=== PATIENT | female | born 1955 | race Caucasian/White ===

== ENCOUNTER → 2017-03-16 | Outpatient (CLI) | payer MEDICARE ==
--- NOTE | 2017-03-21 08:17 | MM ---
Reason for exam: screening (asymptomatic). Last mammogram was performed 1 year and 6 months ago. History: Patient is postmenopausal. Took estrogen for 18 years beginning at age 41. Physical Findings: A clinical breast exam by your physician is recommended on an annual basis and results should be correlated with mammographic findings. MG Screening Mammo w CAD Bilateral CC and MLO view(s) were taken. Prior study comparison: September 15, 2015, bilateral MG screening mammo w CAD. February 12, 2015, left breast MG diagnostic mammo LT w CAD. July 25, 2014, bilateral MG screening mammo w CAD. The breast tissue is heterogeneously dense. This may lower the sensitivity of mammography. There is chronic nodularity bilaterally. No significant changes when compared with prior studies. ASSESSMENT: Benign, BI-RAD 2 RECOMMENDATION: Routine screening mammogram of both breasts in 1 year.
== END | disposition home or self-care (01) ==
LOC: RADMAMWWP 07:15
PROVIDERS: ATTEND Family Medicine
DX: Z12.31 Encounter for screening mammogram for malignant neoplasm of breast (principal)

== ENCOUNTER → 2018-05-08 | Outpatient (CLI) | payer MEDICARE ==
--- NOTE | 2018-05-08 15:25 | MM ---
Reason for exam: screening (asymptomatic). Last mammogram was performed 1 year and 2 months ago. History: Patient is postmenopausal. Took estrogen for 18 years beginning at age 41. Physical Findings: A clinical breast exam by your physician is recommended on an annual basis and results should be correlated with mammographic findings. MG Screening Mammo w CAD Bilateral CC and MLO view(s) were taken. Prior study comparison: March 16, 2017, bilateral MG screening mammo w CAD. September 15, 2015, bilateral MG screening mammo w CAD. The breast tissue is heterogeneously dense. This may lower the sensitivity of mammography. Finding: There are typically benign round, regional calcifications in both breasts. There is no discrete abnormality. ASSESSMENT: Benign, BI-RAD 2 RECOMMENDATION: Routine screening mammogram of both breasts in 1 year.
== END | disposition home or self-care (01) ==
LOC: RADMAMWWP 07:53
PROVIDERS: ATTEND Family Medicine
DX: Z12.31 Encounter for screening mammogram for malignant neoplasm of breast (principal)
CPT/HCPCS: 77067

== ENCOUNTER → 2019-02-21 | Outpatient (CLI) | payer MEDICARE | END | disposition home or self-care (01) | LOC: LABWHC1 07:35 | PROVIDERS: ATTEND Internal Medicine Gastroenterology | DX: N28.9 Disorder of kidney and ureter, unspecified (principal); E83.52 Hypercalcemia | CPT/HCPCS: 36415; 82565; 83970; 84520 ==

== ENCOUNTER → 2019-03-05 | Outpatient (CLI) | payer MEDICARE ==
[2019-03-05 17:56] LABS: Parathyroid Hormone Intact 33.4 pg/mL (14.0-72.0)
[2019-03-05 17:57] LABS: Vitamin D 25 Hydroxy 32.6 ng/mL (30.0-100.0)
[2019-03-05 18:03] LABS: Albumin 4.4 g/dL (3.80-4.90); Anion Gap 10.3 mmol/L (4.00-12.00); Carbon Dioxide 25.7 mmol/L (21.6-31.8); Phosphorus 3.8 mg/dL (2.4-5.1); Potassium 5.4 mmol/L (3.5-5.5)
== END | disposition home or self-care (01) ==
LOC: LABWHC1 08:13
PROVIDERS: ATTEND Internal Medicine
DX: N17.9 Acute kidney failure, unspecified (principal); E83.52 Hypercalcemia
CPT/HCPCS: 36415; 80069; 82306; 83970

== ENCOUNTER → 2019-05-10 | Outpatient (CLI) | payer MEDICARE ==
--- NOTE | 2019-05-10 08:42 | CT ---
EXAMINATION TYPE: CT chest wo con DATE OF EXAM: 05/10/2019 COMPARISON: None HISTORY: Pulmonary nodule CT DLP: 374.[address] of the chest was performed with lung and mediastinal window settings submitted. The la ck of contrast limits evaluation of the vascular, mediastinal and parenchymal structures including th e upper abdomen. LUNGS: The lungs are clear and free of infiltrate. No atelectasis. No pulmonary nodule or mass is de tected. No pleural effusion. No CT evidence of interstitial lung disease. MEDIASTINUM/LISSETH: Ascending thoracic aortic aneurysm measuring 4.1 cm. Remaining thoracic aorta is of normal caliber. Mild atheromatous change is identified. The heart is not enlarged. No evidence for mediastinal mass. No lymph nodes greater than 1cm. UPPER ABDOMEN: No significant abnormality is seen. OTHER: No significant other abnormality. As made of a cystic left thyroid nodule. Splenic granulomas. Cholecystectomy clips. IMPRESSION: 1. No significant pulmonary nodularity. 2. Mild ascending thoracic aortic aneurysm without complicating factor
== END | disposition home or self-care (01) ==
LOC: RADCTMAIN 07:51
PROVIDERS: ATTEND Family Medicine
DX: R91.8 Other nonspecific abnormal finding of lung field (principal)
CPT/HCPCS: 71250

== ENCOUNTER → 2019-06-10 | Outpatient (CLI) | payer MEDICARE ==
--- NOTE | 2019-06-12 09:09 | MM ---
Reason for exam: screening (asymptomatic). Last mammogram was performed 1 year and 1 month ago. History: Patient is postmenopausal. Took estrogen for 18 years beginning at age 41. Physical Findings: A clinical breast exam by your physician is recommended on an annual basis and results should be correlated with mammographic findings. MG 3D Screening Mammo W/Cad Bilateral CC and MLO view(s) were taken. Prior study comparison: May 08, 2018, bilateral MG screening mammo w CAD. March 16, 2017, bilateral MG screening mammo w CAD. The breast tissue is heterogeneously dense. This may lower the sensitivity of mammography. There is chronic nodularity in the left breast. Possible spiculated focal asymmetry upper inner quadrant left breast. ASSESSMENT: Incomplete: need additional imaging evaluation, BI-RAD 0 RECOMMENDATION: Special view mammogram of the right breast. (3D) If lesion persists on supplemental views, image directed ultrasound is recommended. [facility] will attempt to contact patient to return for supplemental views and ultrasound if indicated.
== END | disposition home or self-care (01) ==
LOC: RADMAMWWP 08:24
PROVIDERS: ATTEND Family Medicine
DX: Z12.31 Encounter for screening mammogram for malignant neoplasm of breast (principal)
CPT/HCPCS: 77063; 77067

== ENCOUNTER → 2020-06-10 | Outpatient (CLI) | payer MEDICARE ==
--- NOTE | 2020-06-11 08:50 | CT ---
EXAMINATION TYPE: CT chest wo con DATE OF EXAM: 06/10/2020 COMPARISON: 05/09/2019 HISTORY: 65-year-old female Thoracic aortic aneurysm w/out rupture. Pt c/o increased SOB and diaphore tic upon exertion TECHNIQUE: Contiguous axial scanning of the chest without IV contrast. Coronal and sagittal reconstru ctions performed. CT DLP: 499.9 mGycm Automated exposure control for dose reduction was used. FINDINGS: A 1.6 cm hypodense nodule within the left lobe of thyroid gland has increased in size from 1.3 cm, pr eviously. 1.1 cm nodularity centrally in the left breast, axial image 18 may represent a prominent island of fi broglandular tissue. The patient's annual mammographic exam can be performed in diagnostic clinic. Heart normal size without pericardial effusion. Scattered LAD calcifications are present. Aortic root measures 3.4 cm. Ascending aorta aneurysmal at 4.2 cm. Proximal arch attending at 3.8 cm. Conventional arch vessel branching anatomy. Borderline ectatic lower descending thoracic aorta at 2.5 cm. Minimal atherosclerotic arch calcifications. No thoracic lymphadenopathy by CT size criteria. Mild biapical pleural-parenchymal scarring. Similar minimal 4 mm nodular thickening along the superior left major fissure on axial image 13 sugge sting an intrafissural lymph node. Additional few scattered through informative pulmonary nodules sagittal and axial image 35 on the rig ht and axial images 40, 43, and 51 on the left are also unchanged. No consolidation or pleural effusion. Visualized upper abdomen shows some calcified granulomas within the spleen and cholecystectomy clips. Bones: Mild anterior endplate spondylosis mid to lower thoracic spine. Some accentuated thoracic kyph osis. IMPRESSION: 1. 4.2 CM ASCENDING AORTIC ANEURYSM RELATIVELY SIMILAR AT 4.1 CM PREVIOUSLY. 2. SCATTERED LAD CALCIFICATIONS. 3. A FEW SCATTERED MINIMAL 3 TO 4 MG PROMINENT NODULES ARE UNCHANGED FROM 05/10/2019 COMPATIBLE WITH A BENIGN ETIOLOGY. 4. 1.1 CM CENTRAL LEFT BREAST NODULARITY. RECOMMEND THE PATIENT'S ANNUAL MAMMOGRAPHIC EXAM TO BE PERF ORMED DIAGNOSTIC MAMMOGRAMS TO FURTHER ASSESS. 5. A 1.6 CM NODULE IN THE LEFT LOBE OF THYROID GLAND, INCREASED FROM 1.3 CM ON 05/10/2019. DEDICATED T HYROID ULTRASOUND COULD FURTHER EVALUATE.
== END | disposition home or self-care (01) ==
LOC: RADCTMAIN 18:51
PROVIDERS: ATTEND Thoracic Surgery (Cardiothoracic Vascular Surgery)
DX: I71.2 Thoracic aortic aneurysm, without rupture (principal); I25.10 Atherosclerotic heart disease of native coronary artery without angina pectoris; R91.8 Other nonspecific abnormal finding of lung field; Z88.8 Allergy status to other drugs, medicaments and biological substances
CPT/HCPCS: 71250

== ENCOUNTER → 2020-06-17 | Outpatient (CLI) | payer MEDICARE ==
[2020-06-17 10:47] LABS: HCT 34.8 % (34.0-46.0); HGB 11.4 gm/dL (11.4-16.0); MCH 30.4 pg (25.0-35.0); MCHC 32.9 g/dL (31.0-37.0); MCV 92.7 fL (80.0-100.0); Mean Platelet Volume 8.6; Platelet Count 237 k/uL (150-450); RBC 3.75 m/uL (3.80-5.40); RDW 12.1 % (11.5-15.5); WBC 5.9 k/uL (3.8-10.6)
[2020-06-17 10:58] LABS: Potassium 5.3 mmol/L (3.5-5.1)
== END | disposition home or self-care (01) ==
LOC: LABPAT 09:46
PROVIDERS: ATTEND Internal Medicine Interventional Cardiology
DX: Z01.818 Encounter for other preprocedural examination (principal); R07.9 Chest pain, unspecified
CPT/HCPCS: 36415; 80051; 82565; 84520; 85027

== ENCOUNTER → 2020-07-24 | Outpatient (CLI) | payer MEDICARE ==
--- NOTE | 2020-07-27 08:57 | MM ---
Reason for exam: screening (asymptomatic). Last mammogram was performed 1 year and 1 month ago. History: Patient is postmenopausal. Took estrogen for 18 years beginning at age 41. Physical Findings: A clinical breast exam by your physician is recommended on an annual basis and results should be correlated with mammographic findings. MG 3D Screening Mammo W/Cad Bilateral CC and MLO view(s) were taken. Prior study comparison: June 10, 2019, bilateral MG 3d screening mammo w/cad. May 08, 2018, bilateral MG screening mammo w CAD. The breast tissue is heterogeneously dense. This may lower the sensitivity of mammography. Finding #1: There is a 12 mm high density, irregular mass in the upper outer quadrant of the left breast. Finding #2: There are typically benign calcifications in both breasts. ASSESSMENT: Incomplete: need additional imaging evaluation, BI-RAD 0 RECOMMENDATION: Special view mammogram of the left breast. If lesion persists on supplemental views, image directed ultrasound is recommended. [facility] will attempt to contact patient to return for supplemental views and ultrasound if indicated.
== END | disposition home or self-care (01) ==
LOC: RADMAMWWP 08:23
PROVIDERS: ATTEND Family Medicine
DX: Z12.31 Encounter for screening mammogram for malignant neoplasm of breast (principal)
CPT/HCPCS: 77063; 77067

== ENCOUNTER → 2020-07-31 | Outpatient (CLI) | payer MEDICARE ==
--- NOTE | 2020-08-03 10:30 | USB ---
Reason for exam: additional evaluation requested from abnormal screening. History: Patient is postmenopausal. Took estrogen for 18 years beginning at age 41. Physical Findings: Nurse Summary: thickened left breast upper half (nurse mj). US Breast Workup Limited LT Left limited breast ultrasound including focal area of concern, retroareolar and axilla demonstrates a 0.8 x 1.2 x 0.8cm irregular lesion at 12 o'clock and a 1.3 x 1.1 x 1.0cm benign lymph node, thin cortex at the axilla. These results were verbally communicated with the patient and result sheet given to the patient on 07/31/20. ASSESSMENT: Suspicious, BI-RAD 4 RECOMMENDATION: Ultrasound core biopsy of the left breast. Called Dr. Leos with mammographic findings and has scheduled an appointment for the patient for 08/13/20 at 1:[address] Carlin. PRELIMINARY REPORT CALLED AND FAXED TO DR. CARLIN ON 08/03/20.
== END | disposition home or self-care (01) ==
LOC: RADMAMWWP 09:43
PROVIDERS: ATTEND Family Medicine
DX: R92.8 Other abnormal and inconclusive findings on diagnostic imaging of breast (principal)

== ENCOUNTER → 2020-08-26 | Day surgery (SDC) | payer MEDICARE ==
[2020-08-26 12:08] VITALS: RESP 16
[2020-08-26 13:26] VITALS: BP 119/77; PULSE 76; TEMP 97.6
--- NOTE | 2020-08-26 13:33 | USB ---
EXAMINATION TYPE: US biopsy breast VAD LT DATE OF EXAM: 08/26/2020 CLINICAL HISTORY: R92.8 Abnormal [id number] Abnormal Mammogram. TECHNIQUE: Ultrasound guided core biopsy of left breast. COMPARISON: NONE FINDINGS: The procedure of ultrasound guided core biopsy was explained to the patient. Benefits, alternatives, and risks were discussed. An informed consent was then obtained. The patient was placed in supine positioning for imaging and for the procedure. The overlying skin was prepped and draped in usual sterile fashion. Lidocaine buffered with bicarbonate was used as anesthetic into the skin and subcutaneous tissue up to area of concern in the left breast. A rebeca was made with surgical scalpel. Under ultrasound guidance, a 12-gauge vacuum assisted biopsy gun device was used to obtain 6 core samples. Following this, a biopsy clip was left in lesion. Postprocedural mammogram demonstrated ideal placement of a surgical clip. The patient tolerated the procedure well without any immediate complication. The patient was kept in the radiology department for short stay after the procedure and then discharged home in stable condition. IMPRESSION: Successful, uncomplicated ultrasound guided core biopsy of area of concern in the left breast, full pathology results to follow. Pathology Results: Malignant LEFT BREAST, ULTRASOUND GUIDED CORE BIOPSY: Invasive moderately differentiated ductal carcinoma (Grade 2). See Surgical Pathology Cancer Case Summary. Recommendation Surgical consult of the left breast. BRIANNA
--- NOTE | 2020-08-26 14:42 | MM ---
Reason for exam: additional evaluation requested from abnormal screening. Last mammogram was performed 1 month ago. History: Patient is postmenopausal. Took estrogen for 18 years beginning at age 41. MG Diagnostic Mammo LT Wo CAD CC and LM view(s) were taken of the left breast. Prior study comparison: July 24, 2020, bilateral MG 3d screening mammo w/cad. June 10, 2019, bilateral MG 3d screening mammo w/cad. ASSESSMENT: Post procedure mammogram for marker placement RECOMMENDATION: Ultrasound of the left breast in 6 months. PENDING PATHOLOGY RESULTS.
== END ==
LOC: RADUSWWP 11:53
PROVIDERS: ATTEND Surgery
DX: C50.912 Malignant neoplasm of unspecified site of left female breast (principal); Z17.0 Estrogen receptor positive status [ER+]; Z88.8 Allergy status to other drugs, medicaments and biological substances
CPT/HCPCS: 88305; 88342; 88341; 77065; 19083; A4648; J2001

== ENCOUNTER → 2020-09-09 | Day surgery (SDC) | payer MEDICARE ==
[2020-09-07 14:33] VITALS: BMI 32.0
[~2020-09-09] MED LIST: ACETAMINOPHEN TAB 500 MG TAB PO ONE; ALPRAZolam 0.5 MG TAB ONE; BUPIVACAINE (PF) 0.25% 30 ML VIAL SQ ONE; DEXAMETHASONE SOD PHOSPHATE 4 MG/ML 1 ML VIAL IVP ONE; HEPARIN SODIUM,PORCINE 5,000 UNIT/ML 1 ML VIAL SQ ONE; HYDROmorphone (PF) 1 MG/ML ONE; HYDROmorphone 0.5 MG/0.5 ML SYRINGE IVP ONE; LACTATED RINGERS 1,000 ML IV ONE; LIDOCAINE 1% (10MG/ML) FOR IV START INTRADERMA ONE; LIDOCAINE 1% INJ 10MG/ML (20 ML MDV) ONE; LIDOCAINE 1% INJ 10MG/ML (20 ML MDV) SQ ONE; METHYLENE BLUE 10 MG/ML (10 ML VIAL) INJ ONE; MIDAZOLAM 2 MG/2 ML VIAL ONE; ONDANSETRON 4 MG/2 ML VIAL ONE; PROPOFOL 10 MG/ML 20 ML VIAL IV ONE; Pre Op ABX Message 1 EACH MISC MISCELLANE ONE; SODIUM CHLORIDE 0.9% 50 ML with ceFAZolin 2,000 MG IV ONE; SUCCINYLCHOLINE CHLORIDE 100 MG/5 ML SYR IV ONE; fentaNYL (PF) 50 MCG/ML 2 ML AMP ONE
[2020-09-09 08:37] LABS: Glucose,Whole Blood 227 mg/dL (75-99)
--- NOTE | 2020-09-09 08:43 | P.GSHP ---
History of Present Illness H&P Date: 09/09/20 Chief Complaint: Left breast cancer This is a 65-year-old female who's recently diagnosed left breast cancer. Patient presents today for left breast needle localized lumpectomy with sentinel node biopsy. Past Medical History Past Medical History: Cancer, Diabetes Mellitus, GERD/Reflux, Hyperlipidemia, Hypertension, Liver Disease, Renal Disease Additional Past Medical History / Comment(s): Current left breast cancer. Fatty Liver. "Kidney function not good". History of Any Multi-Drug Resistant Organisms: None Reported Past Surgical History: Cholecystectomy, Heart Catheterization, Hysterectomy, Joint Replacement, Tubal Ligation Additional Past Surgical History / Comment(s): Right total knee replacement, bilateral knee arthroscopy, bilateral cataracts removed. Past Anesthesia/Blood Transfusion Reactions: Previous Problems w/ Anesthesia Additional Past Anesthesia/Blood Transfusion Reaction / Comment(s): "Comes out of anesthesia slowly." Past Psychological History: Anxiety, Depression Smoking Status: Never smoker Past Alcohol Use History: None Reported Past Drug Use History: None Reported - Past Family History Mother Family Medical History: Cancer Additional Family Medical History / Comment(s): Cervical or ovarain cancer. Brother(s) Family Medical History: Cancer Additional Family Medical History / Comment(s): Pancreatic Cancer. Medications and Allergies Home Medications Medication Instructions Recorded Confirmed Type ALPRAZolam [Xanax] 0.5 mg PO BID PRN 08/19/20 09/09/20 History Aspirin 81 mg PO DAILY 08/19/20 09/09/20 History Lisinopril-Hctz 20-12.5 mg 1 tab PO QAM 08/19/20 09/09/20 History [Zestoretic 20-12.5] Lovastatin [Mevacor] 40 mg PO HS 08/19/20 09/09/20 History Magnesium Oxide 400 mg PO TID 08/19/20 09/09/20 History Metoprolol Tartrate [Lopressor] 25 mg PO BID 08/19/20 09/09/20 History Omeprazole 20 mg PO DAILY 08/19/20 09/09/20 History ursodioL [Ursodiol] 600 mg PO TID 08/19/20 09/09/20 History Glimepiride [Amaryl] 4 mg PO DAILY 09/07/20 09/09/20 History Insulin Glargine [Lantus] 15 unit SQ HS 09/07/20 09/09/20 History Psyllium Husk [Metamucil] 0.4 gm PO DAILY 09/07/20 09/09/20 History metFORMIN HCL [Glucophage] 1,000 mg PO BID 09/07/20 09/09/20 History Allergies Allergy/AdvReac Type Severity Reaction Status Date / Time hydralazine [From Apresoline] AdvReac Rapid Verified 09/09/20 08:34 Heart Rate Surgical - Exam Vital Signs Temp Pulse Resp BP Pulse Ox 98.3 F 80 18 123/68 95 09/09/20 08:28 09/09/20 08:28 09/09/20 08:28 09/09/20 08:28 09/09/20 08:28 - General well developed, well nourished, no distress - Eyes PERRL - ENT normal pinna - Neck no masses - Respiratory normal expansion - Cardiovascular Rhythm: regular - Abdomen Abdomen: soft, non tender Breasts within normal limits. There is no masses palpated. There is no cervical or axillary lymphadenopathy. Results - Labs Abnormal Lab Results - Last 24 Hours (Table) 09/09/20 Range/Units 08:34 POC Glucose (mg/dL) 227 H (75-99) mg/dL Assessment and Plan Assessment: Left breast cancer. We'll perform left breast needle localized lumpectomy with sentinel node biopsy
--- NOTE | 2020-09-09 10:27 | NM ---
EXAMINATION TYPE: NM sentinel node injection DATE OF EXAM: 09/09/2020 COMPARISON: NONE HISTORY: LEFT BREAST CANCER TECHNIQUE AND FINDINGS: The procedure of sentinel lymph node injection was explained to the patient. The benefits, alternatives, and risks were discussed. An informed consent was then obtained. Overlying skin is cleaned with sterile alcohol. Following this, 527 uCi Tc99m Tilmanocept was inject ed in the upper outer aspect of the left nipple intradermally. The patient tolerated the procedure well without any immediate complication. The patient was kept in the radiology department for short stay after the procedure and then taken to surgery for surgical p rocedure what is presumed intraoperative gamma probe will be used for sentinel lymph node detection. IMPRESSION: left breast radiotracer injection for sentinel node localization as above.
[2020-09-09 13:41] LABS: Glucose,Whole Blood 214 mg/dL (75-99)
[2020-09-09 13:45] VITALS: TEMP 97.3
--- NOTE | 2020-09-09 14:11 | MM ---
EXAMINATION TYPE: MG surgical specimen LT, MG pre op needle loc LT DATE OF EXAM: 09/09/2020 1:00 PM COMPARISON: NONE HISTORY: Left breast carcinoma Informed consent was obtained and all the patient's questions were answered. The lesion and clip in question was localized mammographically. The standard sterile technique was utilized, as well as appropriate local anesthesia with 1% Lidocaine . Localization needle followed by placement of a guidewire was performed under mammographic guidance. Verification images demonstrate appropriate deployment of the guidewire. The patient tolerated the procedure well and left the department in stable condition. Specimen radiograph demonstrates the lesion and clip in question to reside within the specimen. IMPRESSION: Successful needle localization and open biopsy left breast with pathology results pending . Pathology Results: Malignant A. LEFT BREAST, SENTINELYMPH NODE #1, BIOPSY: Lymph node negative for metastasis. CK7 and ALEKSANDRA immunoperoxidase stains are confirmatory (controls appropriate). B. LEFT BREAST, SENTINEL LYMPH NODE #2, BIOPSY: Three total lymph nodes negative for metastasis. CK7 and ALEKSANDRA immunoperoxidase stains are confirmatory (controls appropriate). C. LEFT BREAST, LUMPECTOMY: Invasive moderately differentiated ductal carcinoma (Grade 2) and Grade 1-2 DCIS. Invasive tumor contacts the black (superior) margin multifocally, margins negative for DCIS. See Surgical Pathology Cancer Case Summary. Recommendation Surgical consult of the left breast. BRIANNA
--- NOTE | 2020-09-09 14:31 | P.OP ---
Date of Procedure: 09/09/20 Preoperative Diagnosis: Left breast cancer Postoperative Diagnosis: Left breast cancer Procedure(s) Performed: Left breast lumpectomy localization and sentinel node biopsy Anesthesia: OXANA Surgeon: Maximino Carlin Estimated Blood Loss (ml): 10 Pathology: other (Breast lumpectomy and sentinel node) Condition: stable Disposition: PACU Description of Procedure: The patient's placed on the operative table in supine position. She received general anesthesia. Her left breast was prepped and draped usual sterile fashion. The breast was injected with methylene blue. The skin was incised at the wire site and then using electrocautery Harmonic scissors a lumpectomy was performed. The specimen was sent to mammography and the lesion was confirmed to be within the lumpectomy. Clips were placed into the lumpectomy site. The specimen had been painted orientate the specimen. Next an incision was made examined the clavipectoral fascia was divided with cautery. The seminal was confirmed with the neoprobe. Using Harmonic scissors second load was dissected free and sent to pathology. Frozen section did not reveal any evidence metastases several other lymph nodes were sent as well. The skin was then closed with interrupted 3-0 Monocryl suture. Dermabond was applied. Patient top she will sent to recovery room in stable condition.
[2020-09-09 14:32] VITALS: RESP 17
[2020-09-09 15:09] VITALS: BP 139/88; PULSE 72
== END ==
LOC: OR 07:48
PROVIDERS: ATTEND Surgery
DX: C50.912 Malignant neoplasm of unspecified site of left female breast (principal); E11.9 Type 2 diabetes mellitus without complications; K21.9 Gastro-esophageal reflux disease without esophagitis; E78.5 Hyperlipidemia, unspecified; I10 Essential (primary) hypertension; K76.9 Liver disease, unspecified; N28.9 Disorder of kidney and ureter, unspecified; K76.0 Fatty (change of) liver, not elsewhere classified; Z90.49 Acquired absence of other specified parts of digestive tract; Z90.710 Acquired absence of both cervix and uterus; Z98.51 Tubal ligation status; Z96.651 Presence of right artificial knee joint; Z98.42 Cataract extraction status, left eye; Z98.41 Cataract extraction status, right eye; Z98.890 Other specified postprocedural states; F41.9 Anxiety disorder, unspecified; F32.9 Major depressive disorder, single episode, unspecified; Z80.49 Family history of malignant neoplasm of other genital organs; Z80.0 Family history of malignant neoplasm of digestive organs; Z79.82 Long term (current) use of aspirin; Z79.4 Long term (current) use of insulin; Z79.899 Other long term (current) drug therapy; Z88.8 Allergy status to other drugs, medicaments and biological substances
CPT/HCPCS: 19301; 38525; 88342; 88331; 88332; 88307; 88341; 76098; 38792; A9520; J2250; J1644; J1100; J2405; J0690; J2001; Q9968; J3010; J1170 ×2; J0330; J2704

== ENCOUNTER 2020-09-29 07:13 | Day surgery (SDC) | payer MEDICARE ==
[2020-09-28 09:19] VITALS: BMI 32.3
[~2020-09-29 07:13] MED LIST changes: -ACETAMINOPHEN TAB 500 MG TAB PO ONE; +ACETAMINOPHEN TAB 500 MG TAB PO PRN; -ALPRAZolam 0.5 MG TAB ONE; -BUPIVACAINE (PF) 0.25% 30 ML VIAL SQ ONE; +DEXAMETHASONE SOD PHOSPHATE 4 MG/ML 1 ML VIAL IV ONE; -DEXAMETHASONE SOD PHOSPHATE 4 MG/ML 1 ML VIAL IVP ONE; -HEPARIN SODIUM,PORCINE 5,000 UNIT/ML 1 ML VIAL SQ ONE; +HEPARIN SODIUM,PORCINE 5,000 UNIT/ML 1 ML VIAL SQ PRN; -HYDROmorphone (PF) 1 MG/ML ONE; -HYDROmorphone 0.5 MG/0.5 ML SYRINGE IVP ONE; -LACTATED RINGERS 1,000 ML IV ONE; +LACTATED RINGERS 1,000 ML IV SCH; -LIDOCAINE 1% (10MG/ML) FOR IV START INTRADERMA ONE; +LIDOCAINE 1% (10MG/ML) FOR IV START INTRADERMA PRN; -LIDOCAINE 1% INJ 10MG/ML (20 ML MDV) ONE; -LIDOCAINE 1% INJ 10MG/ML (20 ML MDV) SQ ONE; -METHYLENE BLUE 10 MG/ML (10 ML VIAL) INJ ONE; -MIDAZOLAM 2 MG/2 ML VIAL ONE; +ONDANSETRON 4 MG/2 ML VIAL IVP ONE; -ONDANSETRON 4 MG/2 ML VIAL ONE; -PROPOFOL 10 MG/ML 20 ML VIAL IV ONE; +SCOPOLAMINE 1.5MG/72HR PATCH TRANSDERM ONE; -SODIUM CHLORIDE 0.9% 50 ML with ceFAZolin 2,000 MG IV ONE; -SUCCINYLCHOLINE CHLORIDE 100 MG/5 ML SYR IV ONE; -fentaNYL (PF) 50 MCG/ML 2 ML AMP ONE
[2020-09-29 07:55] LABS: Glucose,Whole Blood 205 mg/dL (75-99)
--- NOTE | 2020-09-29 08:49 | P.GSHP ---
History of Present Illness H&P Date: 09/29/20 Chief Complaint: Left breast cancer This a 65-year-old female who was previously diagnosed left breast cancer. Patient underwent recent lobectomy. Her superior margin was positive. Patient presents today for excision. Past Medical History Past Medical History: Cancer, Diabetes Mellitus, GERD/Reflux, Hyperlipidemia, Hypertension, Liver Disease, Renal Disease Additional Past Medical History / Comment(s): Current left breast cancer. Fatty Liver. "Kidney function not good". History of Any Multi-Drug Resistant Organisms: None Reported Past Surgical History: Cholecystectomy, Heart Catheterization, Hysterectomy, Joint Replacement, Tubal Ligation Additional Past Surgical History / Comment(s): Right total knee replacement, bilateral knee arthroscopy, bilateral cataracts removed. Past Anesthesia/Blood Transfusion Reactions: Previous Problems w/ Anesthesia Additional Past Anesthesia/Blood Transfusion Reaction / Comment(s): "Comes out of anesthesia slowly." Past Psychological History: Anxiety, Depression Smoking Status: Never smoker Past Alcohol Use History: None Reported Past Drug Use History: None Reported - Past Family History Mother Family Medical History: Cancer Additional Family Medical History / Comment(s): Cervical or ovarain cancer. Brother(s) Family Medical History: Cancer Additional Family Medical History / Comment(s): Pancreatic Cancer. Medications and Allergies Home Medications Medication Instructions Recorded Confirmed Type ALPRAZolam [Xanax] 0.5 mg PO BID PRN 08/19/20 09/28/20 History Aspirin 81 mg PO DAILY 08/19/20 09/28/20 History Lisinopril-Hctz 20-12.5 mg 1 tab PO QAM 08/19/20 09/28/20 History [Zestoretic 20-12.5] Lovastatin [Mevacor] 40 mg PO HS 08/19/20 09/28/20 History Magnesium Oxide 400 mg PO TID 08/19/20 09/28/20 History Metoprolol Tartrate [Lopressor] 25 mg PO BID 08/19/20 09/28/20 History Omeprazole 20 mg PO QAM 08/19/20 09/28/20 History ursodioL [Ursodiol] 600 mg PO TID 08/19/20 09/28/20 History Glimepiride [Amaryl] 4 mg PO DAILY 09/07/20 09/28/20 History Insulin Glargine [Lantus] 15 unit SQ HS 09/07/20 09/28/20 History Psyllium Husk [Metamucil] 0.4 gm PO DAILY 09/07/20 09/28/20 History metFORMIN HCL [Glucophage] 1,000 mg PO BID 09/07/20 09/28/20 History Acetaminophen Tab [Tylenol] 650 mg PO Q6H #30 tab 09/09/20 09/28/20 Rx Ibuprofen [Motrin] 600 mg PO Q6HR PRN #40 tab 09/09/20 09/28/20 Rx oxyCODONE HCL [OxyIR] 5 mg PO Q4H PRN 3 Days #18 tab 09/09/20 09/28/20 Rx Allergies Allergy/AdvReac Type Severity Reaction Status Date / Time hydralazine [From Apresoline] AdvReac Rapid Verified 09/29/20 07:33 Heart Rate Paper Tape Allergy Severe Rash/Hives Uncoded 09/29/20 07:33 surgical glue Allergy Severe Rash/Hives Uncoded 09/29/20 07:33 Surgical - Exam Vital Signs Temp Pulse Resp BP Pulse Ox 96.8 F L 73 17 112/70 100 09/29/20 07:33 09/29/20 07:33 09/29/20 07:33 09/29/20 07:33 09/29/20 07:33 - General well developed, well nourished, no distress - Eyes PERRL - ENT normal pinna - Neck no masses - Respiratory normal expansion - Cardiovascular Rhythm: regular - Abdomen Abdomen: soft, non tender - Integumentary Healing left breast lumpectomy site Results - Labs Abnormal Lab Results - Last 24 Hours (Table) 09/29/20 Range/Units 07:51 POC Glucose (mg/dL) 205 H (75-99) mg/dL Assessment and Plan Assessment: Left breast cancer. Patient undergo reexcision of her left breast lumpectomy
[2020-09-29] MEDS ORDERED: BUPIVACAINE (PF) 0.25% 30 ML VIAL SQ ONE ×2 (09:04→09:27)
[2020-09-29] MEDS ORDERED: PROPOFOL 10 MG/ML 20 ML VIAL IV ONE (09:05)
[2020-09-29] MEDS ORDERED: fentaNYL (PF) 50 MCG/ML 2 ML AMP ONE (09:05)
[2020-09-29] MEDS ORDERED: SUCCINYLCHOLINE CHLORIDE 100 MG/5 ML SYR IV ONE (09:05)
[2020-09-29] MEDS ORDERED: MIDAZOLAM 2 MG/2 ML VIAL ONE (09:05)
[2020-09-29] MEDS ORDERED: KETOROLAC 15 MG/ML 1 ML VIAL ONE (09:05)
[2020-09-29] MEDS ORDERED: SODIUM CHLORIDE 0.9% 50 ML with ceFAZolin 2,000 MG IV ONE ×2 (09:25)
[2020-09-29] MEDS: HYDROmorphone 0.5 MG/0.5 ML SYRINGE IVP PRN ×2 (10:05→10:10)
--- NOTE | 2020-09-29 10:07 | P.OP ---
Date of Procedure: 09/29/20 Preoperative Diagnosis: Left breast cancer Postoperative Diagnosis: Left breast cancer Procedure(s) Performed: Reexcision left breast lumpectomy Anesthesia: MYAA Surgeon: Maximino Carlin Estimated Blood Loss (ml): 10 Pathology: other (Left breast biopsy) Condition: stable Disposition: PACU Description of Procedure: Patient's placed on the operative table in the supine position. She received MAC. Her left breast was prepped and draped usual sterile fashion. Elliptical skin incision was made around her previous scar. Then using cautery and Harmonic scissors the superior portion of the lumpectomy site was reexcised. Clips were placed in the area. He was achieved. Skin was closed interrupted 3- 0 Monocryl suture. Dermabond was applied. Patient top she will was sent to recovery in stable condition.
[2020-09-29 10:17] VITALS: TEMP 96.9
[2020-09-29] MEDS ORDERED: LACTATED RINGERS 1,000 ML IV ONE ×2 (10:26)
[2020-09-29 10:31] VITALS: RESP 16
[2020-09-29 10:41] LABS: Glucose,Whole Blood 153 mg/dL (75-99)
[2020-09-29 11:43] VITALS: BP 120/87; PULSE 80
== END 2020-09-29 12:00 | disposition home or self-care (01) ==
LOC: OR 07:13
PROVIDERS: ATTEND Surgery
DX: N60.12 Diffuse cystic mastopathy of left breast (principal); C50.912 Malignant neoplasm of unspecified site of left female breast; E11.9 Type 2 diabetes mellitus without complications; K21.9 Gastro-esophageal reflux disease without esophagitis; E78.5 Hyperlipidemia, unspecified; I10 Essential (primary) hypertension; N28.9 Disorder of kidney and ureter, unspecified; K76.0 Fatty (change of) liver, not elsewhere classified; Z90.49 Acquired absence of other specified parts of digestive tract; Z90.710 Acquired absence of both cervix and uterus; Z96.651 Presence of right artificial knee joint; Z98.51 Tubal ligation status; Z98.42 Cataract extraction status, left eye; Z98.41 Cataract extraction status, right eye; Z98.890 Other specified postprocedural states; F41.9 Anxiety disorder, unspecified; F32.9 Major depressive disorder, single episode, unspecified; Z80.0 Family history of malignant neoplasm of digestive organs; Z80.9 Family history of malignant neoplasm, unspecified; Z79.82 Long term (current) use of aspirin; Z79.4 Long term (current) use of insulin; Z79.891 Long term (current) use of opiate analgesic; Z79.899 Other long term (current) drug therapy; Z88.8 Allergy status to other drugs, medicaments and biological substances; Z91.09 Other allergy status, other than to drugs and biological substances; Z79.1 Long term (current) use of non-steroidal anti-inflammatories (NSAID)
CPT/HCPCS: 19301; 88307; J2250; J1644; J2405; J0690; J3010; J1885; J0330; J2704; J1170

== ENCOUNTER 2020-11-21 08:12 | Inpatient (IN) | payer MEDICARE ==
[2020-11-21] MEDS ORDERED: SODIUM CHLORIDE 0.9% 1,000 ML IV STA ×2 (08:32→09:46)
[2020-11-21 08:51] LABS: HCT 31.6 % (34.0-46.0); HGB 10.8 gm/dL (11.4-16.0); MCH 29.9 pg (25.0-35.0); MCHC 34.1 g/dL (31.0-37.0); Mean Platelet Volume 7.6; Platelet Count 267 k/uL (150-450); RBC 3.61 m/uL (3.80-5.40); RDW 12.1 % (11.5-15.5); WBC 19.3 k/uL (3.8-10.6)
[2020-11-21 08:52] LABS: MCV 87.6 fL (80.0-100.0)
--- NOTE | 2020-11-21 08:52 | ED ---
Female Urogenital HPI - General Chief complaint: Urogenital Stated complaint: Poss UTI/dehydrate/post 1st chemo Time Seen by Provider: 11/21/20 08:19 Source: patient Mode of arrival: wheelchair Limitations: no limitations - History of Present Illness Initial comments: Patient is a 65-year-old female, currently undergoing chemotherapy for breast cancer, presenting to the emergency Department with complaints of dehydration, possible UTI. Patient states she had her first chemo treatment last week. She is receiving a total of 4 treatments, every 3 weeks. She has been feeling nauseous, no vomiting. She has had some intermittent diarrhea. She states that for the past week she's been feeling some lower abdominal pressure and dysuria and is concerned that she has a UTI. She states she feels the same way last time she had a UTI. He denies any abdominal pain but describes it more as lower pressure over her bladder. She denies any fever or chills, no chest pain or shortness of breath. She states her appetite has been low but she is trying to drink water. She also feels like her mouth is dry and her throat is dry. She has no further complaints at this time. Upon arrival to the ER, her vital signs are stable. - Related Data Home Medications Medication Instructions Recorded Confirmed ALPRAZolam [Xanax] 0.5 mg PO TID PRN 08/19/20 11/21/20 Aspirin 81 mg PO DAILY 08/19/20 11/21/20 Lisinopril-Hctz 20-12.5 mg 1 tab PO QAM 08/19/20 11/21/20 [Zestoretic 20-12.5] Lovastatin [Mevacor] 40 mg PO HS 08/19/20 11/21/20 Magnesium Oxide 400 mg PO TID 08/19/20 11/21/20 Metoprolol Tartrate [Lopressor] 25 mg PO BID 08/19/20 11/21/20 Omeprazole 20 mg PO QAM 08/19/20 11/21/20 ursodioL [Ursodiol] 600 mg PO BID 08/19/20 11/21/20 Insulin Glargine [Lantus] 15 unit SQ HS 09/07/20 11/21/20 Psyllium Husk [Metamucil] 0.4 gm PO DAILY 09/07/20 11/21/20 metFORMIN HCL [Glucophage] 1,000 mg PO BID 09/07/20 11/21/20 Glimepiride [Amaryl] 4 mg PO BID 11/12/20 11/21/20 Dexamethasone [Decadron] 4 mg PO DIRECTED 11/21/20 11/21/20 Lutein 20 mg PO DAILY 11/21/20 11/21/20 OLANZapine [ZyPREXA] 5 mg PO DAILY PRN 11/21/20 11/21/20 Ondansetron [Zofran] 4 - 8 mg PO Q8H PRN 11/21/20 11/21/20 Vas-Ijgm-Gdirq Acid 2 cap PO DAILY 11/21/20 11/21/20 [-U Capsule (formulary)] traMADol HCL 50 - 100 mg PO Q6H PRN 11/21/20 11/21/20 ursodioL [Ursodiol] 300 mg PO DAILY@1200 11/21/20 11/21/20 Allergies Allergy/AdvReac Type Severity Reaction Status Date / Time hydralazine [From Apresoline] AdvReac Rapid Verified 11/21/20 09:08 Heart Rate Paper Tape Allergy Severe Rash/Hives Uncoded 11/21/20 08:18 surgical glue Allergy Severe Rash/Hives Uncoded 11/21/20 08:18 Review of Systems ROS Statement: Those systems with pertinent positive or pertinent negative responses have been documented in the HPI. ROS Other: All systems not noted in ROS Statement are negative. Past Medical History Past Medical History: Cancer, Diabetes Mellitus, GERD/Reflux, Hyperlipidemia, Hypertension, Liver Disease, Renal Disease Additional Past Medical History / Comment(s): Current left breast cancer. Fatty Liver. "Kidney function not good". History of Any Multi-Drug Resistant Organisms: None Reported Past Surgical History: Cholecystectomy, Heart Catheterization, Hysterectomy, Joint Replacement, Tubal Ligation Additional Past Surgical History / Comment(s): Right total knee replacement, bilateral knee arthroscopy, bilateral cataracts removed. Past Anesthesia/Blood Transfusion Reactions: Previous Problems w/ Anesthesia Additional Past Anesthesia/Blood Transfusion Reaction / Comment(s): "Comes out of anesthesia slowly." Past Psychological History: Anxiety, Depression Smoking Status: Never smoker Past Alcohol Use History: None Reported Past Drug Use History: None Reported - Past Family History Mother Family Medical History: Cancer Additional Family Medical History / Comment(s): Cervical or ovarain cancer. Brother(s) Family Medical History: Cancer Additional Family Medical History / Comment(s): Pancreatic Cancer. General Exam - General Exam Comments Initial Comments: GENERAL: Patient is well-developed and well-nourished. Patient is nontoxic and in no acute distress. HEAD: Atraumatic, normocephalic. EYES: Pupils equal round and reactive to light, extraocular movements intact, sclera anicteric, conjunctiva are normal. Eyelids were unremarkable. ENT: TMs normal, nares patent, oropharynx clear without exudates. Dry mucous membranes. NECK: Normal range of motion, supple without lymphadenopathy or JVD. LUNGS: Unlabored respirations. Breath sounds clear to auscultation bilaterally and equal. No wheezes rales or rhonchi. HEART: Regular rate and rhythm without murmurs, rubs or gallops. ABDOMEN: Mild suprapubic tenderness on palpation, no other areas of abdominal pain. Soft, nontender, normoactive bowel sounds. No guarding, no rebound. No masses appreciated. : Deferred MUSCULOSKELETAL: Normal extremities with adequate strength and normal range of motion, no pitting or edema. No clubbing or cyanosis. NEUROLOGICAL: Patient is alert and oriented x 3. Motor and sensory are also intact. Cranial nerves II through XII grossly intact. Symmetrical smile. Normal speech, normal gait. PSYCH: Normal mood, normal affect. SKIN: Warm, Dry, normal turgor, no rashes or lesions noted. Limitations: no limitations Course Vital Signs 11/21/20 11/21/20 08:15 10:00 Temperature 98.4 F Pulse Rate 89 76 Respiratory 16 17 Rate Blood Pressure 115/76 102/63 O2 Sat by Pulse 100 100 Oximetry Medical Decision Making - Medical Decision Making Patient is 65-year-old female here with concerns for UTI. She received her first chemo treatment for breast cancer last week. Her vital signs are stable, she is been afebrile. Mild nausea and intermittent diarrhea as well. Labs show leukocytosis of 19.3, she does get a white cell booster. Sodium is low at 117, magnesium and also low at 0.9, kidney function is slightly bumped at 1.50. Urine shows no evidence of infection. Patient was already given 1 L of fluids and Zofran for nausea. Patient will be admitted for hypomagnesemia and hyponatremia. Patient was given another liter of fluids and is started on a total of 3 g of magnesium. Patient was accepted by Dr. Brown. Dr. Zepeda on consult. Case discussed with Dr. Hopper. - Lab Data Result diagrams: 11/21/20 08:39 11/21/20 08:39 Lab Results 11/21/20 11/21/20 11/21/20 Range/Units 08:39 08:39 08:39 WBC 19.3 H (3.8-10.6) k/uL RBC 3.61 L (3.80-5.40) m/uL Hgb 10.8 L (11.4-16.0) gm/dL Hct 31.6 L (34.0-46.0) % MCV 87.6 D (80.0-100.0) fL MCH 29.9 (25.0-35.0) pg MCHC 34.1 (31.0-37.0) g/dL RDW 12.1 (11.5-15.5) % Plt Count 267 (150-450) k/uL MPV 7.6 Neutrophils % Not Reportable Neutrophils % (Manual) 77 % Band Neuts % (Manual) 4 % Lymphocytes % Not Reportable Lymphocytes % (Manual) 12 % Monocytes % Not Reportable Monocytes % (Manual) 5 % Eosinophils % Not Reportable Basophils % Not Reportable Basophils % (Manual) 1 % Metamyelocytes % 1 % Myelocytes % 2 % Neutrophils # Not Reportable Neutrophils # (Manual) 15.60 H (1.3-7.7) k/uL Lymphocytes # Not Reportable Lymphocytes # (Manual) 2.32 (1.0-4.8) k/uL Monocytes # Not Reportable Monocytes # (Manual) 0.97 (0-1.0) k/uL Eosinophils # Not Reportable Basophils # Not Reportable Basophils # (Manual) 0.19 (0-0.2) k/uL Metamyelocytes # (Man) 0.19 H (0) k/uL Myelocytes # (Manual) 0.39 H (0) k/uL Nucleated RBCs 0 (0-0) /100 WBC Manual Slide Review Performed Toxic Granulation Present Sodium 117 L* (137-145) mmol/L Potassium 4.4 (3.5-5.1) mmol/L Chloride 86 L (98-107) mmol/L Carbon Dioxide 18 L (22-30) mmol/L Anion Gap 13 mmol/L BUN 26 H (7-17) mg/dL Creatinine 1.50 H (0.52-1.04) mg/dL Est GFR (CKD-EPI)AfAm 43 (>60 ml/min/1.73 sqM) Est GFR (CKD-EPI)NonAf 37 (>60 ml/min/1.73 sqM) Glucose 236 H (74-99) mg/dL Calcium 9.1 (8.4-10.2) mg/dL Magnesium 0.9 L* (1.6-2.3) mg/dL Total Bilirubin 0.4 (0.2-1.3) mg/dL AST 41 H (14-36) U/L ALT 40 H (4-34) U/L Alkaline Phosphatase 96 (38-126) U/L Total Protein 6.1 L (6.3-8.2) g/dL Albumin 3.3 L (3.5-5.0) g/dL Urine Color Light Yellow Urine Appearance Clear (Clear) Urine pH 5.0 (5.0-8.0) Ur Specific [place] 1.005 (1.001-1.035) Urine Protein Negative (Negative) Urine Glucose (UA) Trace H (Negative) Urine Ketones Negative (Negative) Urine Blood Negative (Negative) Urine Nitrite Negative (Negative) Urine Bilirubin Negative (Negative) Urine Urobilinogen <2.0 (<2.0) mg/dL Ur Leukocyte Esterase Trace H (Negative) Urine RBC 2 (0-5) /hpf Urine WBC 1 (0-5) /hpf Ur Squamous Epith Cells 1 (0-4) /hpf Urine Bacteria Rare H (None) /hpf Critical Care Time Critical Care Time: Yes Total Critical Care Time: 35 (Patient presents feeling dehydrated, 1 week after her first chemo treatment for breast cancer. Sodium was low at 117, magnesium was 0.9. Patient will be admitted.) Disposition Clinical Impression: Hyponatremia, Hypomagnesemia Disposition: ADMITTED IP TO THIS [facility] Condition: Stable Decision Date: 11/21/20 Decision Time: 09:59
[2020-11-21 08:59] LABS: Appearance,Urine Clear (Clear); Bacteria,Urine Rare /hpf; Bilirubin,Urine Negative (Negative); Blood,Urine Negative (Negative); Color,Urine Light Yellow; Glucose,Urine (UA) Trace (Negative); Ketones,Urine Negative (Negative); Leukocyte Esterase,Urine Trace (Negative); Nitrite,Urine Negative (Negative); Protein,Urine Negative (Negative); RBC,Urine 2 /hpf (0-5); Specific Gravity,Urine 1.005 (1.001-1.035); Squamous Epithelial Cell,Urine 1 /hpf (0-4); Urobilinogen,Urine <2.0 mg/dL (<2.0); WBC,Urine 1 /hpf (0-5)
[2020-11-21 09:03] LABS: Albumin 3.3 g/dL (3.5-5.0); Band Neutrophils % 4 %; Basophils # (M) 0.19 k/uL (0-0.2); Calcium 9.1 mg/dL (8.4-10.2); Lymphocytes # (M) 2.32 k/uL (1.0-4.8); Metamyelocytes # (M) 0.19 k/uL (0); Metamyelocytes % 1 %; Monocytes # (M) 0.97 k/uL (0-1.0); Myelocytes # (M) 0.39 k/uL (0); Myelocytes % 2 %; Neutrophils % (M) 77 %; Nucleated Red Blood Cells 0 /100 WBC (0-0); Potassium 4.4 mmol/L (3.5-5.1); Total Bilirubin 0.4 mg/dL (0.2-1.3); Total Cells Counted 200; Total Protein 6.1 g/dL (6.3-8.2)
[2020-11-21 09:04] LABS: Toxic Granulation Present
[2020-11-21 09:15] LABS: Magnesium 0.9 mg/dL (1.6-2.3)
[2020-11-21] MEDS ORDERED: NALOXONE 0.4 MG/ML 1 ML VIAL IV PRN (09:54)
[2020-11-21] MEDS ORDERED: MAGNESIUM SULFATE-D5W PMX 1 GM in DEXTROSE/WATER 1 100ML.BAG IVPB ONE ×2 (09:54→13:10)
[2020-11-21] MEDS ORDERED: ACETAMINOPHEN TAB 325 MG TAB PO PRN (09:54)
[2020-11-21] MEDS ORDERED: ONDANSETRON 4 MG/2 ML VIAL IVP PRN ×2 (09:54→14:14)
[2020-11-21] MEDS: MAGNESIUM SULFATE-D5W PMX 1 GM in DEXTROSE/WATER 1 100ML.BAG IVPB SCH ×3 (09:54→13:55)
[2020-11-21] MEDS: SODIUM CHLORIDE 0.9% 1,000 ML IV SCH ×2 (11:24→17:21)
[2020-11-21 12:11] LABS: Glucose,Whole Blood 176 mg/dL (75-99)
--- NOTE | 2020-11-21 12:48 | P.NPCON ---
History of Present Illness - Reason for Consult Consult date: 11/21/20 hyponatremia - Chief Complaint Hyponatremia and acute kidney injury - History of Present Illness This is a 65-year-old female seen in consultation because of sodium of 117 on admission, as well as acute kidney injury and chronic kidney disease. She came in because of loss of appetite and nausea diarrhea. She's been trying to drink fair amount of water in She denies any headache confusion seizures syncope, does have mild dizziness She is known with CA breast and has had chemotherapy. Recently she also had white cell infusion supposedly. At home her medication included lisinopril hydrochlorothiazide which should been taking for some time. She is also known with diabetes for about 12 years. Past Medical History Past Medical History: Cancer, Diabetes Mellitus, GERD/Reflux, Hyperlipidemia, Hypertension, Liver Disease, Renal Disease Additional Past Medical History / Comment(s): Current left breast cancer. Fatty Liver. "Kidney function not good". History of Any Multi-Drug Resistant Organisms: None Reported Past Surgical History: Cholecystectomy, Heart Catheterization, Hysterectomy, Joint Replacement, Tubal Ligation Additional Past Surgical History / Comment(s): Right total knee replacement, bilateral knee arthroscopy, bilateral cataracts removed. Past Anesthesia/Blood Transfusion Reactions: Previous Problems w/ Anesthesia Additional Past Anesthesia/Blood Transfusion Reaction / Comment(s): "Comes out of anesthesia slowly." Past Psychological History: Anxiety, Depression Smoking Status: Never smoker Past Alcohol Use History: None Reported Past Drug Use History: None Reported - Past Family History Mother Family Medical History: Cancer Additional Family Medical History / Comment(s): Cervical or ovarain cancer. Brother(s) Family Medical History: Cancer Additional Family Medical History / Comment(s): Pancreatic Cancer. Medications and Allergies Home Medications Medication Instructions Recorded Confirmed Type ALPRAZolam [Xanax] 0.5 mg PO TID PRN 08/19/20 11/21/20 History Aspirin 81 mg PO DAILY 08/19/20 11/21/20 History Lisinopril-Hctz 20-12.5 mg 1 tab PO QAM 08/19/20 11/21/20 History [Zestoretic 20-12.5] Lovastatin [Mevacor] 40 mg PO HS 08/19/20 11/21/20 History Magnesium Oxide 400 mg PO TID 08/19/20 11/21/20 History Metoprolol Tartrate [Lopressor] 25 mg PO BID 08/19/20 11/21/20 History Omeprazole 20 mg PO QAM 08/19/20 11/21/20 History ursodioL [Ursodiol] 600 mg PO BID 08/19/20 11/21/20 History Insulin Glargine [Lantus] 15 unit SQ HS 09/07/20 11/21/20 History Psyllium Husk [Metamucil] 0.4 gm PO DAILY 09/07/20 11/21/20 History metFORMIN HCL [Glucophage] 1,000 mg PO BID 09/07/20 11/21/20 History Glimepiride [Amaryl] 4 mg PO BID 11/12/20 11/21/20 History Dexamethasone [Decadron] 4 mg PO DIRECTED 11/21/20 11/21/20 History Lutein 20 mg PO DAILY 11/21/20 11/21/20 History OLANZapine [ZyPREXA] 5 mg PO DAILY PRN 11/21/20 11/21/20 History Ondansetron [Zofran] 4 - 8 mg PO Q8H PRN 11/21/20 11/21/20 History Kpl-Hrav-Ueplv Acid 2 cap PO DAILY 11/21/20 11/21/20 History [-U Capsule (formulary)] traMADol HCL 50 - 100 mg PO Q6H PRN 11/21/20 11/21/20 History ursodioL [Ursodiol] 300 mg PO DAILY@1200 11/21/20 11/21/20 History Allergies Allergy/AdvReac Type Severity Reaction Status Date / Time hydralazine [From Apresoline] AdvReac Rapid Verified 11/21/20 09:08 Heart Rate Paper Tape Allergy Severe Rash/Hives Uncoded 11/21/20 08:18 surgical glue Allergy Severe Rash/Hives Uncoded 11/21/20 08:18 Physical Exam Vitals: Vital Signs Temp Pulse Resp BP Pulse Ox 11/21/20 10:00 76 17 102/63 100 11/21/20 08:15 98.4 F 89 16 115/76 100 Intake and Output 11/20/20 11/21/20 11/21/20 22:59 06:59 14:59 Other: Weight 97.522 kg She is awake alert oriented comfortable HEENT exam no JVP neck is supple no facial asymmetry Lungs are clear to auscultation good air entry bilaterally Heart sounds are unremarkable for any murmur rub gallop Abdomen soft nontender Extremity exam was no edema Neurologically awake alert oriented comfortable Results - Lab Results Most recent lab results Calcium 9.1 mg/dL (8.4-10.2) 11/21/20 08:39 Magnesium 0.9 mg/dL (1.6-2.3) L* 11/21/20 08:39 11/21/20 08:39 11/21/20 08:39 Assessment and Plan Assessment: Impression 1. Severe hyponatremia with sodium of 117 seconds to volume depletion from nausea reduce intake excessive water intake and diarrhea 2. Metabolic acidosis secondary to acute kidney injury and diarrhea 3. Hypomagnesemia secondary to possibly chemotherapy-induced and also diarrhea induced 4. Chronic kidney disease Baseline creatinine 1.2 on 06/08/2020. Admission 1. Agree with IV saline. 2. Ensure slow correction of sodium at about 8-10 mg for the 24 hours. We will check labs in about 4-6 hours 3. Magnesium sulfate 4 g IV over 6 hours 4. Sodium bicarbonate 650 4 times a day Thank you for this consultation and we'll continue to follow closely
--- NOTE | 2020-11-21 14:28 | P.CONS ---
History of Present Illness - Reason for Consult Consult date: 11/21/20 Hyponatremia Requesting physician: Modesta Paul - Chief Complaint Dehydration, Diarrhea, Dysuria - History of Present Illness Mrs. Andres is a 65 year old patient of Dr. Zepeda'kathleen for her treatment of Breast Cancer. She originally presented in May of 2020 after routine mamogram revealed 12mm upper outer quadrant suspicious density in her Left Breast. Ultrasound confirmation. Ultrasound Guided Biopsy performed on 08/26/2020 revealed grade 2 invasive Ductal Carcinoma, Grade II DCIS, ER/TN Positive 90%/70% and HER2/Cira IHC Negative 0. General Surgery evaluated patient and Dr. Carlin performed a left partial mastectomy on 09/09/2020, final pathology revealed 13mm Grade II Invasive Ductal Carcinoma with Positive Superior Margins, Grade II DCIS with Negative Margins, [place] Lymph Node Biopsy 0 of 3 Negative for metastatic disease. She underwent Re-excision on 09/29/2020. Negative Margins after Re-excision confirmed by path. Final Pathological Staging Group Stage Ia (T1c, N0, M0) Personal Pertinent History includes: Menarche at age [age] years old, Total Abdominal Hysterectomy at age 47years. Other Medical History: Diabetes Mellitus, Hypertension, Hyperlipidemia Pertinent Family History Includes: Brother () Pancreatic Cancer at age 47years, Two Maternal Aunts with Endometrial Cancer Social History: Lifelong Non-Smoker, Denies ETOH Oncotyping DX Score unfortunately was high at 29, therefore Adjuvant Systemic Therapy was recommended Genetic Testing through [facility] was Negative for BRCA 1 or 2, and no other pathologic variants were noted. Treatment Plan: Adjuvant Therapy with Systemic Chemotherapy TC x4, followed by Adjuvant Radiation Therapy (4weeks) with Dr. Louie. Adjuvant Chemotherapy was initiated on November 12 (Received at the outpatient [facility]) with Taxotere and Cytoxan, and Neulasta. She did not tolerate the first treatment well, she has been feeling nauseated (no vomiting), diarrhea, and having a difficult time eating and drinking. She is also concerned she may have a urinary tract infection as she has some lower pelvic pain, and dysuria. On admission, her bloodwork reveal severe dehydration evidenced with Hyponatremia 117, Hypomagnesia 0.9, Creat increased 1.5 (Baseline trend 1.0-1.3) Her Liver function is mildly increased and during review of trend appears this also baseline increase (mild baseline elevated Enzymes). Hemoglobin 10.8. WBC increased at 19.3 (Secondary to Neulasta injection received on November 13 and three days of Dexamethasone 8mg twice a day given around her first chemo treatment. Urinalysis was not incredibly impressive, will await culture. Nephrology is following and have supplemented her magnesium and working on slow correction of her hyponatremia along with the addition of sodium bicarb for acidosis. She is afebrile, Vitals are stable. Review of Systems All systems: negative Constitutional: Reports as per HPI Past Medical History Past Medical History: Cancer, Diabetes Mellitus, GERD/Reflux, Hyperlipidemia, Hypertension, Liver Disease, Renal Disease Additional Past Medical History / Comment(s): Current left breast cancer. Fatty Liver. "Kidney function not good". History of Any Multi-Drug Resistant Organisms: None Reported Past Surgical History: Cholecystectomy, Heart Catheterization, Hysterectomy, Joint Replacement, Tubal Ligation Additional Past Surgical History / Comment(s): Right total knee replacement, bilateral knee arthroscopy, bilateral cataracts removed. Past Anesthesia/Blood Transfusion Reactions: Previous Problems w/ Anesthesia Additional Past Anesthesia/Blood Transfusion Reaction / Comm: "Comes out of anesthesia slowly." Past Psychological History: Anxiety, Depression Smoking Status: Never smoker Past Alcohol Use History: None Reported Past Drug Use History: None Reported - Past Family History Mother Family Medical History: Cancer Additional Family Medical History / Comment(s): Cervical or ovarain cancer. Brother(s) Family Medical History: Cancer Additional Family Medical History / Comment(s): Pancreatic Cancer. Medications and Allergies Home Medications Medication Instructions Recorded Confirmed Type ALPRAZolam [Xanax] 0.5 mg PO TID PRN 08/19/20 11/21/20 History Aspirin 81 mg PO DAILY 08/19/20 11/21/20 History Lisinopril-Hctz 20-12.5 mg 1 tab PO QAM 08/19/20 11/21/20 History [Zestoretic 20-12.5] Lovastatin [Mevacor] 40 mg PO HS 08/19/20 11/21/20 History Magnesium Oxide 400 mg PO TID 08/19/20 11/21/20 History Metoprolol Tartrate [Lopressor] 25 mg PO BID 08/19/20 11/21/20 History Omeprazole 20 mg PO QAM 08/19/20 11/21/20 History ursodioL [Ursodiol] 600 mg PO BID 08/19/20 11/21/20 History Insulin Glargine [Lantus] 15 unit SQ HS 09/07/20 11/21/20 History Psyllium Husk [Metamucil] 0.4 gm PO DAILY 09/07/20 11/21/20 History metFORMIN HCL [Glucophage] 1,000 mg PO BID 09/07/20 11/21/20 History Glimepiride [Amaryl] 4 mg PO BID 11/12/20 11/21/20 History Dexamethasone [Decadron] 4 mg PO DIRECTED 11/21/20 11/21/20 History Lutein 20 mg PO DAILY 11/21/20 11/21/20 History OLANZapine [ZyPREXA] 5 mg PO HS 11/21/20 11/21/20 History Ondansetron [Zofran] 4 - 8 mg PO Q8H PRN 11/21/20 11/21/20 History Bka-Ygcz-Pkbkx Acid 2 cap PO DAILY 11/21/20 11/21/20 History [-U Capsule (formulary)] traMADol HCL 50 - 100 mg PO Q6H PRN 11/21/20 11/21/20 History ursodioL [Ursodiol] 300 mg PO DAILY@1200 11/21/20 11/21/20 History Allergies Allergy/AdvReac Type Severity Reaction Status Date / Time hydralazine [From Apresoline] AdvReac Rapid Verified 11/21/20 09:08 Heart Rate Paper Tape Allergy Severe Rash/Hives Uncoded 11/21/20 08:18 surgical glue Allergy Severe Rash/Hives Uncoded 11/21/20 08:18 Physical Exam Vitals: Vital Signs Temp Pulse Resp BP Pulse Ox 11/21/20 10:00 76 17 102/63 100 11/21/20 08:15 98.4 F 89 16 115/76 100 Intake and Output 11/20/20 11/21/20 11/21/20 22:59 06:59 14:59 Other: Weight 97.522 kg Results CBC & Chem 7: 11/22/20 07:18 11/22/20 07:18 Labs: Abnormal Lab Results - Last 24 Hours (Table) 11/21/20 11/21/20 11/21/20 Range/Units 08:39 08:39 08:39 WBC 19.3 H (3.8-10.6) k/uL RBC 3.61 L (3.80-5.40) m/uL Hgb 10.8 L (11.4-16.0) gm/dL Hct 31.6 L (34.0-46.0) % Neutrophils # (Manual) 15.60 H (1.3-7.7) k/uL Metamyelocytes # (Man) 0.19 H (0) k/uL Myelocytes # (Manual) 0.39 H (0) k/uL Sodium 117 L* (137-145) mmol/L Chloride 86 L (98-107) mmol/L Carbon Dioxide 18 L (22-30) mmol/L BUN 26 H (7-17) mg/dL Creatinine 1.50 H (0.52-1.04) mg/dL Glucose 236 H (74-99) mg/dL POC Glucose (mg/dL) (75-99) mg/dL Magnesium 0.9 L* (1.6-2.3) mg/dL AST 41 H (14-36) U/L ALT 40 H (4-34) U/L Total Protein 6.1 L (6.3-8.2) g/dL Albumin 3.3 L (3.5-5.0) g/dL Urine Glucose (UA) Trace H (Negative) Ur Leukocyte Esterase Trace H (Negative) Urine Bacteria Rare H (None) /hpf 11/21/20 Range/Units 12:10 WBC (3.8-10.6) k/uL RBC (3.80-5.40) m/uL Hgb (11.4-16.0) gm/dL Hct (34.0-46.0) % Neutrophils # (Manual) (1.3-7.7) k/uL Metamyelocytes # (Man) (0) k/uL Myelocytes # (Manual) (0) k/uL Sodium (137-145) mmol/L Chloride (98-107) mmol/L Carbon Dioxide (22-30) mmol/L BUN (7-17) mg/dL Creatinine (0.52-1.04) mg/dL Glucose (74-99) mg/dL POC Glucose (mg/dL) 176 H (75-99) mg/dL Magnesium (1.6-2.3) mg/dL AST (14-36) U/L ALT (4-34) U/L Total Protein (6.3-8.2) g/dL Albumin (3.5-5.0) g/dL Urine Glucose (UA) (Negative) Ur Leukocyte Esterase (Negative) Urine Bacteria (None) /hpf Assessment and Plan (1) Breast cancer, left Current Visit: Yes Status: Acute Code(s): C50.912 - MALIGNANT NEOPLASM OF UNSPECIFIED SITE OF LEFT FEMALE BREAST SNOMED Code(s): 772070824 (2) Acute renal insufficiency Current Visit: Yes Status: Acute Code(s): N28.9 - DISORDER OF KIDNEY AND URETER, UNSPECIFIED SNOMED Code(s): 319905155 (3) Diarrhea Current Visit: Yes Status: Acute Code(s): R19.7 - DIARRHEA, UNSPECIFIED SNOMED Code(s): 85933932 (4) Abnormal liver function Current Visit: Yes Status: Acute Code(s): R94.5 - ABNORMAL RESULTS OF LIVER FUNCTION STUDIES SNOMED Code(s): 14052034 (5) Leukocytosis Current Visit: Yes Status: Acute Code(s): D72.829 - ELEVATED WHITE BLOOD CELL COUNT, UNSPECIFIED SNOMED Code(s): 245266757 (6) Normocytic anemia Current Visit: Yes Status: Acute Code(s): D64.9 - ANEMIA, UNSPECIFIED SNOMED Code(s): 371091597 Plan: Assessment and Recommendations: Severe Hyponatremia: - Check Serum and Urine Osmolarity - Check Urine Sodium - Nephrology Management and Correction - Consider Adrenal insufficiency in differential with recent high dose dexamathasone - Will follow-up if persists as outpatient, as dexamethasone as a long acting medication will likely falsify this work-up at this time. Hypomagnesium: - Supplementation ordered - Secondary to dehydration, Diarrhea, and decreased PO intake - Further evaluate with Phosphorus, Vitamin D, and TSH Severe Dehydration: - Likely secondary to persistent Diarrhea and decreased PO intake - Nephrology is following Diarrhea: - Likely adverse reaction to chemotherapy - Check for infectious/inflammatory causes: Stool studies ordered - Check Pancreatic Enzymes Breast Cancer: Left Stage 1a (T1c, N0, M0) - Adjuvant Chemotherapy Cycle One (plan is four treatment cycles) completed 11/12/20 with Taxotere/Cytoxan and Neulasta - Status Post Lumpectomy and SLN in August, re-excision for Margins in September 2020 (Dr. Carlin) - Oncotype Dx Score High at 29 (Reason for need of adjuvant Chemo) Leukocytosis: - Reactive to Neulasta, Recent High dose Dexamethasone, and possible contributing infectious/inflammatory component Normocytic Anemia: - Secondary to chemotherapy - Likely contributing factors include decreased PO intake, chronic inflammation (diabetes), PLus/Minus component of CKD (unknown stage). - Check nutritional deficiencys for opportunity to provide supplementation (B12, Folate, Iron Studies) - Hemolysis evaluation Pelvic Pain/Dysuria: - Ultrasound of Abdomen and Pelvis - Urinalysis with Culture Pending. Increase Liver Function: - History of Chronic mild elevation Liver Function - Last Work-up 2015 - Will also check Liver during abdominal Ultrasound Thank you for allowing us to participate in the care of this patient, we will follow along with you Call if any Questions
[2020-11-21 14:47] LABS: Reticulocyte % 1.2 % (0.5-2.0)
[2020-11-21] MEDS: SODIUM BICARBONATE TAB 650 MG TAB PO SCH ×3 (15:06→21:17)
[2020-11-21 15:41] LABS: African American GFR (CKD) 45 (>60 ml/min/1.73 sqM); Anion Gap 10 mmol/L; Blood Urea Nitrogen 22 mg/dL (7-17); Calcium 8.5 mg/dL (8.4-10.2); Carbon Dioxide 20 mmol/L (22-30); Chloride 93 mmol/L (98-107); Glucose 180 mg/dL (74-99); LDH 575 U/L (313-618); Lipase 96 U/L (23-300); Non-African American GFR(CKD) 39 (>60 ml/min/1.73 sqM); Phosphorus 3.9 mg/dL (2.5-4.5); Potassium 3.8 mmol/L (3.5-5.1); Sodium 123 mmol/L (137-145)
[2020-11-21 16:00] LABS: Amylase <30 U/L (30-110)
[2020-11-21] MEDS ORDERED: traMADol 50 MG TAB PO PRN (16:25)
[2020-11-21] MEDS ORDERED: SODIUM CHLORIDE 0.45% 1,000 ML IV SCH (16:30)
[2020-11-21] MEDS ORDERED: ALPRAZolam 0.5 MG TAB PO PRN (16:32)
[2020-11-21] MEDS ORDERED: Magnesium Replacement Protocol 1 EACH MISC MISCELLANE PRN (16:34)
[2020-11-21] MEDS ORDERED: Potassium Replacement Protocol 1 EACH MISC MISCELLANE PRN (16:34)
[2020-11-21] MEDS ORDERED: dexAMETHasone 4 MG TAB PO SCH (16:45)
[2020-11-21] MEDS: PANTOPRAZOLE 40 MG/10 ML VIAL IVP SCH ×2 (17:21→21:26)
[2020-11-21] MEDS: IOPAMIDOL CONTRAST (ORAL USE) VIAL PO PRN ×2 (18:35→18:36)
--- NOTE | 2020-11-21 19:37 | HP ---
HISTORY AND PHYSICAL I am covering for Dr. Mor Leos. DATE OF SERVICE: 11/21/2020. CHIEF COMPLAINT: Dehydration, hyponatremia. HISTORY OF PRESENT ILLNESS: This 65-year-old woman with a past medical history of diabetes, GERD, hypertension, hyperlipidemia, liver disease, history of left breast cancer status post radiation/chemotherapy is being closely monitored. The patient is complaining of some dehydration and weakness. The patient also had some dysuria. Patient had a concern, the patient had a UTI. The patient came to [facility] and found to have sodium 117 and the patient admitted for further evaluation and treatment. There is no history of any fever, rigor or chills. No headache loss of consciousness, seizures at this time. The patient has some nausea but no vomiting is reported. Nephrology has seen the patient. Possible volume depletion also being noted hypomagnesemia is also noted, possibly secondary chemotherapy induced. The patient was also seen by Hematology/Oncology. The patient has ERPR positive and HER-2/maría 1 HC negative breast cancer. PAST MEDICAL HISTORY: Breast cancer as mentioned earlier on chemotherapy, diabetes, GERD, hypertension, hyperlipidemia, liver disease, renal disease. MEDICATIONS: Home medications are: Dexamethasone, lutein, Ultram. Zofran. Zyprexa, Glucophage, omeprazole, Lopressor, Mevacor, Zestoretic, Lantus, Amaryl, Metamucil, vitamins, magnesium oxide, aspirin, Xanax. ALLERGIES: HYDRALAZINE AND PAPER TAPE AND SURGICAL GLUE. FAMILY HISTORY: History of cervical ovarian cancer. SOCIAL HISTORY: No history of alcohol. No history of substance abuse. REVIEW OF SYSTEMS: ENT: No diminished vision. No diminished hearing. CARDIOVASCULAR: No angina. RESPIRATORY: As mentioned earlier. GI: As mentioned earlier. : As mentioned earlier. NERVOUS SYSTEM: No numbness, weakness. ALLERGY/IMMUNOLOGY: No asthma or hayfever. MUSCULOSKELETAL as mentioned earlier. HEMATOLOGY/ONCOLOGY: As mentioned earlier. CONSTITUTIONAL: As mentioned earlier ENDOCRINE: History of diabetes mellitus. No history of hypothyroidism. DERMATOLOGY: Negative. RHEUMATOLOGY: Negative. PSYCHIATRIC: As mentioned earlier. PHYSICAL EXAMINATION: Alert and oriented times three. Pulse 84, blood pressure 118/80, respirations 16, temperature 98.2, pulse ox 98% on room air. HEENT: Conjunctivae normal. NECK: No JVD. CARDIOVASCULAR: S1, S2 muffled. RESPIRATION: Breath sounds diminished in the bases. No rhonchi. No crackles. ABDOMEN: Soft. Obese. Some minimal diffuse discomfort. No mass palpable. No guarding. No rigidity. LEGS: No edema. No swelling. NERVOUS SYSTEM: Higher functions as mentioned earlier. Moves all 4 limbs. No focal motor or sensory deficits. LYMPHATICS: No lymph nodes palpable in the neck, axillae or groin. SKIN: No ulcer, no rash and no bleeding. JOINTS: No active deforming arthropathy. LABS: WBC 19.3, hemoglobin 10.8, sodium is 117 and potassium 4.4. ASSESSMENT: 1. Severe hyponatremia possibly hypovolemic secondary to dehydration and diminished p.o. intake. 2. Hypomagnesemia severe secondary to chemotherapy. 3. Increased creatinine with possibly acute renal failure with acute tubular necrosis and prerenal factors. 4. Hypochloremia. 5. Metabolic acidosis secondary to renal failure. 6. Increased WBC. 7. Anemia. 8. History of breast cancer on the left, status post radiation on chemotherapy. 9. Diabetes mellitus type 2. 10.Gastroesophageal reflux disease. 11.Hypertension. 12.Hyperlipidemia. 13.History of chronic liver disease. 14.History of cardiac catheterization. 15.Abdominal pain for evaluation. 16.Anxiety, depression. 17.FULL CODE. 18.Obesity with body mass of 32.1. RECOMMENDATIONS AND DISCUSSION: In this 65-year-old woman who presented with multiple complex medical issues, we will monitor the patient closely. Continue the current management and we will continue with IV fluids. Hyponatremia appears to be hypovolemic. Consult Nephrology and as well as Hematology/Oncology. Magnesium supplementation. Potassium supplement. Monitor potassium closely. The home medications will be ordered. I would also recommend baseline evaluation also. CT scan of the abdomen pelvis to rule out the possibility of any intraabdominal pathology as well. The urine exam currently does not show any evidence of acute UTI. The prognosis guarded. Further recommendations to follow. MMODL / IJN: [id number] / MTDD
[2020-11-21] MEDS: ursodioL 300 MG CAP PO SCH (21:17)
[2020-11-21] MEDS: GLIMEPIRIDE 4 MG TAB PO SCH (21:17)
[2020-11-21] MEDS: METOPROLOL TARTRATE 25 MG TAB PO SCH (21:17)
[2020-11-21 21:18] LABS: Glucose,Whole Blood 258 mg/dL (75-99)
[2020-11-21] MEDS: HEPARIN SODIUM,PORCINE 5,000 UNIT/ML 1 ML VIAL SQ SCH (21:18)
[2020-11-21] MEDS: INSULIN DETEMIR (LEVEMIR) 100 UNIT/ML SYR SQ SCH (21:18)
[2020-11-21] MEDS: MAGNESIUM OXIDE 400 MG TAB PO SCH (21:18)
[2020-11-21] MEDS: metFORMIN 500 MG TAB PO SCH (21:18)
[2020-11-21] MEDS: OLANZapine 5 MG TAB PO SCH (21:18)
[2020-11-21] MEDS: ATORVASTATIN 10 MG TAB PO SCH (21:18)
--- NOTE | 2020-11-21 21:35 | CT ---
EXAMINATION TYPE: CT abdomen pelvis wo con DATE OF EXAM: 11/21/2020 COMPARISON: 12/07/2015 HISTORY: Abdominal pain. History of breast cancer. CT DLP: 825.8 mGycm Automated exposure control for dose reduction was used. Images obtained from the diaphragm to the floor the pelvis with oral contrast only. FINDINGS: Lung bases are clear. There is no pleural effusion. Heart size is normal. There are clips from cholecystectomy. Liver spleen stomach pancreas appear normal. Bile ducts are not dilated. There is no adrenal mass. Kidneys have normal size. There is no evidence of a renal mass. There is so me fullness of the right renal pelvis and right ureter. I see no ureteral calculus. Bladder distends smoothly. There is no retroperitoneal adenopathy. There is no inguinal hernia. There is mild fat stranding around the mid sigmoid colon with wall thickening. There are a few sigmoi d diverticula. There is small extraluminal air bubble on the posterior aspect of the mid sigmoid colo n. Appendix is not seen. There is no sign of thickened. There is no evidence of a bowel obstruction. There is no free air. There is no ascites. Lumbar vertebra have normal alignment. Posterior elements are intact. There is no compression fractur e. The bony pelvis is intact. The hip joints are intact. IMPRESSION: There is some sigmoid diverticulosis with focal diverticulitis of the mid sigmoid colon. No abscess. Mild right-sided hydronephrosis unchanged compared to old exam. No obstructing calculus seen.
[2020-11-21 21:40] LABS: Potassium 3.8 mmol/L (3.5-5.1)
[2020-11-21] MEDS ORDERED: LOPERAMIDE 2 MG CAP PO PRN (21:41)
[2020-11-21] MEDS ORDERED: LOPERAMIDE 2 MG CAP PO STA (21:41)
[2020-11-21] MEDS ORDERED: DEXTROSE 5% IN WATER 1,000 ML IV SCH (21:45)
[2020-11-21 23:19] LABS: % Iron Saturation 23.84 (12.00-45.00); Iron 67 ug/dL (50-170); Total Iron Binding Capacity 281 ug/dL (228-460)
[2020-11-22] LABS: Ferritin 705.6 ng/mL (10.0-291.0); Folate, Serum 17.4 ng/mL
[2020-11-22 06:35] LABS: Glucose,Whole Blood 200 mg/dL (75-99)
[2020-11-22 07:56] LABS: HCT 28.6 % (34.0-46.0); HGB 9.8 gm/dL (11.4-16.0); MCH 31.1 pg (25.0-35.0); MCHC 34.2 g/dL (31.0-37.0); MCV 90.8 fL (80.0-100.0); Mean Platelet Volume 7.6; Platelet Count 203 k/uL (150-450); RBC 3.15 m/uL (3.80-5.40); RDW 12.2 % (11.5-15.5)
[2020-11-22] MEDS: metFORMIN 500 MG TAB PO SCH ×2 (07:57→20:39)
[2020-11-22] MEDS: GLIMEPIRIDE 4 MG TAB PO SCH ×2 (07:58→20:38)
[2020-11-22] MEDS: SODIUM BICARBONATE TAB 650 MG TAB PO SCH ×4 (07:58→20:40)
[2020-11-22] MEDS: VIT A,C & E-LUTEIN-MINERALS 1 EACH TAB PO SCH (07:58)
[2020-11-22] MEDS: MAGNESIUM OXIDE 400 MG TAB PO SCH ×3 (07:58→20:40)
[2020-11-22] MEDS: HEPARIN SODIUM,PORCINE 5,000 UNIT/ML 1 ML VIAL SQ SCH ×2 (07:58→20:38)
[2020-11-22] MEDS: METOPROLOL TARTRATE 25 MG TAB PO SCH ×2 (07:58→20:40)
[2020-11-22] MEDS: ursodioL 300 MG CAP PO SCH ×3 (07:59→20:41)
[2020-11-22 08:09] LABS: Magnesium 1.6 mg/dL (1.6-2.3); Phosphorus 3.8 mg/dL (2.5-4.5); Potassium 4.3 mmol/L (3.5-5.1); Total Bilirubin 0.3 mg/dL (0.2-1.3); Total Protein 5.4 g/dL (6.3-8.2)
--- NOTE | 2020-11-22 08:15 | US ---
EXAMINATION TYPE: US abd limited kidneys/bladder DATE OF EXAM: 11/22/2020 COMPARISON: CT 2020, US 2015 CLINICAL HISTORY: Assess Liver, bladder, Kidneys. EXAM MEASUREMENTS: Liver Length: 20.5 cm CBD: 0.8 cm Right Kidney: 11.9 x 5.0 x 5.8 cm Left Kidney: 10.9 x 4.9 x 4.7 cm Pancreas: visualized portions wnl, limited by overlying midline bowel gas Liver: enlarged, attenuating Gallbladder: surgically absent CBD: wnl Right Kidney: fullness of renal pelvis, cortical thinning, lobulated contour Left Kidney: fullness of renal pelvis,cortical thinning, lobulated contour Bladder: wnl Bilateral Jets Seen yes IMPRESSION: Postop changes. Possible hepatocellular disease, hepatic steatosis. There is hepatomegaly . Dilated common bile duct likely due to postcholecystectomy change. There is cortical thinning prese nt, chronic pelviectasis within the kidneys
[2020-11-22] MEDS: PRENATAL VIT-IRON-FOLIC ACID 1 EACH CAP PO SCH ×2 (08:19→08:22)
[2020-11-22] MEDS: PSYLLIUM HUSK 100% 6 GM PACKET PO SCH (08:20)
[2020-11-22] MEDS: PANTOPRAZOLE 40 MG/10 ML VIAL IVP SCH ×2 (08:21→20:41)
[2020-11-22] MEDS ORDERED: LISINOPRIL-HCTZ 20-12.5 MG 1 EACH TAB PO SCH (09:00)
[2020-11-22 10:02] LABS: Band Neutrophils % 5 %; Basophils # (M) 0.11 k/uL (0-0.2); Lymphocytes # (M) 1.47 k/uL (1.0-4.8); Metamyelocytes # (M) 0.63 k/uL (0); Metamyelocytes % 6 %; Monocytes # (M) 0.42 k/uL (0-1.0); Myelocytes # (M) 0.42 k/uL (0); Myelocytes % 4 %; Neutrophils % (M) 68 %; Nucleated Red Blood Cells 1 /100 WBC (0-0); Total Cells Counted 200; WBC 10.5 k/uL (3.8-10.6)
[2020-11-22 10:07] LABS: Poikilocytosis (M) Present
--- NOTE | 2020-11-22 10:54 | P.PN ---
Subjective Progress Note Date: 11/22/20 Principal diagnosis: This is a 65-year-old female seen in consultation because of sodium of 117 on admission, as well as acute kidney injury and chronic kidney disease. She came in because of loss of appetite and nausea diarrhea. She's been trying to drink fair amount of water She denies any headache confusion seizures syncope, does have mild dizziness She is known with CA breast and has had chemotherapy. Recently she also had white cell infusion supposedly. At home her medication included lisinopril hydrochlorothiazide which should been taking for some time. She is also known with diabetes for about 12 years. Since admission she was treated with IV saline sodium went up to 123 with 6 hours, therefore she was changed to half-normal saline and sodium went up to 127 in about 6 hours again. She was changed to D5W. This morning her sodium is 129. She's feeling fine except diarrhea. She states she had 4-5 last night. There is one episode in had bright red blood she does have hemorrhoids. Other than this back to normal good appetite Past Medical History Past Medical History: Cancer, Diabetes Mellitus, GERD/Reflux, Hyperlipidemia, Hypertension, Liver Disease, Renal Disease Additional Past Medical History / Comment(s): Current left breast cancer. Fatty Liver. "Kidney function not good". Objective - Vital Signs Vital signs: Vital Signs Temp 97.4 F L 11/22/20 07:50 Pulse 100 11/22/20 07:50 Resp 16 11/22/20 07:50 BP 123/65 11/22/20 07:50 Pulse Ox 98 11/22/20 07:50 Intake & Output 11/21/20 11/22/20 11/22/20 18:59 06:59 18:59 Intake Total 510 1760 570 Output Total 800 Balance -290 1760 570 Weight 98.7 kg 97.5 kg Intake: IV 10 1760 10 Invasive Line 1 10 Invasive Line 2 10 Magnesium Sulfate-D5w Pmx 200 1 gm In Dextrose/Water 1 100ml.bag @ 100 mls/hr IVPB ONCE ONE Rx#: [id number] Sodium Chloride 0.45% 1, 260 000 ml @ 130 mls/hr IV . Q7H42M [facility] Rx#:[id number] Sodium Chloride 0.9% 1, 1300 000 ml @ 130 mls/hr IV . Q7H42M [facility] Rx#:[id number] Oral 500 0 560 Output: Urine 800 Other: Voiding Method Toilet Toilet # Voids 1 2 # Bowel Movements 1 1 On examination awake alert oriented comfortable HEENT exam no JVP neck is supple no facial asymmetry Lungs clear to auscultation good air entry bilaterally Heart sounds unremarkable for any murmur rub gallop Abdomen soft nontender Extremity exam was no edema Neurologically awake alert oriented comfortable. - Labs CBC & Chem 7: 11/22/20 07:18 11/22/20 07:18 Labs: Abnormal Lab Results - Last 24 Hours (Table) 11/21/20 11/21/20 11/21/20 Range/Units 12:10 14:15 20:27 RBC (3.80-5.40) m/uL Hgb (11.4-16.0) gm/dL Hct (34.0-46.0) % Metamyelocytes # (Man) (0) k/uL Myelocytes # (Manual) (0) k/uL Nucleated RBCs (0-0) /100 WBC Sodium 123 L 127 L (137-145) mmol/L Chloride 93 L 95 L (98-107) mmol/L Carbon Dioxide 20 L 20 L (22-30) mmol/L BUN 22 H 21 H (7-17) mg/dL Creatinine 1.43 H 1.64 H (0.52-1.04) mg/dL Glucose 180 H 243 H (74-99) mg/dL POC Glucose (mg/dL) 176 H (75-99) mg/dL Osmolality 266 L (280-301) mosm/kg Ferritin 705.6 H (10.0-291.0) ng/mL ALT (4-34) U/L Total Protein (6.3-8.2) g/dL Albumin (3.5-5.0) g/dL Amylase <30 L (30-110) U/L Vitamin D 25-Hydroxy 24.6 L (30.0-100.0) ng/mL 11/21/20 11/22/20 11/22/20 Range/Units 21:16 06:09 07:18 RBC (3.80-5.40) m/uL Hgb (11.4-16.0) gm/dL Hct (34.0-46.0) % Metamyelocytes # (Man) (0) k/uL Myelocytes # (Manual) (0) k/uL Nucleated RBCs (0-0) /100 WBC Sodium 129 L (137-145) mmol/L Chloride (98-107) mmol/L Carbon Dioxide 21 L (22-30) mmol/L BUN 20 H (7-17) mg/dL Creatinine 1.52 H (0.52-1.04) mg/dL Glucose 253 H (74-99) mg/dL POC Glucose (mg/dL) 258 H 200 H (75-99) mg/dL Osmolality (280-301) mosm/kg Ferritin (10.0-291.0) ng/mL ALT 35 H (4-34) U/L Total Protein 5.4 L (6.3-8.2) g/dL Albumin 3.0 L (3.5-5.0) g/dL Amylase (30-110) U/L Vitamin D 25-Hydroxy (30.0-100.0) ng/mL 11/22/20 Range/Units 07:18 RBC 3.15 L (3.80-5.40) m/uL Hgb 9.8 L (11.4-16.0) gm/dL Hct 28.6 L (34.0-46.0) % Metamyelocytes # (Man) 0.63 H (0) k/uL Myelocytes # (Manual) 0.42 H (0) k/uL Nucleated RBCs 1 H (0-0) /100 WBC Sodium (137-145) mmol/L Chloride (98-107) mmol/L Carbon Dioxide (22-30) mmol/L BUN (7-17) mg/dL Creatinine (0.52-1.04) mg/dL Glucose (74-99) mg/dL POC Glucose (mg/dL) (75-99) mg/dL Osmolality (280-301) mosm/kg Ferritin (10.0-291.0) ng/mL ALT (4-34) U/L Total Protein (6.3-8.2) g/dL Albumin (3.5-5.0) g/dL Amylase (30-110) U/L Vitamin D 25-Hydroxy (30.0-100.0) ng/mL Microbiology - Last 24 Hours (Table) 11/21/20 17:00 Stool Culture - Preliminary Stool Assessment and Plan Assessment: Impression 1. Severe hyponatremia with sodium of 117 secondary to volume depletion from n ausea reduce intake excessive water intake and diarrhea. Sodium improved to 129 with IV fluids. Initially with normal saline and then changed to half-normal and tendency to D5W. Head continues to have has a lot of diarrhea 2. Acute kidney injury secondary to dehydration 3. Metabolic acidosis secondary to acute kidney injury and diarrhea 3. Hypomagnesemia secondary to possibly chemotherapy-induced and also diarrhea induced 4. Chronic kidney disease Baseline creatinine 1.2 on 06/08/2020. 5. One episode of rectal bleed. 6. Ongoing diarrhea. Admission 1. Resume half-normal saline because of the diarrhea . 2. Workup for GI bleeding diarrhea 3. Continue sodium bicarb 4. Congestive monitor labs including magnesium electrolytes
[2020-11-22] MEDS: SODIUM CHLORIDE 0.45% 1,000 ML IV SCH (11:37)
[2020-11-22 11:46] LABS: Glucose,Whole Blood 228 mg/dL (75-99)
[2020-11-22] MEDS: INSULIN ASPART (NovoLOG) 100 UNIT/ML VIAL SQ SCH ×3 (13:13→20:39)
[2020-11-22] MEDS: MAGNESIUM SULFATE-D5W PMX 1 GM in DEXTROSE/WATER 1 100ML.BAG IVPB SCH ×2 (14:56→15:56)
--- NOTE | 2020-11-22 16:54 | PN ---
PROGRESS NOTE I am covering for Dr. Mor Leos. DATE OF SERVICE: 11/22/2020 This 65-year-old woman is admitted with severe dehydration, hyponatremia, also had hypomagnesemia. Patient had recent chemotherapy. Chemotherapy associated issues are noted. Nephrology has seen the patient. After IV fluids, sodium is improving at this time. The ultrasound showed postoperative changes and possible hepatocellular disease, hepatic steatosis and hepatomegaly, dilated common bile duct was also noted. Abdomen and pelvis CAT scan was noted. Shows sigmoid diverticulosis with focal diverticulitis. There was some edema at the mid sigmoid colon was noted. No abscess noted. Mild right- sided hydronephrosis was also noted which is unchanged. Past medical history reviewed. REVIEW OF SYSTEMS: CARDIOVASCULAR: No angina. RESPIRATION: As mentioned earlier. GI as mentioned earlier. : As mentioned earlier. NERVOUS SYSTEM: No numbness or weakness. CURRENT MEDICATIONS: Reviewed and include: Tylenol, Xanax, Lipitor, Zestoretic, heparin, NovoLog, Levemir, Imodium, magnesium oxide, metoprolol, Lopressor, Protonix, psyllium. Doses reviewed. PHYSICAL EXAMINATION: Alert and oriented times three. Pulse 85, blood pressure 127/69, respirations 16, temperature 97.6, pulse ox 100 percent on room air. HEENT: Conjunctivae normal. NECK: No JVD. CARDIOVASCULAR: S1, S2. RESPIRATIONS: Breath sounds diminished in the bases. No rhonchi. No crackles. ABDOMEN: Soft, nontender. No mass palpable. LEGS are no edema. No swelling. NERVOUS SYSTEM: No focal deficits. LABS: Hemoglobin 9.8 and sodium is 129, potassium 4.3. Creatinine is 1.52. ASSESSMENT: 1. Severe hyponatremia possibly hypovolemic secondary to dehydration, diminished p.o. intake. 2. Hypomagnesemia secondary to chemotherapy, possibly. 3. Increased creatinine with possible acute tubular necrosis, acute renal failure with prerenal factors. 4. Possible mild right-sided hydronephrosis unchanged in the CT scan. 5. Some focal diverticulitis in the mid sigmoid colon in the CT scan. 6. Hypochloremia. 7. Metabolic acidosis secondary to renal failure. 8. Increased WBC. 9. Anemia. 10.History of breast cancer on the left, status post radiation chemotherapy. 11.Diabetes mellitus type 2. 12.Gastroesophageal reflux disease. 13.Hypertension. 14.Hyperlipidemia. 15.History of chronic liver disease. 16.History of cardiac catheterization. 17.History of abdominal pain for evaluation. 18.Anxiety, depression. 19.Obesity with body mass of 32.1. 20.FULL CODE. RECOMMENDATIONS AND DISCUSSION: I recommend to continue current medications, management and symptomatic treatment. I would also recommend a short course of IV antibiotics as well for the diverticulitis. Otherwise, continue to monitor the sodium. Monitor blood sugars closely. Prognosis guarded because of multiple complex medical issues and Dr. Leos will follow tomorrow. Follow closely with Hematology/Oncology and also recommend periodic repeat labs in the outpatient setting. MMODL / IJN: [id number] /
[2020-11-22 16:59] LABS: Glucose,Whole Blood 172 mg/dL (75-99)
[2020-11-22] MEDS: PIPERACILLIN-TAZOBACTAM 3.375 GM in SODIUM CHLORIDE 0.9% 100 ML IVPB SCH ×2 (17:06→23:18)
--- NOTE | 2020-11-22 17:40 | P.PN ---
Subjective Progress Note Date: 11/22/20 Principal diagnosis: Hyponatremia Dehydration Feeling better today. SOdium improving, Creatinine remains mildly increased CT of abdomen and pelvis reviewed. She is up in a shower today and feeling better. Objective - Vital Signs Vital signs: Vital Signs Temp 97.4 F L 11/22/20 07:50 Pulse 100 11/22/20 07:50 Resp 16 11/22/20 07:50 BP 123/65 11/22/20 07:50 Pulse Ox 98 11/22/20 07:50 Intake & Output 11/21/20 11/22/20 11/22/20 18:59 06:59 18:59 Intake Total 510 1760 270 Output Total 800 Balance -290 1760 270 Weight 98.7 kg 97.5 kg Intake: IV 10 1760 10 Invasive Line 1 10 Invasive Line 2 10 Magnesium Sulfate-D5w Pmx 200 1 gm In Dextrose/Water 1 100ml.bag @ 100 mls/hr IVPB ONCE ONE Rx#: [id number] Sodium Chloride 0.45% 1, 260 000 ml @ 130 mls/hr IV . Q7H42M [facility] Rx#:[id number] Sodium Chloride 0.9% 1, 1300 000 ml @ 130 mls/hr IV . Q7H42M [facility] Rx#:[id number] Oral 500 0 260 Output: Urine 800 Other: Voiding Method Toilet Toilet # Voids 1 2 # Bowel Movements 1 1 - Exam Alert and Oriented NAD NEck Supple Pale No Rash Lungs: CTA no increased effort Heart: Tachy Ext: No edema - Labs CBC & Chem 7: 11/22/20 07:18 11/22/20 07:18 Labs: Abnormal Lab Results - Last 24 Hours (Table) 11/21/20 11/21/20 11/21/20 Range/Units 12:10 14:15 20:27 RBC (3.80-5.40) m/uL Hgb (11.4-16.0) gm/dL Hct (34.0-46.0) % Sodium 123 L 127 L (137-145) mmol/L Chloride 93 L 95 L (98-107) mmol/L Carbon Dioxide 20 L 20 L (22-30) mmol/L BUN 22 H 21 H (7-17) mg/dL Creatinine 1.43 H 1.64 H (0.52-1.04) mg/dL Glucose 180 H 243 H (74-99) mg/dL POC Glucose (mg/dL) 176 H (75-99) mg/dL Osmolality 266 L (280-301) mosm/kg Ferritin 705.6 H (10.0-291.0) ng/mL ALT (4-34) U/L Total Protein (6.3-8.2) g/dL Albumin (3.5-5.0) g/dL Amylase <30 L (30-110) U/L Vitamin D 25-Hydroxy 24.6 L (30.0-100.0) ng/mL 11/21/20 11/22/20 11/22/20 Range/Units 21:16 06:09 07:18 RBC (3.80-5.40) m/uL Hgb (11.4-16.0) gm/dL Hct (34.0-46.0) % Sodium 129 L (137-145) mmol/L Chloride (98-107) mmol/L Carbon Dioxide 21 L (22-30) mmol/L BUN 20 H (7-17) mg/dL Creatinine 1.52 H (0.52-1.04) mg/dL Glucose 253 H (74-99) mg/dL POC Glucose (mg/dL) 258 H 200 H (75-99) mg/dL Osmolality (280-301) mosm/kg Ferritin (10.0-291.0) ng/mL ALT 35 H (4-34) U/L Total Protein 5.4 L (6.3-8.2) g/dL Albumin 3.0 L (3.5-5.0) g/dL Amylase (30-110) U/L Vitamin D 25-Hydroxy (30.0-100.0) ng/mL 11/22/20 Range/Units 07:18 RBC 3.15 L (3.80-5.40) m/uL Hgb 9.8 L (11.4-16.0) gm/dL Hct 28.6 L (34.0-46.0) % Sodium (137-145) mmol/L Chloride (98-107) mmol/L Carbon Dioxide (22-30) mmol/L BUN (7-17) mg/dL Creatinine (0.52-1.04) mg/dL Glucose (74-99) mg/dL POC Glucose (mg/dL) (75-99) mg/dL Osmolality (280-301) mosm/kg Ferritin (10.0-291.0) ng/mL ALT (4-34) U/L Total Protein (6.3-8.2) g/dL Albumin (3.5-5.0) g/dL Amylase (30-110) U/L Vitamin D 25-Hydroxy (30.0-100.0) ng/mL Microbiology - Last 24 Hours (Table) 11/21/20 17:00 Stool Culture - Preliminary Stool Assessment and Plan (1) Breast cancer, left Current Visit: Yes Status: Acute Code(s): C50.912 - MALIGNANT NEOPLASM OF UNSPECIFIED SITE OF LEFT FEMALE BREAST SNOMED Code(s): 973419006 (2) Acute renal insufficiency Current Visit: Yes Status: Acute Code(s): N28.9 - DISORDER OF KIDNEY AND URETER, UNSPECIFIED SNOMED Code(s): 647542074 (3) Diarrhea Current Visit: Yes Status: Acute Code(s): R19.7 - DIARRHEA, UNSPECIFIED SNOMED Code(s): 70317226 (4) Abnormal liver function Current Visit: Yes Status: Acute Code(s): R94.5 - ABNORMAL RESULTS OF LIVER FUNCTION STUDIES SNOMED Code(s): 59644436 (5) Leukocytosis Current Visit: Yes Status: Acute Code(s): D72.829 - ELEVATED WHITE BLOOD CELL COUNT, UNSPECIFIED SNOMED Code(s): 896884603 (6) Normocytic anemia Current Visit: Yes Status: Acute Code(s): D64.9 - ANEMIA, UNSPECIFIED SN OMED Code(s): 272963993 Plan: Assessment and Recommendations: Severe Hyponatremia: - Check Serum and Urine Osmolarity - Check Urine Sodium - Nephrology Management and Correction - Consider Adrenal insufficiency in differential with recent high dose dex amathasone - Will follow-up if persists as outpatient, as dexamethasone as a long acting medication will likely falsify this work-up at this time. Hypomagnesium: - Supplementation ordered - Secondary to dehydration, Diarrhea, and decreased PO intake - Further evaluate with Phosphorus, Vitamin D, and TSH Severe Dehydration: - Likely secondary to persistent Diarrhea and decreased PO intake - Nephrology is following Diarrhea: - Likely adverse reaction to chemotherapy - Check for infectious/inflammatory causes: Stool studies ordered - Check Pancreatic Enzymes Breast Cancer: Left Stage 1a (T1c, N0, M0) - Adjuvant Chemotherapy Cycle One (plan is four treatment cycles) completed 11/12/20 with Taxotere/Cytoxan and Neulasta - Status Post Lumpectomy and SLN in August, re-excision for Margins in September 2020 (Dr. Carlin) - Oncotype Dx Score High at 29 (Reason for need of adjuvant Chemo) Leukocytosis: - Reactive to Neulasta, Recent High dose Dexamethasone, and possible contr ibuting infectious/inflammatory component Normocytic Anemia: - Secondary to chemotherapy - Likely contributing factors include decreased PO intake, chronic inflammation (diabetes), PLus/Minus component of CKD (unknown stage). Pelvic Pain/Dysuria: - Ultrasound of Abdomen and Pelvis - Urinalysis with Culture Pending. Increase Liver Function: - History of Chronic mild elevation Liver Function - Last Work-up 2015 - Will also check Liver during abdominal Ultrasound Diabete Mellitus: - Sugars have not been controlled PLan: - Re-examine supportive medications prior to next treatment, balancing dexamethasone and glucose levels along with remaining hydrated. - Will have her follow-up prior to next treatment
[2020-11-22 20:29] LABS: Glucose,Whole Blood 268 mg/dL (75-99)
[2020-11-22] MEDS: ATORVASTATIN 10 MG TAB PO SCH (20:38)
[2020-11-22] MEDS: INSULIN DETEMIR (LEVEMIR) 100 UNIT/ML SYR SQ SCH (20:39)
[2020-11-22] MEDS: OLANZapine 5 MG TAB PO SCH (20:40)
[2020-11-23] MEDS: SODIUM CHLORIDE 0.45% 1,000 ML IV SCH ×2 (00:19→18:08)
[2020-11-23 06:21] LABS: Glucose,Whole Blood 139 mg/dL (75-99)
[2020-11-23] MEDS: INSULIN ASPART (NovoLOG) 100 UNIT/ML VIAL SQ SCH ×4 (06:21→20:49)
[2020-11-23 08:00] LABS: HCT 28.7 % (34.0-46.0); HGB 9.6 gm/dL (11.4-16.0); MCH 30.4 pg (25.0-35.0); MCHC 33.4 g/dL (31.0-37.0); Mean Platelet Volume 7.7; Platelet Count 214 k/uL (150-450); RBC 3.15 m/uL (3.80-5.40); RDW 12.7 % (11.5-15.5)
[2020-11-23 08:18] LABS: Magnesium 1.6 mg/dL (1.6-2.3); Potassium 5.2 mmol/L (3.5-5.1)
--- NOTE | 2020-11-23 09:03 | P.PN ---
Subjective Patient is seen in follow-up for hyponatremia. Sodium level 134 this morning. Oral intake fair. No chest pain or shortness of breath. Maintained on half normal saline. Blood pressure on the lower side. Vital signs are stable. General: The patient appeared well nourished and normally developed. HEENT: Head exam is unremarkable. Neck is without jugular venous distension. LUNGS: Breath sounds decreased. HEART: Rate and Rhythm are regular. ABDOMEN: Soft, nontender. EXTREMITITES: No edema. Objective - Vital Signs Vital signs: Vital Signs Temp 98 F 11/23/20 03:25 Pulse 75 11/23/20 03:25 Resp 17 11/23/20 03:25 BP 98/50 11/23/20 03:25 Pulse Ox 97 11/23/20 03:25 Intake & Output 11/22/20 11/23/20 11/23/20 18:59 06:59 18:59 Intake Total 880 Balance 880 Weight 97.1 kg Intake: IV 20 Invasive Line 2 20 Oral 860 Other: Voiding Method Toilet # Voids 1 - Labs CBC & Chem 7: 11/23/20 07:01 11/23/20 07:01 Labs: Abnormal Lab Results - Last 24 Hours (Table) 11/21/20 11/22/20 11/22/20 Range/Units 17:00 07:18 11:45 RBC (3.80-5.40) m/uL Hgb (11.4-16.0) gm/dL Hct (34.0-46.0) % Metamyelocytes # (Man) 0.63 H (0) k/uL Myelocytes # (Manual) 0.42 H (0) k/uL Nucleated RBCs 1 H (0-0) /100 WBC Sodium (137-145) mmol/L Potassium (3.5-5.1) mmol/L Creatinine (0.52-1.04) mg/dL Glucose (74-99) mg/dL POC Glucose (mg/dL) 228 H (75-99) mg/dL Stool Lactoferrin POSITIVE A (NEGATIVE) 11/22/20 11/22/20 11/23/20 Range/Units 16:57 20:21 06:19 RBC (3.80-5.40) m/uL Hgb (11.4-16.0) gm/dL Hct (34.0-46.0) % Metamyelocytes # (Man) (0) k/uL Myelocytes # (Manual) (0) k/uL Nucleated RBCs (0-0) /100 WBC Sodium (137-145) mmol/L Potassium (3.5-5.1) mmol/L Creatinine (0.52-1.04) mg/dL Glucose (74-99) mg/dL POC Glucose (mg/dL) 172 H 268 H 139 H (75-99) mg/dL Stool Lactoferrin (NEGATIVE) 11/23/20 11/23/20 Range/Units 07:01 07:01 RBC 3.15 L (3.80-5.40) m/uL Hgb 9.6 L (11.4-16.0) gm/dL Hct 28.7 L (34.0-46.0) % Metamyelocytes # (Man) (0) k/uL Myelocytes # (Manual) (0) k/uL Nucleated RBCs (0-0) /100 WBC Sodium 134 L (137-145) mmol/L Potassium 5.2 H (3.5-5.1) mmol/L Creatinine 1.39 H (0.52-1.04) mg/dL Glucose 143 H (74-99) mg/dL POC Glucose (mg/dL) (75-99) mg/dL Stool Lactoferrin (NEGATIVE) Microbiology - Last 24 Hours (Table) 11/21/20 10:11 Blood Culture - Preliminary Blood No Growth after 24 hours Assessment and Plan Plan: Assessment: 1. Hypovolemic hyponatremia secondary to poor intake and diarrhea and excessive water intake. Was also on hydrochlorothiazide. Better. 2. Chronic kidney disease stage IIIa with baseline creatinine near 1.2. 3. Acute kidney injury mostly prerenal secondary to hypovolemia improved with IV hydration. Creatinine 1.39 today. No proteinuria. 4. Hypomagnesemia for midodrine thiazide and GI losses. 5. Metabolic acidosis secondary to acute kidney injury and GI losses. Better. Maintained on oral bicarbonate. 6. Hypertension with chronic kidney disease. Blood pressure in the lower side. 7. Diabetes mellitus. Plan: Maintain half-normal saline. Encouraged oral intake. Replace magnesium. 2 g IV today. Stop lisinoprilHctz. Repeat electrolytes in the morning.
[2020-11-23] MEDS: PIPERACILLIN-TAZOBACTAM 3.375 GM in SODIUM CHLORIDE 0.9% 100 ML IVPB SCH ×3 (09:32→23:25)
[2020-11-23] MEDS: PANTOPRAZOLE 40 MG/10 ML VIAL IVP SCH (09:33)
[2020-11-23] MEDS: HEPARIN SODIUM,PORCINE 5,000 UNIT/ML 1 ML VIAL SQ SCH ×2 (09:33→20:49)
[2020-11-23] MEDS: PSYLLIUM HUSK 100% 6 GM PACKET PO SCH (09:33)
[2020-11-23] MEDS: MAGNESIUM SULFATE-D5W PMX 1 GM in DEXTROSE/WATER 1 100ML.BAG IVPB SCH ×2 (09:33→11:22)
[2020-11-23] MEDS: METOPROLOL TARTRATE 25 MG TAB PO SCH ×2 (09:34→20:50)
[2020-11-23] MEDS: SODIUM BICARBONATE TAB 650 MG TAB PO SCH ×4 (09:34→20:51)
[2020-11-23] MEDS: metFORMIN 500 MG TAB PO SCH ×2 (09:34→20:50)
[2020-11-23] MEDS: MAGNESIUM OXIDE 400 MG TAB PO SCH ×3 (09:34→20:51)
[2020-11-23] MEDS: GLIMEPIRIDE 4 MG TAB PO SCH ×2 (09:34→20:49)
[2020-11-23] MEDS: PRENATAL VIT-IRON-FOLIC ACID 1 EACH CAP PO SCH (09:35)
[2020-11-23] MEDS: ursodioL 300 MG CAP PO SCH ×3 (09:35→20:51)
[2020-11-23 10:06] LABS: Band Neutrophils % 8 %; Metamyelocytes % 8 %; Myelocytes # (M) 0.34 k/uL (0); Myelocytes % 4 %; Neutrophils % (M) 58 %; Nucleated Red Blood Cells 2 /100 WBC (0-0); Total Cells Counted 200
[2020-11-23 10:07] LABS: Basophils # (M) 0.08 k/uL (0-0.2); Lymphocytes # (M) 1.51 k/uL (1.0-4.8); Metamyelocytes # (M) 0.67 k/uL (0); Monocytes # (M) 0.42 k/uL (0-1.0); WBC 8.4 k/uL (3.8-10.6)
[2020-11-23] MEDS ORDERED: SALINE NASAL GEL 14.1 GM TUBE TOPICAL PRN (11:13)
[2020-11-23 11:37] LABS: Glucose,Whole Blood 228 mg/dL (75-99)
--- NOTE | 2020-11-23 13:21 | P.PN ---
Subjective Progress Note Date: 11/23/20 This is 65-year-old female admitted with severe dehydration, renal failure, hyponatremia, hypomagnesemia secondary to recent chemotherapy. CT reported some sigmoid diverticulosis with focal diverticulitis of the mid sigmoid colon, no abscess, mild right-sided hydronephrosis unchanged, compared to prior with no obstructing calculus. Ultrasound reported possible hepatocellular disease, hepatic steatosis, hepatomegaly, dilated common bile duct, cortical thinning, chronic pelvictasis within the kidneys. Maintained on Zosyn. Continues on half normal saline with sodium 134. Potassium 5.2, magnesium 1.6. Complains of diarrhea, abdominal cramping. Mild hypotension during sleep, currently systolic blood pressure up into the 130s. Diet intake improved, blood sugars uncontrolled. Objective - Vital Signs Vital signs: Vital Signs Temp 96.4 F L 11/23/20 08:00 Pulse 91 11/23/20 08:00 Resp 17 11/23/20 03:25 BP 131/67 11/23/20 08:00 Pulse Ox 92 L 11/23/20 08:00 Intake & Output 11/22/20 11/23/20 11/23/20 18:59 06:59 18:59 Intake Total 880 670 Balance 880 670 Weight 97.1 kg Intake: IV 20 Invasive Line 2 20 Intake, IV Titration 250 Amount Magnesium Sulfate-D5w Pmx 100 1 gm In Dextrose/Water 1 100ml.bag @ 100 mls/hr IVPB Q1H [facility] Rx#: [id number] Sodium Chloride 0.45% 1, 150 000 ml @ 75 mls/hr IV . [id number] [facility] Rx#:[id number] Oral 860 420 Other: Voiding Method Toilet Toilet # Voids 1 - Exam PHYSICAL EXAM: VITAL SIGNS: As above GENERAL: Sitting up in chair, no acute distress HEENT: Conjunctivae normal. eyes normal. Oral mucosa moist. NECK: No JVD. No thyroid enlargement. CARDIOVASCULAR: S1, S2 regular. No murmur RESPIRATION: Breath sounds diminished in the bases. No rhonchi or crackles. No wheezing ABDOMEN: Soft, nontender . No guarding. no masses palpable. Positive Bowel sounds heard. LEGS: No edema. no swelling PSYCHIATRY: Alert and oriented X3, mood and affect normal. NERVOUS SYSTEM: Cranial N 2-12 grossly normal. Moves all 4 limbs. No focal deficits. Strength and sensation grossly intact.. Skin: Warm and dry, no rash - Labs CBC & Chem 7: 11/23/20 07:01 11/23/20 07:01 Labs: Abnormal Lab Results - Last 24 Hours (Table) 11/22/20 11/22/20 11/23/20 Range/Units 16:57 20:21 06:19 RBC (3.80-5.40) m/uL Hgb (11.4-16.0) gm/dL Hct (34.0-46.0) % Metamyelocytes # (Man) (0) k/uL Myelocytes # (Manual) (0) k/uL Nucleated RBCs (0-0) /100 WBC Sodium (137-145) mmol/L Potassium (3.5-5.1) mmol/L Creatinine (0.52-1.04) mg/dL Glucose (74-99) mg/dL POC Glucose (mg/dL) 172 H 268 H 139 H (75-99) mg/dL 11/23/20 11/23/20 11/23/20 Range/Units 07:01 07:01 11:35 RBC 3.15 L (3.80-5.40) m/uL Hgb 9.6 L (11.4-16.0) gm/dL Hct 28.7 L (34.0-46.0) % Metamyelocytes # (Man) 0.67 H (0) k/uL Myelocytes # (Manual) 0.34 H (0) k/uL Nucleated RBCs 2 H (0-0) /100 WBC Sodium 134 L (137-145) mmol/L Potassium 5.2 H (3.5-5.1) mmol/L Creatinine 1.39 H (0.52-1.04) mg/dL Glucose 143 H (74-99) mg/dL POC Glucose (mg/dL) 228 H (75-99) mg/dL Microbiology - Last 24 Hours (Table) 11/21/20 10:11 Blood Culture - Preliminary Blood No Growth after 48 hours Assessment and Plan Assessment: Hyponatremia, hypovolemic secondary to dehydration related to diarrhea, decreased oral intake,excessive water intake, med induced with hydrochlorothi azide discontinued Acute renal failure secondary to the above, prerenal,improving with IV fluid hydration. Diarrhea suspect secondary to chemotherapy. Chronic kidney disease, stage IIIa Metabolic acidosis secondary to renal failure Hypomagnesemia Leukocytosis secondary to Neulasta, recently on high-dose steroids, resolved. Left Breast CA, status post radiation chemotherapy Diabetes mellitus type 2 Possible mild right-sided hydronephrosis unchanged per CT Some focal diverticulitis in the big sigmoid colon per CT, Gastroesophageal reflux disease Hypertension Hyperlipidemia Chronic liver disease Anxiety Depression Obesity, BMI 31.6 Plan: Continue on current medication regime ,monitoring and symptomatic treatment. Maintain IV fluid hydration with half-normal saline, Zosyn .Magnesium supplementation as ordered. Home medication Zestoretic(Lisinopril- HCTZ) has been dc'd. Patient reports dry nasal passages, saline nasal spray/gel ordered. Close monitoring of renal function, electrolytes with repeat labs ordered for a.m. blood sugars remain uncontrolled, dietary intake improving, Levemir dose increased. Close monitoring of Accu-Cheks. Discharge planning in progress possibly in a.m. The impression and plan of care has been dictated as directed. : I performed a history and examination of this patient, discussed the same with the dictator. I agree with the dictator's note ,documented as a scribe. Any additional findings or plans will be noted.
[2020-11-23] MEDS: VIT A,C & E-LUTEIN-MINERALS 1 EACH TAB PO SCH (13:26)
--- NOTE | 2020-11-23 14:30 | P.PN ---
Subjective Progress Note Date: 11/23/20 Principal diagnosis: Hyponatremia Dehydration Oxygen status mild decrease and increase HR today. Diarrhea improved still with abdominal pain. Electrolytes improving She is nervous to start next cycle, recommend short acting insulin for next treatment cycle with steroid use. Also she feels the metamucil worsening diarrhea,m, so switch to questran Objective - Vital Signs Vital signs: Vital Signs Temp 96.4 F L 11/23/20 08:00 Pulse 91 11/23/20 08:00 Resp 17 11/23/20 03:25 BP 131/67 11/23/20 08:00 Pulse Ox 92 L 11/23/20 08:00 Intake & Output 11/22/20 11/23/20 11/23/20 18:59 06:59 18:59 Intake Total 880 1090 Balance 880 1090 Weight 97.1 kg Intake: IV 20 Invasive Line 2 20 Intake, IV Titration 250 Amount Magnesium Sulfate-D5w Pmx 100 1 gm In Dextrose/Water 1 100ml.bag @ 100 mls/hr IVPB Q1H [facility] Rx#: [id number] Sodium Chloride 0.45% 1, 150 000 ml @ 75 mls/hr IV . [id number] [facility] Rx#:[id number] Oral 860 840 Other: Voiding Method Toilet Toilet # Voids 1 - Exam Alert and Oriented NAD NEck Supple Pale No Rash Lungs: CTA no increased effort Heart: Tachy Ext: No edema - Labs CBC & Chem 7: 11/23/20 07:01 11/23/20 07:01 Labs: Abnormal Lab Results - Last 24 Hours (Table) 11/22/20 11/22/20 11/23/20 Range/Units 16:57 20:21 06:19 RBC (3.80-5.40) m/uL Hgb (11.4-16.0) gm/dL Hct (34.0-46.0) % Metamyelocytes # (Man) (0) k/uL Myelocytes # (Manual) (0) k/uL Nucleated RBCs (0-0) /100 WBC Sodium (137-145) mmol/L Potassium (3.5-5.1) mmol/L Creatinine (0.52-1.04) mg/dL Glucose (74-99) mg/dL POC Glucose (mg/dL) 172 H 268 H 139 H (75-99) mg/dL 11/23/20 11/23/20 11/23/20 Range/Units 07:01 07:01 11:35 RBC 3.15 L (3.80-5.40) m/uL Hgb 9.6 L (11.4-16.0) gm/dL Hct 28.7 L (34.0-46.0) % Metamyelocytes # (Man) 0.67 H (0) k/uL Myelocytes # (Manual) 0.34 H (0) k/uL Nucleated RBCs 2 H (0-0) /100 WBC Sodium 134 L (137-145) mmol/L Potassium 5.2 H (3.5-5.1) mmol/L Creatinine 1.39 H (0.52-1.04) mg/dL Glucose 143 H (74-99) mg/dL POC Glucose (mg/dL) 228 H (75-99) mg/dL Microbiology - Last 24 Hours (Table) 11/21/20 10:11 Blood Culture - Preliminary Blood No Growth after 48 hours Assessment and Plan (1) Breast cancer, left Current Visit: Yes Status: Acute Code(s): C50.912 - MALIGNANT NEOPLASM OF UNSPECIFIED SITE OF LEFT FEMALE BREAST SNOMED Code(s): 514069264 (2) Acute renal insufficiency Current Visit: Yes Status: Acute Code(s): N28.9 - DISORDER OF KIDNEY AND URETER, UNSPECIFIED SNOMED Code(s): 006851745 (3) Diarrhea Current Visit: Yes Status: Acute Code(s): R19.7 - DIARRHEA, UNSPECIFIED SNOMED Code(s): 01930583 (4) Abnormal liver function Current Visit: Yes Status: Acute Code(s): R94.5 - ABNORMAL RESULTS OF LIVER FUNCTION STUDIES SNOMED Code(s): 84409732 (5) Leukocytosis Current Visit: Yes Status: Acute Code(s): D72.829 - ELEVATED WHITE BLOOD CELL COUNT, UNSPECIFIED SNOMED Code(s): 690527356 (6) Normocytic anemia Current Visit: Yes Status: Acute Code(s): D64.9 - ANEMIA, UNSPECIFIED SNOMED Code(s): 616654246 Plan: Assessment and Recommendations: Severe Hyponatremia: - Check Serum and Urine Osmolarity - Check Urine Sodium - Nephrology Management and Correction - Consider Adrenal insufficiency in differential with recent high dose dexamathasone - Will follow-up if persists as outpatient, as dexamethasone as a long acting medication will likely falsify this work-up at this time. Hypomagnesium: - Supplementation ordered - Secondary to dehydration, Diarrhea, and decreased PO intake - Further evaluate with Phosphorus, Vitamin D, and TSH Severe Dehydration: - Likely secondary to persistent Diarrhea and decreased PO intake - Nephrology is following Diarrhea: - Likely adverse reaction to chemotherapy - Check for infectious/inflammatory causes: Stool studies ordered - Check Pancreatic Enzymes Breast Cancer: Left Stage 1a (T1c, N0, M0) - Adjuvant Chemotherapy Cycle One (plan is four treatment cycles) completed 11/12/20 with Taxotere/Cytoxan and Neulasta - Status Post Lumpectomy and SLN in August, re-excision for Margins in Sep (Dr. Carlin) - Oncotype Dx Score High at 29 (Reason for need of adjuvant Chemo) Leukocytosis: - Reactive to Neulasta, Recent High dose Dexamethasone, and possible contributing infectious/inflammatory component Normocytic Anemia: - Secondary to chemotherapy - Likely contributing factors include decreased PO intake, chronic inflammation (diabetes), PLus/Minus component of CKD (unknown stage). Pelvic Pain/Dysuria: - Ultrasound of Abdomen and Pelvis - Urinalysis with Culture Pending. Increase Liver Function:stable - History of Chronic mild elevation Liver Function - Last Work-up 2015 Diabete Mellitus: - Sugars have not been controlled during chemo week with increased dexamethsone during treatment plan. PLan: - Re-examine supportive medications prior to next treatment, balancing dexamethasone and glucose levels along with remaining hydrated. - Will have her follow-up prior to next treatment - Questran to slow diarrhea, not tolerating metamucil All other acute issues per primary and Nephrology tteams
[2020-11-23 16:16] LABS: Hemoglobin A1C 9.2 % (4.0-6.0)
[2020-11-23 16:43] LABS: Glucose,Whole Blood 176 mg/dL (75-99)
[2020-11-23] MEDS: PANTOPRAZOLE 40 MG TABLET PO SCH (18:07)
[2020-11-23] MEDS: CHOLESTYRAMINE (WITH SUGAR) 4 GM PACKET PO SCH ×2 (18:07→20:49)
[2020-11-23 20:27] LABS: Glucose,Whole Blood 237 mg/dL (75-99)
[2020-11-23] MEDS: ATORVASTATIN 10 MG TAB PO SCH (20:49)
[2020-11-23] MEDS: OLANZapine 5 MG TAB PO SCH (20:50)
[2020-11-23] MEDS ORDERED: INSULIN DETEMIR (LEVEMIR) 100 UNIT/ML SYR SQ SCH (21:00)
[2020-11-24] MEDS: SODIUM CHLORIDE 0.45% 1,000 ML IV SCH (02:44)
[2020-11-24 05:54] LABS: Glucose,Whole Blood 131 mg/dL (75-99)
[2020-11-24] MEDS: PANTOPRAZOLE 40 MG TABLET PO SCH ×2 (06:11→17:12)
[2020-11-24] MEDS: CHOLESTYRAMINE (WITH SUGAR) 4 GM PACKET PO SCH ×3 (06:11→17:12)
[2020-11-24] MEDS: INSULIN ASPART (NovoLOG) 100 UNIT/ML VIAL SQ SCH ×3 (06:12→17:12)
[2020-11-24 07:49] VITALS: RESP 17
[2020-11-24] MEDS: MAGNESIUM OXIDE 400 MG TAB PO SCH ×2 (09:12→17:12)
[2020-11-24] MEDS: HEPARIN SODIUM,PORCINE 5,000 UNIT/ML 1 ML VIAL SQ SCH (09:12)
[2020-11-24] MEDS: METOPROLOL TARTRATE 25 MG TAB PO SCH (09:12)
[2020-11-24] MEDS: metFORMIN 500 MG TAB PO SCH (09:12)
[2020-11-24] MEDS: SODIUM BICARBONATE TAB 650 MG TAB PO SCH (09:12)
[2020-11-24] MEDS: VIT A,C & E-LUTEIN-MINERALS 1 EACH TAB PO SCH (09:12)
[2020-11-24] MEDS: PIPERACILLIN-TAZOBACTAM 3.375 GM in SODIUM CHLORIDE 0.9% 100 ML IVPB SCH ×2 (09:12→17:13)
[2020-11-24] MEDS: GLIMEPIRIDE 4 MG TAB PO SCH (09:13)
[2020-11-24] MEDS: ursodioL 300 MG CAP PO SCH ×2 (09:13→12:34)
[2020-11-24] MEDS: PRENATAL VIT-IRON-FOLIC ACID 1 EACH CAP PO SCH (09:13)
[2020-11-24 10:05] LABS: Calcium 9.2 mg/dL (8.4-10.2); Magnesium 1.3 mg/dL (1.6-2.3); Potassium 4.6 mmol/L (3.5-5.1)
--- NOTE | 2020-11-24 10:05 | P.PN ---
Subjective Patient is seen in follow-up for hyponatremia. Sodium level 134 as of yesterday. Oral intake fair. No chest pain or shortness of breath. Maintained on half normal saline. Blood pressure stable. Awake and alert. Vital signs are stable. General: The patient appeared well nourished and normally developed. HEENT: Head exam is unremarkable. Neck is without jugular venous distension. LUNGS: Breath sounds decreased. HEART: Rate and Rhythm are regular. ABDOMEN: Soft, nontender. EXTREMITITES: No edema. Objective - Vital Signs Vital signs: Vital Signs Temp 98.1 F 11/24/20 07:48 Pulse 89 11/24/20 07:48 Resp 17 11/24/20 07:48 BP 119/65 11/24/20 07:48 Pulse Ox 98 11/24/20 07:48 Intake & Output 11/23/20 11/24/20 11/24/20 18:59 06:59 18:59 Intake Total 1330 240 Balance 1330 240 Weight 97.7 kg Intake: Intake, IV Titration 250 Amount Magnesium Sulfate-D5w Pmx 100 1 gm In Dextrose/Water 1 100ml.bag @ 100 mls/hr IVPB Q1H JUDITH Rx#: [id number] Sodium Chloride 0.45% 1, 150 000 ml @ 75 mls/hr IV . [id number] JUDITH Rx#:[id number] Oral 1080 240 Other: Voiding Method Toilet Toilet Toilet # Voids 1 1 # Bowel Movements 1 - Labs CBC & Chem 7: 11/23/20 07:01 11/23/20 07:01 Labs: Abnormal Lab Results - Last 24 Hours (Table) 11/23/20 11/23/20 11/23/20 Range/Units 07:01 07:01 11:35 Metamyelocytes # (Man) 0.67 H (0) k/uL Myelocytes # (Manual) 0.34 H (0) k/uL Nucleated RBCs 2 H (0-0) /100 WBC POC Glucose (mg/dL) 228 H (75-99) mg/dL Hemoglobin A1c 9.2 H (4.0-6.0) % 11/23/20 11/23/20 11/24/20 Range/Units 16:41 20:26 05:53 Metamyelocytes # (Man) (0) k/uL Myelocytes # (Manual) (0) k/uL Nucleated RBCs (0-0) /100 WBC POC Glucose (mg/dL) 176 H 237 H 131 H (75-99) mg/dL Hemoglobin A1c (4.0-6.0) % Microbiology - Last 24 Hours (Table) 11/21/20 10:11 Blood Culture - Preliminary Blood No Growth after 48 hours Assessment and Plan Plan: Assessment: 1. Hypovolemic hyponatremia secondary to poor intake and diarrhea and excessive water intake. Was also on hydrochlorothiazide. Better. 2. Chronic kidney disease stage IIIa with baseline creatinine near 1.2. 3. Acute kidney injury mostly prerenal secondary to hypovolemia improved with IV hydration. Creatinine 1.39 as of yesterday. No proteinuria. 4. Hypomagnesemia for midodrine, thiazide and GI losses. Status post replacement. 5. Metabolic acidosis secondary to acute kidney injury and GI losses. Better. Maintained on oral bicarbonate. 6. Hypertension with chronic kidney disease. Stable. 7. Diabetes mellitus. 8. Diarrhea. Better. Plan: Hep-Lock IV fluids. Encouraged oral intake. Continue to hold lisinopril and hydrochlorothiazide. Morning labs pending. Anticipate discharge soon. Follow up outpatient in 1-2 weeks. Decrease bicarb to twice a day.
[2020-11-24 10:21] LABS: HCT 29.9 % (34.0-46.0); HGB 9.9 gm/dL (11.4-16.0); MCH 30.5 pg (25.0-35.0); MCHC 33.1 g/dL (31.0-37.0); MCV 92.3 fL (80.0-100.0); Mean Platelet Volume 7.2; Platelet Count 187 k/uL (150-450); RBC 3.24 m/uL (3.80-5.40); RDW 12.5 % (11.5-15.5); WBC 7.5 k/uL (3.8-10.6)
[2020-11-24 10:52] VITALS: BMI 31.8
[2020-11-24 11:07] LABS: Band Neutrophils % 7 %; Eosinophils # (M) 0.08 k/uL (0-0.7); Lymphocytes # (M) 1.58 k/uL (1.0-4.8); Metamyelocytes # (M) 0.23 k/uL (0); Metamyelocytes % 3 %; Monocytes # (M) 0.53 k/uL (0-1.0); Myelocytes # (M) 0.23 k/uL (0); Myelocytes % 3 %; Neutrophils % (M) 60 %; Nucleated Red Blood Cells 0 /100 WBC (0-0); Total Cells Counted 200
[2020-11-24 11:44] LABS: Glucose,Whole Blood 139 mg/dL (75-99)
[2020-11-24 12:00] VITALS: BP 107/59; TEMP 97.4
[2020-11-24] MEDS: MAGNESIUM SULFATE-D5W PMX 1 GM in DEXTROSE/WATER 1 100ML.BAG IVPB SCH ×3 (12:34→15:10)
--- NOTE | 2020-11-24 14:31 | P.PN ---
Subjective Progress Note Date: 11/24/20 Principal diagnosis: Hyponatremia Dehydration Stool is becoming more formed. A follow-up appointment for Thursday 11/30 has been made to review plan prior to next treatment. I have also discussed with Dr. Leos, and will provide increased glucose coverage on days of dexamethasone. Objective - Vital Signs Vital signs: Vital Signs Temp 97.4 F L 11/24/20 11:58 Pulse 77 11/24/20 11:58 Resp 17 11/24/20 11:58 BP 107/59 11/24/20 11:58 Pulse Ox 99 11/24/20 11:58 Intake & Output 11/23/20 11/24/20 11/24/20 18:59 06:59 18:59 Intake Total 1330 630 Balance 1330 630 Weight 97.7 kg 97.7 kg Intake: Intake, IV Titration 250 150 Amount Magnesium Sulfate-D5w Pmx 100 1 gm In Dextrose/Water 1 100ml.bag @ 100 mls/hr IVPB Q1H JUDITH Rx#: [id number] Sodium Chloride 0.45% 1, 150 150 000 ml @ 75 mls/hr IV . [id number] JUDITH Rx#:[id number] Oral 1080 480 Other: Voiding Method Toilet Toilet Toilet # Voids 1 1 # Bowel Movements 1 - Exam Alert and Oriented NAD NEck Supple Pale No Rash Lungs: CTA no increased effort Heart: Tachy Ext: No edema - Labs CBC & Chem 7: 11/24/20 09:35 11/24/20 09:35 Labs: Abnormal Lab Results - Last 24 Hours (Table) 11/23/20 11/23/20 11/23/20 Range/Units 07:01 16:41 20:26 RBC (3.80-5.40) m/uL Hgb (11.4-16.0) gm/dL Hct (34.0-46.0) % Metamyelocytes # (Man) (0) k/uL Myelocytes # (Manual) (0) k/uL Sodium (137-145) mmol/L Creatinine (0.52-1.04) mg/dL Glucose (74-99) mg/dL POC Glucose (mg/dL) 176 H 237 H (75-99) mg/dL Hemoglobin A1c 9.2 H (4.0-6.0) % Magnesium (1.6-2.3) mg/dL 11/24/20 11/24/20 11/24/20 Range/Units 05:53 09:35 09:35 RBC 3.24 L (3.80-5.40) m/uL Hgb 9.9 L (11.4-16.0) gm/dL Hct 29.9 L (34.0-46.0) % Metamyelocytes # (Man) 0.23 H (0) k/uL Myelocytes # (Manual) 0.23 H (0) k/uL Sodium 132 L (137-145) mmol/L Creatinine 1.48 H (0.52-1.04) mg/dL Glucose 240 H (74-99) mg/dL POC Glucose (mg/dL) 131 H (75-99) mg/dL Hemoglobin A1c (4.0-6.0) % Magnesium 1.3 L (1.6-2.3) mg/dL 11/24/20 Range/Units 11:42 RBC (3.80-5.40) m/uL Hgb (11.4-16.0) gm/dL Hct (34.0-46.0) % Metamyelocytes # (Man) (0) k/uL Myelocytes # (Manual) (0) k/uL Sodium (137-145) mmol/L Creatinine (0.52-1.04) mg/dL Glucose (74-99) mg/dL POC Glucose (mg/dL) 139 H (75-99) mg/dL Hemoglobin A1c (4.0-6.0) % Magnesium (1.6-2.3) mg/dL Microbiology - Last 24 Hours (Table) 11/21/20 10:11 Blood Culture - Preliminary Blood No Growth after 72 hours Assessment and Plan (1) Breast cancer, left Current Visit: Yes Status: Acute Code(s): C50.912 - MALIGNANT NEOPLASM OF UNSPECIFIED SITE OF LEFT FEMALE BREAST SNOMED Code(s): 335023068 (2) Acute renal insufficiency Current Visit: Yes Status: Acute Code(s): N28.9 - DISORDER OF KIDNEY AND URETER, UNSPECIFIED SNOMED Code(s): 795796810 (3) Diarrhea Current Visit: Yes Status: Acute Code(s): R19.7 - DIARRHEA, UNSPECIFIED SNOMED Code(s): 54679374 (4) Abnormal liver function Current Visit: Yes Status: Acute Code(s): R94.5 - ABNORMAL RESULTS OF LIVER FUNCTION STUDIES SNOMED Code(s): 38138411 (5) Leukocytosis Current Visit: Yes Status: Acute Code(s): D72.829 - ELEVATED WHITE BLOOD CELL COUNT, UNSPECIFIED SNOMED Code(s): 245808793 (6) Normocytic anemia Current Visit: Yes Status: Acute Code(s): D64.9 - ANEMIA, UNSPECIFIED SNOMED Code(s): 010299046 Plan: Assessment and Recommendations: Severe Hyponatremia: - Check Serum and Urine Osmolarity - Check Urine Sodium - Nephrology Management and Correction - Consider Adrenal insufficiency in differential with recent high dose dexamathasone - Will follow-up if persists as outpatient, as dexamethasone as a long acting medication will likely falsify this work-up at this time. Hypomagnesium: - Supplementation ordered - Secondary to dehydration, Diarrhea, and decreased PO intake - Further evaluate with Phosphorus, Vitamin D, and TSH Severe Dehydration: - Likely secondary to persistent Diarrhea and decreased PO intake - Nephrology is following Diarrhea: - Likely adverse reaction to chemotherapy - Check for infectious/inflammatory causes: Stool studies ordered - Check Pancreatic Enzymes Breast Cancer: Left Stage 1a (T1c, N0, M0) - Adjuvant Chemotherapy Cycle One (plan is four treatment cycles) completed 11/12/20 with Taxotere/Cytoxan and Neulasta - Status Post Lumpectomy and SLN in August, re-excision for Margins in September 2020 (Dr. Carlin) - Oncotype Dx Score High at 29 (Reason for need of adjuvant Chemo) Leukocytosis: - Reactive to Neulasta, Recent High dose Dexamethasone, and possible contributing infectious/inflammatory component Normocytic Anemia: - Secondary to chemotherapy - Likely contributing factors include decreased PO intake, chronic inflammation (diabetes), PLus/Minus component of CKD (unknown stage). Pelvic Pain/Dysuria: - Ultrasound of Abdomen and Pelvis - Urinalysis with Culture Pending. Increase Liver Function:stable - History of Chronic mild elevation Liver Function - Last Work-up 2015 Diabete Mellitus: - Sugars have not been controlled during chemo week with increased dexamethsone during treatment plan. PLan: - Re-examine supportive medications prior to next treatment, balancing dexamethasone and glucose levels along with remaining hydrated. - Will have her follow-up prior to next treatment - Made for 11/30/20@3pm - Thaddeusran to slow diarrhea, not tolerating metamucil
[2020-11-24 14:48] LABS: Albumin 3.1 g/dL (3.5-5.0); Bilirubin, Delta 0.2 mg/dL (0.0-0.2); Bilirubin,Unconjugated 0.1 mg/dL (0.0-1.1); Total Bilirubin 0.3 mg/dL (0.2-1.3); Total Protein 5.8 g/dL (6.3-8.2)
--- NOTE | 2020-11-24 15:27 | P.DS ---
Providers Date of admission: 11/21/20 09:56 Expected date of discharge: 11/24/20 Attending physician: Mor Leos Consults: 11/21/20 09:56 Consult Physician Urgent Consulting Provider: eRuben Zepeda Consult Reason/Comments: Hyponatremia, hypomagnesemia Do you want consulting provider notified?: Yes 11/21/20 11:22 Consult Physician Urgent Consulting Provider: Dimitrios Raya Consult Reason/Comments: hyponatremia Do you want consulting provider notified?: Already Contacted Primary care physician: Mor Leos [facility] Course: Final Diagnoses: Hyponatremia, hypovolemic secondary to dehydration related to diarrhea, decreased oral intake,excessive water intake, med induced with hydrochlorothiazide discontinued Acute renal failure secondary to the above, prerenal,improving with IV fluid hydration. Diarrhea suspect secondary to chemotherapy. Chronic kidney disease, stage IIIa Metabolic acidosis secondary to renal failure Hypomagnesemia Leukocytosis secondary to Neulasta, recently on high-dose steroids, resolved. Left Breast CA, status post radiation chemotherapy Diabetes mellitus type 2 Possible mild right-sided hydronephrosis unchanged per CT Some focal diverticulitis in the big sigmoid colon per CT, Gastroesophageal reflux disease Hypertension Hyperlipidemia Chronic liver disease Anxiety Depression Obesity, BMI 31.6 Hospital course:This is 65-year-old female admitted with severe dehydration, renal failure, hyponatremia, hypomagnesemia secondary to recent chemotherapy. CT reported some sigmoid diverticulosis with focal diverticulitis of the mid sigmoid colon, no abscess, mild right-sided hydronephrosis unchanged, compared to prior with no obstructing calculus. Ultrasound reported possible hepatocellular disease, hepatic steatosis, hepatomegaly, dilated common bile duct, cortical thinning, chronic pelvictasis within the kidneys. Maintained on Zosyn. Continues on half normal saline with sodium 134. Potassium 5.2, magnesium 1.6. Complains of diarrhea, abdominal cramping. Mild hypotension during sleep, currently systolic blood pressure up into the 130s. Diet intake improved, blood sugars uncontrolled. Maintained on IV fluid hydration, Zosyn .Magnesium supplementation as ordered. Home medication Zestoretic(Lisinopril-HCTZ) has been dc'd. Lantus insulin dose to be increased by 5 units when on Decadron, as discussed with oncology. Ralph ared by all consults for discharge. Patient will be discharged home today in a stable condition with guarded prognosis. The impression and plan of care has been dictated as directed. : I performed a history and examination of this patient, discussed the same with the dictator. I agree with the dictator's note ,documented as a scribe. Any additional findings or plans will be noted. Patient Condition at Discharge: Stable Plan - Discharge Summary Discharge Rx Participant: Yes New Discharge Prescriptions: New Ciprofloxacin HCl [Cipro] 500 mg PO BID 5 Days #10 tab Saline Nasal Gel [[place] Nasal Gel] 1 applic TOPICAL Q4HR PRN gm PRN Reason: Dry Nasal Passages Loperamide [Imodium] 2 mg PO QID PRN cap PRN Reason: Diarrhea Pantoprazole [Protonix] 40 mg PO AC-BID #60 tablet. Cholestyramine (with Sugar) [Questran Packet] 4 gm PO ACHS #40 packet Sodium Bicarbonate Tab 650 mg PO QID tab Continue Metoprolol Tartrate [Lopressor] 25 mg PO BID Magnesium Oxide 400 mg PO TID ursodioL [Ursodiol] 600 mg PO BID ALPRAZolam [Xanax] 0.5 mg PO TID PRN PRN Reason: Anxiety Lovastatin [Mevacor] 40 mg PO HS metFORMIN HCL [Glucophage] 1,000 mg PO BID Glimepiride [Amaryl] 4 mg PO BID Lutein 20 mg PO DAILY traMADol HCL 50 - 100 mg PO Q6H PRN PRN Reason: Pain Ondansetron [Zofran] 4 - 8 mg PO Q8H PRN PRN Reason: Nausea OLANZapine [ZyPREXA] 5 mg PO HS ursodioL [Ursodiol] 300 mg PO DAILY@1200 Waj-Ooat-Zihnc Acid [-U Capsule (formulary)] 2 cap PO DAILY Dexamethasone [Decadron] 4 mg PO DIRECTED Changed Insulin Glargine [Lantus] 20 unit SQ HS #0 Discontinued Omeprazole 20 mg PO QAM Lisinopril-Hctz 20-12.5 mg [Zestoretic 20-12.5] 1 tab PO QAM Psyllium Husk [Metamucil] 0.4 gm PO DAILY Discharge Medication List ALPRAZolam [Xanax] 0.5 mg PO TID PRN 08/19/20 [History] Lovastatin [Mevacor] 40 mg PO HS 08/19/20 [History] Magnesium Oxide 400 mg PO TID 08/19/20 [History] Metoprolol Tartrate [Lopressor] 25 mg PO BID 08/19/20 [History] ursodioL [Ursodiol] 600 mg PO BID 08/19/20 [History] metFORMIN HCL [Glucophage] 1,000 mg PO BID 09/07/20 [History] Glimepiride [Amaryl] 4 mg PO BID 11/12/20 [History] Dexamethasone [Decadron] 4 mg PO DIRECTED 11/21/20 [History] Lutein 20 mg PO DAILY 11/21/20 [History] OLANZapine [ZyPREXA] 5 mg PO HS 11/21/20 [History] Ondansetron [Zofran] 4 - 8 mg PO Q8H PRN 11/21/20 [History] Ldr-Xsvn-Rchbf Acid [-U Capsule (formulary)] 2 cap PO DAILY 11/21/20 [History] traMADol HCL 50 - 100 mg PO Q6H PRN 11/21/20 [History] ursodioL [Ursodiol] 300 mg PO DAILY@1200 11/21/20 [History] Cholestyramine (with Sugar) [Questran Packet] 4 gm PO ACHS #40 packet 11/24/20 [Rx] Ciprofloxacin HCl [Cipro] 500 mg PO BID 5 Days #10 tab 11/24/20 [Rx] Insulin Glargine [Lantus] 20 unit SQ HS #0 11/24/20 [Rx] Loperamide [Imodium] 2 mg PO QID PRN cap 11/24/20 [Rx] Pantoprazole [Protonix] 40 mg PO AC-BID #60 tablet. 11/24/20 [Rx] Saline Nasal Gel [[place] Nasal Gel] 1 applic TOPICAL Q4HR PRN gm 11/24/20 [Rx] Sodium Bicarbonate Tab 650 mg PO QID tab 11/24/20 [Rx] Follow up Appointment(s)/Referral(s): Mor Leos DO [Primary Care Provider] - 3 Days Katelyn Cardoza ANPBC [Nurse Practitioner] - 11/30/20 3:00 pm Ambulatory/Diagnostic Orders: Complete Blood Count w/diff [LAB.AMB] Time Frame: 3 Days, Location: None Selected Activity/Diet/Wound Care/Special Instructions: decadron rec as per Oncology. On days of Decadron treatment, patient has been advised to increase Lantus insulin by 5 units .COnfirm Oncology F/U apt. prior to dc.Aspirin currently on hold. Labs pending.
[2020-11-24 15:39] VITALS: PULSE 73
[2020-11-24 16:41] LABS: Glucose,Whole Blood 222 mg/dL (75-99)
[2020-11-24] MEDS ORDERED: SODIUM BICARBONATE TAB 650 MG TAB PO SCH (21:00)
[2020-11-25 00:28] LABS: Protein, Total 5.7 g/dL (6.2-8.2)
[2020-11-25 11:26] LABS: Free Kappa Lt Chain Qnt, Serum 2.51 mg/dL (0.33-1.94)
[2020-11-25 13:30] LABS: Albumin 2.88 g/dL (3.80-4.90); Gamma Globulin 0.58 g/dL (0.70-1.50)
== END 2020-11-24 18:25 | disposition home or self-care (01) | DRG 641 ==
LOC: EC 08:12 → 3SCARD 09:56
PROVIDERS: ADMIT Family Medicine; ATTEND Family Medicine
DX: E87.1 Hypo-osmolality and hyponatremia (principal); K57.32 Diverticulitis of large intestine without perforation or abscess without bleeding; N17.9 Acute kidney failure, unspecified; K62.5 Hemorrhage of anus and rectum; N13.30 Unspecified hydronephrosis; K52.1 Toxic gastroenteritis and colitis; E86.0 Dehydration; E83.42 Hypomagnesemia; E78.5 Hyperlipidemia, unspecified; E86.1 Hypovolemia; E87.2 Acidosis; Z20.822 Contact with and (suspected) exposure to COVID-19; E66.9 Obesity, unspecified; D64.9 Anemia, unspecified; F41.9 Anxiety disorder, unspecified; F32.9 Major depressive disorder, single episode, unspecified; I12.9 Hypertensive chronic kidney disease with stage 1 through stage 4 chronic kidney disease, or unspecified chronic kidney disease; T45.1X5A Adverse effect of antineoplastic and immunosuppressive drugs, initial encounter; N18.31 Chronic kidney disease, stage 3a; E87.8 Other disorders of electrolyte and fluid balance, not elsewhere classified; K64.9 Unspecified hemorrhoids; Z96.651 Presence of right artificial knee joint; K21.9 Gastro-esophageal reflux disease without esophagitis; Z68.31 Body mass index [BMI] 31.0-31.9, adult; Z92.3 Personal history of irradiation; Z90.710 Acquired absence of both cervix and uterus; Z85.3 Personal history of malignant neoplasm of breast; Z80.49 Family history of malignant neoplasm of other genital organs; Z80.41 Family history of malignant neoplasm of ovary; Z80.0 Family history of malignant neoplasm of digestive organs; Z79.899 Other long term (current) drug therapy; Z79.82 Long term (current) use of aspirin; Z79.4 Long term (current) use of insulin
CPT/HCPCS: 36415; 74176; 76705; 76770; 80048; 80053; 80076; 81001; 82150; 82306; 82607; 82728; 82746; 82784; 83036; 83540; 83550; 83615; 83630; 83690; 83735; 83883; 83921; 83930; 83935; 84100; 84165; 84300; 84443; 85025; 85045; 86334; 87040; 87045; 87046; 87324; 87635; 96361; 96365; 99285

== ENCOUNTER → 2020-11-26 | Outpatient (CLI) | payer MEDICARE ==
[2020-11-26 20:13] LABS: Basophils # (M) 0.08 X 10*3/uL (0.00-0.10); Eosinophils # (M) 0 X 10*3/uL (0.04-0.35); HCT 29.8 % (37.2-46.3); HGB 9.5 g/dL (12.0-15.0); Lymphocytes # (M) 1.23 X 10*3/uL (0.90-5.00); MCH 30.4 pg (27.0-32.0); MCHC 31.9 g/dL (32.0-37.0); MCV 95.5 fL (80.0-97.0); Mean Platelet Volume 12.2 fL (9.5-12.2); Metamyelocytes % 1 % (0-0); Monocytes # (M) 0.38 X 10*3/uL (0.20-1.00); Myelocytes % 4 % (0-0); Neutrophils % (M) 73 %; Platelet Count 150 X 10*3/uL (140-440); RBC 3.12 X 10*6/uL (4.10-5.20); RDW 12.3 % (11.5-14.5); Toxic Granulation 2+; WBC 7.67 X 10*3/uL (4.50-10.00)
[2020-11-26 22:56] LABS: African American GFR (CKD) 46.2 (60.0-200.0); Anion Gap 10.7 mmol/L (4.00-12.00); BUN/Creat Ratio 14.29 Ratio (12.00-20.00); Calcium 9.5 mg/dL (8.7-10.3); Carbon Dioxide 22.3 mmol/L (21.6-31.8); Non-African American GFR(CKD) 39.9 (60.0-200.0); Potassium 5.5 mmol/L (3.5-5.5)
== END | disposition home or self-care (01) ==
LOC: LABWHC1 11:39
PROVIDERS: ATTEND Nurse Practitioner
DX: D64.9 Anemia, unspecified (principal); N19 Unspecified kidney failure; E87.1 Hypo-osmolality and hyponatremia
CPT/HCPCS: 36415; 80048; 85025

== ENCOUNTER → 2020-12-22 | Outpatient (CLI) | payer MEDICARE ==
[2020-12-22 15:57] LABS: Creatinine,Urine Random 77.2 mg/dL; Protein/Creatinine Ratio,Urine 0.104
[2020-12-23 01:38] LABS: African American GFR (CKD) 55.7 (60.0-200.0); Albumin 4.1 g/dL (3.80-4.90); Albumin/Globulin Ratio 1.86 (1.60-3.17); Anion Gap 12.2 mmol/L (4.00-12.00); BUN/Creat Ratio 13.33 Ratio (12.00-20.00); Carbon Dioxide 24.8 mmol/L (21.6-31.8); Globulin 2.2 g/dL (1.6-3.3); Magnesium 1.3 mg/dL (1.5-2.4); Non-African American GFR(CKD) 48.1 (60.0-200.0); Potassium 4.1 mmol/L (3.5-5.5); Total Bilirubin 0.4 mg/dL (0.2-1.2); Total Protein 6.3 g/dL (6.2-8.2)
== END | disposition home or self-care (01) ==
LOC: LABWHC1 13:35
PROVIDERS: ATTEND Nurse Practitioner Family
DX: E87.1 Hypo-osmolality and hyponatremia (principal); E83.42 Hypomagnesemia
CPT/HCPCS: 36415; 80053; 82570; 83735; 84156

== ENCOUNTER → 2021-01-11 | Outpatient (CLI) | payer MEDICARE ==
[2021-01-11 19:13] LABS: African American GFR (CKD) 50.6 (60.0-200.0); Albumin 4.2 g/dL (3.80-4.90); Albumin/Globulin Ratio 2.33 (1.60-3.17); Anion Gap 12.2 mmol/L (4.00-12.00); BUN/Creat Ratio 14.62 Ratio (12.00-20.00); Calcium 9.6 mg/dL (8.7-10.3); Carbon Dioxide 24.8 mmol/L (21.6-31.8); Globulin 1.8 g/dL (1.6-3.3); Magnesium 1.4 mg/dL (1.5-2.4); Non-African American GFR(CKD) 43.6 (60.0-200.0); Potassium 4.4 mmol/L (3.5-5.5); Total Bilirubin 0.3 mg/dL (0.3-1.2)
== END | disposition home or self-care (01) ==
LOC: LABWHC1 14:28
PROVIDERS: ATTEND Nurse Practitioner Family
DX: E87.1 Hypo-osmolality and hyponatremia (principal); E83.42 Hypomagnesemia
CPT/HCPCS: 36415; 80053; 83735

== ENCOUNTER → 2021-04-12 | Outpatient (CLI) | payer MEDICARE ==
[2021-04-12 12:08] LABS: Creatinine,Urine Random 165.8 mg/dL; Protein/Creatinine Ratio,Urine 0.048
[2021-04-12 22:25] LABS: African American GFR (CKD) 55.7 (60.0-200.0); Albumin 4.2 g/dL (3.80-4.90); Albumin/Globulin Ratio 1.83 (1.60-3.17); Anion Gap 13.7 mmol/L (4.00-12.00); Calcium 9.7 mg/dL (8.7-10.3); Carbon Dioxide 23.3 mmol/L (21.6-31.8); Globulin 2.3 g/dL (1.6-3.3); Magnesium 1.6 mg/dL (1.5-2.4); Non-African American GFR(CKD) 48.1 (60.0-200.0); Potassium 4.7 mmol/L (3.5-5.5); Total Bilirubin 0.5 mg/dL (0.3-1.2); Total Protein 6.5 g/dL (6.2-8.2)
== END | disposition home or self-care (01) ==
LOC: LABWHC1 10:15
PROVIDERS: ATTEND Nurse Practitioner Family
DX: E87.1 Hypo-osmolality and hyponatremia (principal); E83.42 Hypomagnesemia; R80.9 Proteinuria, unspecified
CPT/HCPCS: 36415; 80053; 82570; 83735; 84156

== ENCOUNTER → 2021-04-23 | Outpatient (CLI) | payer MEDICARE ==
--- NOTE | 2021-04-26 15:06 | BD ---
EXAMINATION TYPE: Axial Bone Density DATE OF EXAM: 04/23/2021 COMPARISON: NONE CLINICAL HISTORY: Height: 5 FT 7 IN Weight: 223 FRAX RISK QUESTIONS: Alcohol (3 or more units per day): NO Family History (Parent hip fracture): NO Glucocorticoids (More than 3mos): NO (Ex: prednisone, prednisolone, methylprednisolone, dexamethasone, and hydrocortisone). History of Fracture in Adulthood: NO Secondary Osteoporosis: 1. Type 1 Diabetes: NO 2. Hyperthyroidism: NO 3. Menopause before 45: YES 4. Malnutrition: NO 5. Chronic liver disease: YES Rheumatoid Arthritis: NO Current Tobacco Use: NO RISK FACTORS HISTORY OF: Surgery to Spine/Hip(right/left)/Wrist (right/left): NO Family History of Osteoporosis: NO Active: YES Diet low in dairy products/other sources of calcium: NO Postmenopausal woman: TOTAL HYST AGE 42 Take estrogen and/or progesterone medications: TOOK HRT FOR A SHORT TIME AFTER HYST Lost more than 2 inches in height since high school: YES MEDICATIONS: Additional Medications: , BABY ASPIRIN, LOVASTATIN, METFORMIN, GLIMEPIRIDE, URSODIOL, ALPRAZOLAM, MA GNESIUM, PANTOPRAZOLE, METOPROLOL, LANTUS, LETROZOLE, Additional History: HX BREAST CANCER CHEMO AND RADIATION AND GREG EXAM MEASUREMENTS: Bone mineral densitometry was performed using the [employer] System. Bone mineral density as measured about the Lumbar spine is: ----- L1-L4(G/cm2): 1.116 T Score Values are as follows: ----- L2: -0.6 ----- L3: -0.3 ----- L4: -1.0 ----- L1-L4: -0.5 BASELINE Bone mineral density about the R hip (g/cm2): 0.947 Bone mineral density about the L hip (g/cm2): 0.913 T Score values are as follows: -----R Neck: -0.7 -----L Neck: -0.9 -----R Total minus 0.3 -----L Total: -0.4 BASELINE IMPRESSION: Normal T score bony density is seen. Major osteoporotic fracture risk is 7.1% and her fra cture risk 0.4% in 10 year probability of fracture. NOTE: T-SCORE=SD OF THE YOUNG ADULT MEAN.
== END | disposition home or self-care (01) ==
LOC: RADBDWWP 13:09
PROVIDERS: ATTEND Internal Medicine Hematology & Oncology
DX: C50.912 Malignant neoplasm of unspecified site of left female breast (principal); Z79.890 Hormone replacement therapy
CPT/HCPCS: 77080

== ENCOUNTER → 2021-07-14 | Outpatient (CLI) | payer MEDICARE ==
[2021-07-14 23:41] LABS: Basophils # (A) 0.02 X 10*3/uL (0.00-0.10); Basophils % (A) 0.4 %; Eosinophils # (A) 0.12 X 10*3/uL (0.04-0.35); Eosinophils % (A) 2.6 %; HCT 34.8 % (37.2-46.3); HGB 11.3 g/dL (12.0-15.0); MCH 29.6 pg (27.0-32.0); MCHC 32.5 g/dL (32.0-37.0); MCV 91.1 fL (80.0-97.0); Mean Platelet Volume 13.2 fL (9.5-12.2); Monocytes # (A) 0.43 X 10*3/uL (0.20-1.00); Monocytes % (A) 9.3 %; Neutrophils # (A) 2.14 X 10*3/uL (1.80-7.70); Neutrophils % (A) 46.3 %; Platelet Count 173 X 10*3/uL (140-440); RBC 3.82 X 10*6/uL (4.10-5.20); RDW 13.1 % (11.5-14.5); WBC 4.63 X 10*3/uL (4.50-10.00)
[2021-07-15 00:31] LABS: Erythrocyte Sedimentation Rate 35 mm/Hr (0-30)
== END | disposition home or self-care (01) ==
LOC: LABWHC1 15:58
PROVIDERS: ATTEND Orthopaedic Surgery
DX: M25.561 Pain in right knee (principal); E78.5 Hyperlipidemia, unspecified; E11.9 Type 2 diabetes mellitus without complications; Z96.651 Presence of right artificial knee joint
CPT/HCPCS: 36415; 85025; 85652; 86140

== ENCOUNTER → 2021-07-26 | Outpatient (CLI) | payer MEDICARE ==
--- NOTE | 2021-07-26 15:00 | MM ---
Reason for exam: additional evaluation requested from prior study. Last mammogram was performed 11 months ago. History: Patient is postmenopausal and has history of breast cancer at age 65. Malignant MG pre op needle loc LT of the left breast, September 09, 2020. Lumpectomy of the left breast, September 09, 2020. Malignant US biopsy breast VAD LT of the left breast, August 26, 2020. Took estrogen for 18 years beginning at age 41. Taking antineoplastic beginning at age 65. Physical Findings: Nurse did not find any significant physical abnormalities on exam. MG 3D Diag Mammo W/Cad MIRA Bilateral CC and MLO view(s) were taken. XCCL view(s) were taken of the left breast. Prior study comparison: August 26, 2020, left breast MG diagnostic mammo LT wo CAD. July 31, 2020, left breast US breast workup limited LT. July 24, 2020, bilateral MG 3d screening mammo w/cad. June 10, 2019, bilateral MG 3d screening mammo w/cad. May 08, 2018, bilateral MG screening mammo w CAD. The breast tissue is heterogeneously dense. This may lower the sensitivity of mammography. Post surgical and post therapy change left breast. Post surgical scar/distortion posterior centrally on the left. Stable right medial asymmetric density. Benign oil cyst calcifications. No significant new findings when compared with previous films. These results were verbally communicated with the patient and result sheet given to the patient on 07/26/21. ASSESSMENT: Probably benign, BI-RAD 3 RECOMMENDATION: Follow-up diagnostic mammogram of the left breast in 6 months. (as assess for any evolving post therapy changes)
== END | disposition home or self-care (01) ==
LOC: RADMAMWWP 13:38
PROVIDERS: ATTEND Radiology Radiation Oncology
DX: C50.412 Malignant neoplasm of upper-outer quadrant of left female breast (principal); Z92.21 Personal history of antineoplastic chemotherapy; Z17.0 Estrogen receptor positive status [ER+]
CPT/HCPCS: 77066; G0279; 77062

== ENCOUNTER → 2021-08-03 | Outpatient (CLI) | payer MEDICARE ==
--- NOTE | 2021-08-03 13:55 | NM ---
EXAMINATION TYPE: NM bone/joint limited DATE OF EXAM: 08/03/2021 COMPARISON: NONE HISTORY: Pain TECHNIQUE: After the intravenous administration of 22.7 mCi Tc 99m MDP. Images acquired 5.5 hours p ost injection. Multiple views of bilateral knee are submitted. A photopenic defect involving the right knee compatible with previous surgery. Abnormal uptake involv ing the patella bilaterally and medial compartment of the knee joint space on the left which is likel y post arthritic. It is acute. Increased uptake surrounding the tibial and femoral component of the p rosthesis. IMPRESSION: 1. Increased uptake surrounding the tibial and femoral component of the prostheses. Consider tagged W BC study for further analysis to assess for possible infection or loosening. 2. Arthropathy of the left knee suspected
== END | disposition home or self-care (01) ==
LOC: RADNMMAIN 07:15
PROVIDERS: ATTEND Orthopaedic Surgery
DX: M25.561 Pain in right knee (principal); E78.5 Hyperlipidemia, unspecified; E11.9 Type 2 diabetes mellitus without complications; M25.661 Stiffness of right knee, not elsewhere classified; I10 Essential (primary) hypertension; T84.05 Periprosthetic osteolysis of internal prosthetic joint; Z96.651 Presence of right artificial knee joint
CPT/HCPCS: 78300; A9503

== ENCOUNTER → 2021-08-03 | Outpatient (CLI) | payer MEDICARE | END | disposition home or self-care (01) | LOC: LABWHC1 13:59 | PROVIDERS: ATTEND Internal Medicine | DX: Z53.9 Procedure and treatment not carried out, unspecified reason (principal) ==

== ENCOUNTER → 2021-08-06 | Outpatient (CLI) | payer MEDICARE ==
[2021-08-06 19:47] LABS: Basophils # (A) 0.03 X 10*3/uL (0.00-0.10); Basophils % (A) 0.7 %; Eosinophils # (A) 0.14 X 10*3/uL (0.04-0.35); Eosinophils % (A) 3.1 %; HCT 34.4 % (37.2-46.3); HGB 11.2 g/dL (12.0-15.0); Lymphocytes # (A) 1.56 X 10*3/uL (0.90-5.00); Lymphocytes % (A) 34.4 %; MCHC 32.6 g/dL (32.0-37.0); MCV 89.1 fL (80.0-97.0); Mean Platelet Volume 12.7 fL (9.5-12.2); Monocytes # (A) 0.33 X 10*3/uL (0.20-1.00); Monocytes % (A) 7.3 %; Neutrophils # (A) 2.47 X 10*3/uL (1.80-7.70); Neutrophils % (A) 54.3 %; Platelet Count 183 X 10*3/uL (140-440); RBC 3.86 X 10*6/uL (4.10-5.20); RDW 12.8 % (11.5-14.5); WBC 4.54 X 10*3/uL (4.50-10.00)
[2021-08-06 21:55] LABS: Magnesium 1.6 mg/dL (1.5-2.4); Phosphorus 3.7 mg/dL (2.4-5.1)
[2021-08-06 21:56] LABS: % Iron Saturation 12.2 (12.00-45.00); African American GFR (CKD) 63.5 (60.0-200.0); Albumin 4.2 g/dL (3.8-4.9); Albumin/Globulin Ratio 1.68 (1.60-3.17); Anion Gap 14.9 mmol/L (4.00-12.00); BUN/Creat Ratio 17.66 Ratio (12.00-20.00); Blood Urea Nitrogen 18.9 mg/dL (9.0-27.0); Calcium 9.9 mg/dL (8.7-10.3); Carbon Dioxide 23.8 mmol/L (21.6-31.8); Ferritin 44.5 ng/mL (10.0-291.0); Globulin 2.5 g/dL (1.6-3.3); Non-African American GFR(CKD) 54.8 (60.0-200.0); Potassium 4.7 mmol/L (3.5-5.5); Total Bilirubin 0.4 mg/dL (0.30-1.20); Total Protein 6.6 g/dL (6.2-8.2)
[2021-08-07 04:28] LABS: Microalbumin Creatinine Ratio <30 mg/g Creat (0-30); Urine Creatinine 84.2 mg/dL (28.0-217.0)
== END | disposition home or self-care (01) ==
LOC: LABWHC1 11:51
PROVIDERS: ATTEND Internal Medicine
DX: N18.31 Chronic kidney disease, stage 3a (principal); D64.9 Anemia, unspecified; N39.0 Urinary tract infection, site not specified; N25.81 Secondary hyperparathyroidism of renal origin; E55.9 Vitamin D deficiency, unspecified; M10.9 Gout, unspecified
CPT/HCPCS: 36415; 80053; 81001; 82043; 82306; 82570; 82728; 83540; 83550; 83735; 84100; 84550; 85025

== ENCOUNTER → 2021-08-24 | Outpatient (CLI) | payer MEDICARE ==
[2021-08-24 15:25] LABS: Chol/HDL Ratio 2.42 Ratio; HDL Cholesterol 66.2 mg/dL (40.00-60.00); LDL Cholesterol,Calculated 70.6 mg/dL (0.0-131.0); VLDL Calculation 23.2 mg/dL (5.00-40.00)
== END | disposition home or self-care (01) ==
LOC: LABWHC1 08:22
PROVIDERS: ATTEND Internal Medicine Interventional Cardiology
DX: E78.2 Mixed hyperlipidemia (principal)
CPT/HCPCS: 36415; 80061; 84450; 84460

== ENCOUNTER → 2022-02-01 | Outpatient (CLI) | payer MEDICARE ==
--- NOTE | 2022-02-01 14:25 | MM ---
Reason for exam: follow-up at short interval from prior study. Last mammogram was performed 6 months ago. History: Patient is postmenopausal and has history of breast cancer at age 65. Malignant MG pre op needle loc LT of the left breast, September 09, 2020. Lumpectomy of the left breast, September 09, 2020. Malignant US biopsy breast VAD LT of the left breast, August 26, 2020. Took estrogen for 18 years beginning at age 41. Taking antineoplastic beginning at age 65. Physical Findings: A clinical breast exam by your physician is recommended on an annual basis and results should be correlated with mammographic findings. MG 3D Diag Mammo W/Cad LT CC and MLO view(s) were taken of the left breast. Prior study comparison: July 26, 2021, bilateral MG 3d diag mammo w/cad MIRA. August 26, 2020, left breast MG diagnostic mammo LT wo CAD. The breast tissue is heterogeneously dense. This may lower the sensitivity of mammography. Post surgical and post therapy change left breast. Benign oil cyst and secretory calcifications. Results were given to the patient verbally at the time of the exam. ASSESSMENT: Probably benign, BI-RAD 3 RECOMMENDATION: Follow-up diagnostic mammogram of both breasts in 6 months.
== END | disposition home or self-care (01) ==
LOC: RADMAMWWP 13:38
PROVIDERS: ATTEND Family Medicine
DX: Z85.3 Personal history of malignant neoplasm of breast (principal)
CPT/HCPCS: 77065; G0279; 77061

== ENCOUNTER → 2022-03-25 | Outpatient (CLI) | payer MEDICARE ==
[2022-03-25 09:17] LABS: INR 0.9 (<1.2); Partial Thromboplastin Time 22.9 sec (22.0-30.0); Prothrombin Time 10.3 sec (9.0-12.0)
[2022-03-25 14:19] LABS: HCT 35.9 % (37.2-46.3); HGB 11.1 g/dL (12.0-15.0); MCH 28.7 pg (27.0-32.0); MCHC 30.9 g/dL (32.0-37.0); MCV 92.8 fL (80.0-97.0); Mean Platelet Volume 11.7 fL (9.5-12.2); NRBC Per 100 WBC 0 /100 WBCS (0.0-0.0); Platelet Count 151 X 10*3/uL (140-440); RBC 3.87 X 10*6/uL (4.10-5.20); RDW 13.1 % (11.5-14.5); WBC 3.32 X 10*3/uL (4.50-10.00)
[2022-03-25 15:08] LABS: African American GFR (CKD) 61.4 (60.0-200.0); Albumin 4.1 g/dL (3.8-4.9); Albumin/Globulin Ratio 1.71 (1.60-3.17); Anion Gap 9.5 mmol/L (10.00-18.00); BUN/Creat Ratio 16.45 Ratio (12.00-20.00); Blood Urea Nitrogen 18.1 mg/dL (9.0-27.0); Calcium 9.7 mg/dL (8.7-10.3); Carbon Dioxide 26.5 mmol/L (20.0-27.5); Globulin 2.4 g/dL (1.6-3.3); Potassium 5.3 mmol/L (3.5-5.5); Total Bilirubin 0.4 mg/dL (0.30-1.20); Total Protein 6.5 g/dL (6.2-8.2)
[2022-03-25 15:22] LABS: Appearance,Urine Clear (Clear); Bilirubin,Urine Negative (Negative); Blood,Urine Negative (Negative); Color,Urine Yellow (Yellow); Ketones,Urine Negative (Negative); Nitrite,Urine Negative (Negative); Specific Gravity,Urine 1.017 (1.001-1.030); Urobilinogen,Urine 0.2 (0.2,1.0)
[2022-03-25 15:28] LABS: Bacteria,Urine None Seen /HPF (None Seen)
== END | disposition home or self-care (01) ==
LOC: LABPAT 07:41
PROVIDERS: ATTEND Orthopaedic Surgery
DX: Z01.812 Encounter for preprocedural laboratory examination (principal); M17.11 Unilateral primary osteoarthritis, right knee
CPT/HCPCS: 80053; 81001; 85027; 85610; 85730; 87070; 93005

== ENCOUNTER → 2022-04-08 | Outpatient (CLI) | payer MEDICARE ==
--- NOTE | 2022-04-08 15:52 | NM ---
EXAMINATION TYPE: NM parathyroid w/spect DATE OF EXAM: 04/08/2022 COMPARISON: NONE HISTORY: Hypercalcemia TECHNIQUE: Following administration of 25.6 mCi Tc99m Sestamibi. Anterior projection images of the neck and ches t were obtained 10 minutes and 3 hours post injection. SPECT images of the neck and chest were obtai taj and reconstructed in three axes. FINDINGS: Thyroid tracer washout: Delayed images demonstrate near-complete tracer washout from the thyroid. Con tact Nodule lower pole left thyroid lobe. Parathyroid uptake: None. The two-hour delayed images do not demonstrate any focal abnormal persisten t uptake in the region of the parathyroid glands to suggest parathyroid adenoma. Normal uptake: There is physiological tracer uptake in the myocardium, liver, salivary glands, and th yroid gland. IMPRESSION: Normal parathyroid imaging study. No evidence for mediastinal uptake to suggest mediastinal parathyro id adenoma
== END | disposition home or self-care (01) ==
LOC: RADNMMAIN 09:50
PROVIDERS: ATTEND Internal Medicine
DX: E83.52 Hypercalcemia (principal)
CPT/HCPCS: 78071; A9500

== ENCOUNTER 2022-04-19 07:00 | Inpatient (IN) | payer MEDICARE ==
[2022-04-14 12:40] VITALS: BMI 35.0
[~2022-04-19 07:00] MED LIST changes: +GABAPENTIN 300 MG CAP PO PRN; -HEPARIN SODIUM,PORCINE 5,000 UNIT/ML 1 ML VIAL SQ PRN; +HYDROmorphone 0.5 MG/0.5 ML SYRINGE IVP PRN; +MELOXICAM 7.5 MG TAB PO PRN; +MIDAZOLAM 2 MG/2 ML VIAL IV PRN; -Pre Op ABX Message 1 EACH MISC MISCELLANE ONE; -SCOPOLAMINE 1.5MG/72HR PATCH TRANSDERM ONE; +TRANEXAMIC ACID IN NACL,ISO-OS 1,000 MG in SALINE 1 100ML.BAG IVPB PRN
[2022-04-19 10:29] LABS: Glucose,Whole Blood 173 mg/dL (70-110)
[2022-04-19] MEDS ORDERED: MIDAZOLAM 2 MG/2 ML VIAL IVP ONE (10:36)
[2022-04-19] MEDS ORDERED: ROPIVACAINE 0.2%-NS ON-Q PUMP 1,090 MG, EMPTY PAIN BALL 1 EACH MISCELLANE PRN (10:52)
--- NOTE | 2022-04-19 10:53 | P.ANPRN ---
Procedure Note - Anesthesia - Nerve Block Performed Right Adductor Canal Infusion Time Out Performed: Yes Date of Procedure: 04/19/22 Procedure Start Time: 10:35 Procedure Stop Time: 10:41 Location of Patient: PreOp Indication: Acute Post-Operative Pain, Analgesia, Dx/Pain Location, Requested by Surgeon Sedation Type: Sedate with meaningful contact maintained Preparation: Sterile Prep Position: Supine Catheter: Indwelling Needle Types: Pajunk Needle Gauge: 20 Ultrasound used to visualize needle placement: Yes Ultrasound used to observe medication spread: Yes Injectate: 0.5% Ropivacaine (see comment for volume) (20) Blood Aspirated: No Pain Paresthesia on Injection Noted: No Resistance on Injection: Normal Image Stored and Saved: Yes Events: Uneventful and Well Tolerated
[2022-04-19] MEDS ORDERED: LIDOCAINE 2% INJ 20 MG/ML (2 ML VIAL) ONE (11:48)
[2022-04-19] MEDS ORDERED: PHENYLEPHRINE-0.9% NACL SYG 1,000 MCG/10 ML SYRINGE ONE (11:48)
[2022-04-19] MEDS ORDERED: TRANEXAMIC ACID IN NACL,ISO-OS 1,000 MG/100 ML BAG ONE (11:48)
[2022-04-19] MEDS ORDERED: fentaNYL (PF) 50 MCG/ML 2 ML AMP ONE (11:48)
[2022-04-19] MEDS ORDERED: MIDAZOLAM 2 MG/2 ML VIAL ONE (11:48)
[2022-04-19] MEDS ORDERED: PROPOFOL 10 MG/ML 20 ML VIAL IV ONE (11:48)
[2022-04-19] MEDS ORDERED: HYDROmorphone 0.5 MG/0.5 ML SYRINGE IVP PRN ×2 (11:49)
[2022-04-19] MEDS ORDERED: NALOXONE 0.4 MG/ML 1 ML VIAL IV PRN (11:49)
[2022-04-19] MEDS ORDERED: diazePAM 5 MG TAB PO PRN (11:49)
[2022-04-19] MEDS ORDERED: ACETAMINOPHEN TAB 325 MG TAB PO PRN (11:49)
[2022-04-19] MEDS ORDERED: bisacodyL 10 MG SUPP RECTAL PRN (11:49)
[2022-04-19] MEDS ORDERED: MAGNESIUM HYDROXIDE 2,400 MG/10 ML CUP PO PRN (11:49)
[2022-04-19] MEDS ORDERED: HYDROmorphone 1 MG/ML 1 ML SYRINGE IVP PRN (11:49)
[2022-04-19] MEDS ORDERED: NA PHOS,M-B/NA PHOS,DI-BA 133 ML ENEMA RECTAL PRN (11:49)
[2022-04-19] MEDS ORDERED: ONDANSETRON 4 MG/2 ML VIAL IVP PRN (11:49)
[2022-04-19] MEDS ORDERED: TEMAZEPAM 15 MG CAP PO PRN (11:49)
[2022-04-19] MEDS ORDERED: traMADol 50 MG TAB PO PRN (11:49)
[2022-04-19] MEDS ORDERED: HYDROcodone/APAP 7.5-325MG 1 EACH TAB PO PRN (11:53)
--- NOTE | 2022-04-19 13:32 | P.OP ---
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 Anesthesia: spinal Surgeon: Richar Jean Baptiste [employer] Entertainer #1: Dino Ortiz Estimated Blood Loss (ml): 50 Pathology: other (Cultures 2) Condition: stable Disposition: PACU Indications for Procedure: This is a 66-year-old female was at a prior right total knee arthroplasty. She continues to have pain and stiffness in her workup included the possibility of a loose femoral component. After discussing the surgical nonsurgical treatment options at length, she wished to proceed with a revision of a right total knee arthroplasty and informed consent was obtained. Operative Findings: The operative findings are consistent with a loose right femoral component Description of Procedure: Patient was seen in the preoperative area consent was reviewed and operative site was marked with a skin marker. An adductor canal pain catheterand an iPACK block was placed by anesthesia in the preoperative area. Patient was then brought to the operating room and given preoperative antibiotics intravenously. A spinal anesthetic was administered by the anesthesia department. A tourniquet was placed on the upper thigh and the lower extremity was prepped and draped in usual sterile fashion. A gram of transexamic acid was given. A universal timeout was then performed which confirmed the patient's name, surgical site, ALLERGIES, and consent. The lower extremity was then exsanguinated and tourniquet was inflated to 250 mmHg. A standard and anterior midline approach to the knee was performed. The skin and subcutaneous tissue was dissected down to the patellar tendon, with the prior scar being excised. A medial parapatellar arthrotomy was then performed. A moderate amount of clear fluid was encountered, and this was cultured 2. The knee was then extended, the patellar was everted, and the knee was again flexed. The components were then inspected and grossly were found to be well fixed, but the femoral component appeared loose. The tibial poly-was then removed without incident. Attention was directed to the femur. Using a small oscillating saw, the implant cement interface was disrupted, and the femoral component was easily removed with an osteotome and a mallet. There was minimal bone loss encountered. Attention was then directed to the tibia. Again using a small oscillating saw, the implant bone interface was disrupted. The tibial component was an easily removed with an osteotome and a mallet. The undersurface of the tibial component showed very little bone ingrowth. There was moderate bone loss from the tibia. Next, the saw was then used to remove the patellar bone and as well. Attention was redirected to the femur. Sequential reaming of the femoral canal was performed until good cortical fit at 18 mm. The distal cutting guide was then placed over the reamer the distal femur cut was performed. Next the 4-in-1 cutting block was placed over the reamer and the appropriate cuts were performed. The cutting block and reamer were then removed and the femoral trial was placed. The bone was then removed for the box. Femoral trial was then removed. Attention was then redirected to the tibia. Sequential reaming of the tibial canal was performed until good cortical fit at 14 mm. The intramedullary prox imal tibial cutting guide was then placed over the reamer, the proximal tibia was cut. The tibia was sized and prepared. Trials were then placed with a 18 mm constrained liner. The knee was able to fully extend and flex to 120 and was stable throughout all range of motion. Trials were then removed. The cut surfaces of bone were then irrigated with pulsatile lavage. The knee was also irrigated with Irrisept solution. The components were then opened, the cement was mixed, and the components were then cemented in place. The cement was allowed to harden with the knee in full extension. After the cemented hardened. The tourniquet was released, and hemostasis was obtained. A second gram of transexamic acid was given. The knee was again irrigated. The knee was again taken through range of motion and found to be stable throughout all range of motion of 0-120, and the patella tracked normally. The fascia was then closed with #2 strata fix suture. The subcutaneous tissue was closed with 3-0 Vicryl and 3-0 strata fix. Exofin glue was used for the skin and placed with the knee in flexion. The patient was placed in a sterile silver dressing. Patient was then transferred to recovery room in stable condition. The cement tester assistant SHELL Hawley was required due the complexity surgery and the need for a skilled nursing surgical services director. She assisted in positioning, draping, retraction, and closure of the wound.
[2022-04-19] MEDS: LACTATED RINGERS 1,000 ML IV SCH ×3 (14:25→17:34)
--- NOTE | 2022-04-19 15:27 | XR ---
EXAMINATION TYPE: XR knee limited RT DATE OF EXAM: 04/19/2022 COMPARISON: NONE HISTORY: 66-year-old female evaluation for postoperative abnormality in alignment TECHNIQUE: 2 views FINDINGS: Images show placement of revision stemmed right total knee arthroplasty. Both distal femoral and prox imal tibial components appear well-seated without periprosthetic fracture. Alignment grossly anatomic . Scattered soft tissue air as well as intra-articular air related to recent operation. IMPRESSION: Uncomplicated, postoperative appearance to the revision, stemmed right total knee arthroplasty.
[2022-04-19 17:56] LABS: Glucose,Whole Blood 278 mg/dL (70-110)
[2022-04-19 20:21] LABS: Glucose,Whole Blood 327 mg/dL (70-110)
[2022-04-19] MEDS ORDERED: ALPRAZolam 0.5 MG TAB PO PRN (20:37)
[2022-04-19] MEDS: HYDROcodone/APAP 7.5-325MG 1 EACH TAB PO PRN (20:44)
[2022-04-19] MEDS: ASPIRIN 81 MG PO SCH (20:44)
[2022-04-19] MEDS ORDERED: INSULIN DETEMIR (LEVEMIR) 100 UNIT/ML SYR SQ SCH (21:00)
[2022-04-19] MEDS ORDERED: ursodioL 300 MG CAP PO SCH (21:00)
[2022-04-19] MEDS ORDERED: SENNOSIDES-DOCUSATE SODIUM 1 EACH TAB PO SCH (21:00)
[2022-04-19] MEDS ORDERED: ATORVASTATIN 10 MG TAB PO SCH (21:00)
[2022-04-19] MEDS: METOPROLOL TARTRATE 25 MG TAB PO SCH (21:21)
[2022-04-19] MEDS: MAGNESIUM OXIDE 400 MG TAB PO SCH (21:21)
[2022-04-19] MEDS: INSULIN ASPART (NovoLOG) 100 UNIT/ML VIAL SQ SCH (21:22)
[2022-04-19] MEDS: GLIMEPIRIDE 4 MG TAB PO SCH (21:23)
[2022-04-19] MEDS: metFORMIN 500 MG TAB PO SCH (21:23)
[2022-04-20 00:44] LABS: Glucose,Whole Blood 160 mg/dL (70-110)
[2022-04-20] MEDS: LACTATED RINGERS 1,000 ML IV SCH (03:05)
--- NOTE | 2022-04-20 06:48 | P.PN ---
Progress Note - Text Progress Note Date: 04/20/22 POD 1 FROM REVISION OF TKR, Adductor canal catheter placed for post op pain, running at 8cc/hr. Pain is OK, still having some pain posteriorly and over lateral knee. ant knee does not have pain. no lower ext weakness or numbness. able to stand. used PO and IV meds for analgesia. will be d/c with pain pump continued for 3 days. mercedes keita MD anesthesia.
[2022-04-20 07:06] LABS: Glucose,Whole Blood 122 mg/dL (70-110)
[2022-04-20] MEDS: INSULIN ASPART (NovoLOG) 100 UNIT/ML VIAL SQ SCH ×2 (07:21→12:01)
--- NOTE | 2022-04-20 07:57 | P.DS ---
Providers Date of admission: 04/19/22 09:27 Expected date of discharge: 04/20/22 Attending physician: Richar Jean Baptiste Consults: 04/19/22 11:49 Consult Physician Routine Consulting Provider: Mor Leos Reason/Comments: post op medical management Do you want consulting provider notified?: Yes Primary care physician: Mor Leos - Discharge Diagnosis(es) (1) Primary osteoarthritis of right knee Current Visit: Yes Status: Acute (2) Status post total right knee replacement Current Visit: Yes Status: Acute Hospital Course: This is a 66-year-old female who was last seen with complaint of continued right knee pain. The patient has a known history of degenerative arthritis of the right knee and presents to discuss surgical options. After discussion and consideration the patient elects to proceed with total right knee arthroplasty. The patient is seen preoperatively by her primary care physician and cleared for surgery. The patient is admitted to [facility] for total right knee arthroplasty. The procedures performed without complication or sequelae. Patient is doing well postoperatively. Vital signs are stable at discharge. Labs are stable at discharge. the patient is ambulating well with walker with minimal assistance. The patient is discharged to home on postop day #1 pending medical clearance. Please see orders and refer to the [facility] rec for accurate list of medications. Patient Condition at Discharge: Good Plan - Discharge Summary Discharge Rx Participant: Yes New Discharge Prescriptions: New Celecoxib [CeleBREX] 200 mg PO DAILY #30 capsule Ondansetron Odt [Zofran Odt] 4 mg PO Q8HR PRN #14 tab PRN Reason: Nausea Aspirin 325 mg PO BID #60 tab HYDROcodone/APAP 7.5-325MG [[place] 7.5-325] 1 - 2 tab PO Q6HR PRN #32 tab PRN Reason: Pain Sennosides-Docusate Sodium [Senokot-S] 1 tab PO BID #60 tablet No Action Metoprolol Tartrate [Lopressor] 25 mg PO BID ursodioL [Ursodiol] 600 mg PO BID ALPRAZolam [Xanax] 0.5 mg PO TID PRN PRN Reason: Anxiety Lovastatin [Mevacor] 40 mg PO HS metFORMIN HCL [Glucophage] 1,000 mg PO BID Glimepiride [Amaryl] 4 mg PO BID ursodioL [Ursodiol] 300 mg PO HS Magnesium 800 mg PO BID Pantoprazole [Protonix] 40 mg PO DAILY Iron Slow Release 1 tab PO DAILY Insulin Glargine,Hum.rec.anlog [Lantus Solostar Pen] 40 units SQ HS Discharge Medication List ALPRAZolam [Xanax] 0.5 mg PO TID PRN 08/19/20 [History] Lovastatin [Mevacor] 40 mg PO HS 08/19/20 [History] Metoprolol Tartrate [Lopressor] 25 mg PO BID 08/19/20 [History] ursodioL [Ursodiol] 600 mg PO BID 08/19/20 [History] metFORMIN HCL [Glucophage] 1,000 mg PO BID 09/07/20 [History] Glimepiride [Amaryl] 4 mg PO BID 11/12/20 [History] ursodioL [Ursodiol] 300 mg PO HS 11/21/20 [History] Magnesium 800 mg PO BID 12/31/20 [History] Insulin Glargine,Hum.rec.anlog [Lantus Solostar Pen] 40 units SQ HS 04/14/22 [History] Iron Slow Release 1 tab PO DAILY 04/14/22 [History] Pantoprazole [Protonix] 40 mg PO DAILY 04/14/22 [History] Aspirin 325 mg PO BID #60 tab 04/20/22 [Rx] Celecoxib [CeleBREX] 200 mg PO DAILY #30 capsule 04/20/22 [Rx] HYDROcodone/APAP 7.5-325MG [[place] 7.5-325] 1 - 2 tab PO Q6HR PRN #32 tab 04/20/22 [Rx] Ondansetron Odt [Zofran Odt] 4 mg PO Q8HR PRN #14 tab 04/20/22 [Rx] Sennosides-Docusate Sodium [Senokot-S] 1 tab PO BID #60 tablet 04/20/22 [Rx] Follow up Appointment(s)/Referral(s): Richar Jean Baptiste DO [Doctor of Osteopathic Medicine] - 2 Weeks Activity/Diet/Wound Care/Special Instructions: May bear wt as tolerated w walker. Keep Optifoam in place 7 days. Discharge Disposition: HOME WITH HOME HEALTH SERVICES
[2022-04-20] MEDS: HYDROcodone/APAP 7.5-325MG 1 EACH TAB PO PRN (07:58)
[2022-04-20] MEDS: MAGNESIUM OXIDE 400 MG TAB PO SCH (07:58)
[2022-04-20] MEDS: ASPIRIN 81 MG PO SCH (07:59)
[2022-04-20] MEDS: METOPROLOL TARTRATE 25 MG TAB PO SCH (07:59)
[2022-04-20] MEDS: GLIMEPIRIDE 4 MG TAB PO SCH (07:59)
[2022-04-20] MEDS: metFORMIN 500 MG TAB PO SCH (07:59)
[2022-04-20 08:15] VITALS: BP 139/70; PULSE 73; RESP 18; TEMP 98.1
[2022-04-20] MEDS ORDERED: PANTOPRAZOLE 40 MG TABLET PO SCH (09:00)
[2022-04-20 09:05] LABS: Basophils # (A) 0.02 X 10*3/uL (0.00-0.10); Basophils % (A) 0.3 %; Eosinophils # (A) 0.03 X 10*3/uL (0.04-0.35); Eosinophils % (A) 0.4 %; HCT 29.7 % (37.2-46.3); HGB 9.3 g/dL (12.0-15.0); Immature Grans, Automated 0.3 %; Lymphocytes # (A) 1.85 X 10*3/uL (0.90-5.00); Lymphocytes % (A) 27.2 %; MCH 28.7 pg (27.0-32.0); MCHC 31.3 g/dL (32.0-37.0); MCV 91.7 fL (80.0-97.0); Mean Platelet Volume 11.7 fL (9.5-12.2); Monocytes # (A) 0.77 X 10*3/uL (0.20-1.00); Monocytes % (A) 11.3 %; NRBC Per 100 WBC 0 /100 WBCS (0.0-0.0); Neutrophils # (A) 4.11 X 10*3/uL (1.80-7.70); Neutrophils % (A) 60.5 %; Platelet Count 146 X 10*3/uL (140-440); RBC 3.24 X 10*6/uL (4.10-5.20); RDW 13.2 % (11.5-14.5)
[2022-04-20 10:59] LABS: Glucose,Whole Blood 290 mg/dL (70-110)
[2022-04-20] MEDS ORDERED: MULTIVITAMINS, THERA 1 EACH TAB PO SCH (12:00)
== END 2022-04-20 13:09 | disposition home health service (06) | DRG 468 ==
LOC: EDSTATUS 09:10 → 2ORMAIN 09:27 → 4SSUR 17:13
PROVIDERS: ADMIT Orthopaedic Surgery; ATTEND Orthopaedic Surgery
PROC: 0SRC069 Replacement of Right Knee Joint with Oxidized Zirconium on Polyethylene Synthetic Substitute, Cemented, Open Approach (ICD-10-PCS; 2022-04-19)
PROC: 0SPC0JZ Removal of Synthetic Substitute from Right Knee Joint, Open Approach (ICD-10-PCS; principal; 2022-04-19 11:20)
DX: T84.032A Mechanical loosening of internal right knee prosthetic joint, initial encounter (principal); Y79.2 Prosthetic and other implants, materials and accessory orthopedic devices associated with adverse incidents; T84.84XA Pain due to internal orthopedic prosthetic devices, implants and grafts, initial encounter; I10 Essential (primary) hypertension; E11.9 Type 2 diabetes mellitus without complications; Z85.3 Personal history of malignant neoplasm of breast; Z96.651 Presence of right artificial knee joint; Z79.84 Long term (current) use of oral hypoglycemic drugs; Z79.1 Long term (current) use of non-steroidal anti-inflammatories (NSAID); Z79.82 Long term (current) use of aspirin; Z79.4 Long term (current) use of insulin; Z79.899 Other long term (current) drug therapy
CPT/HCPCS: 64448; 76942; 85025; 87070; 87075; 87205

== ENCOUNTER → 2022-06-23 | Outpatient (CLI) | payer MEDICARE ==
--- NOTE | 2022-06-23 10:33 | XR ---
EXAMINATION TYPE: XR chest 2V DATE OF EXAM: 06/23/2022 COMPARISON: Chest CT June 10, 2020 HISTORY: Hypercalcemia. TECHNIQUE: Frontal and lateral views of the chest are obtained. FINDINGS: There is no focal air space opacity, pleural effusion, or pneumothorax seen. The cardiac silhouette size is within normal limits. The osseous structures are intact. Surgical clips overlie the left breast. Cholecystectomy clips noted on lateral view. IMPRESSION: No acute cardiopulmonary process.
== END | disposition home or self-care (01) ==
LOC: RADXRMAIN 10:14
PROVIDERS: ATTEND Internal Medicine
DX: E83.52 Hypercalcemia (principal)
CPT/HCPCS: 71046

== ENCOUNTER → 2022-08-09 | Outpatient (CLI) | payer MEDICARE ==
--- NOTE | 2022-08-09 15:02 | MM ---
Reason for Exam: Hx of breast cancer, conservation therapy. Last screening mammogram was performed 12 month(s) ago. Patient History: Menarche at age 14. First Full-Term at age 21. Left ovary removed at age 41. Right ovary removed at age 41. Hysterectomy at age 41. Postmenopausal. Breast cancer, left, age 65. Previous chest radiation therapy at age 65. Previous chemotherapy at age 65. Estrogen for 18 years from age 41 until age 59. 09/09/2020, Lumpectomy on the Left side. 09/09/2020, Malignant Core Biopsy on the left side. 08/26/2020, Malignant Core Biopsy on the left side. Prior Study Comparison: 05/22/1995 Screening Mammogram, Unknown. 05/08/2018 Bilateral Screening Mammogram, [facility]. 07/24/2020 Bilateral Screening Mammogram, [facility]. 08/26/2020 Left Diagnostic Mammogram, [facility]. 07/26/2021 Bilateral Diagnostic Mammogram, [facility]. 02/01/2022 Left Diagnostic Mammogram, [facility]. Tissue Density: There are scattered fibroglandular densities. Findings: Analyzed By CAD. Cutaneous nodule far posterior medial right breast. If any suspicious enlarging skin lesion, consider dermatology evaluation. Areas of asymmetric density within the right breast appear unchanged when compared to various prior exams. A few scattered benign dialysis calcifications on both sides. Postsurgical and posttreatment changes throughout the left breast. No significant change from prior exams. Overall Assessment: Benign, BI-RAD 2 Management: Diagnostic Mammogram of both breasts in 1 year. A cutaneous nodule posterior medial right breast. Correlate with direct inspection. If any enlarging skin lesion, consider dermatology evaluation. Otherwise, patient should continue monthly self breast exams. Results were given to the patient verbally at the time of exam. Electronically signed and approved by: José Miguel Newman M.D. Radiologist
--- NOTE | 2022-08-09 15:02 | MM ---
Reason for Exam: Hx of breast cancer, conservation therapy. Last screening mammogram was performed 12 month(s) ago. Patient History: Menarche at age 14. First Full-Term at age 21. Left ovary removed at age 41. Right ovary removed at age 41. Hysterectomy at age 41. Postmenopausal. Breast cancer, left, age 65. Previous chest radiation therapy at age 65. Previous chemotherapy at age 65. Estrogen for 18 years from age 41 until age 59. 09/09/2020, Lumpectomy on the Left side. 09/09/2020, Malignant Core Biopsy on the left side. 08/26/2020, Malignant Core Biopsy on the left side. Prior Study Comparison: 05/22/1995 Screening Mammogram, Unknown. 05/08/2018 Bilateral Screening Mammogram, [facility]. 07/24/2020 Bilateral Screening Mammogram, [facility]. 08/26/2020 Left Diagnostic Mammogram, [facility]. 07/26/2021 Bilateral Diagnostic Mammogram, [facility]. 02/01/2022 Left Diagnostic Mammogram, [facility]. Tissue Density: There are scattered fibroglandular densities. Findings: Analyzed By CAD. Cutaneous nodule far posterior medial right breast. If any suspicious enlarging skin lesion, consider dermatology evaluation. Areas of asymmetric density within the right breast appear unchanged when compared to various prior exams. A few scattered benign dialysis calcifications on both sides. Postsurgical and posttreatment changes throughout the left breast. No significant change from prior exams. Overall Assessment: Benign, BI-RAD 2 Management: Diagnostic Mammogram of both breasts in 1 year. A cutaneous nodule posterior medial right breast. Correlate with direct inspection. If any enlarging skin lesion, consider dermatology evaluation. Otherwise, patient should continue monthly self breast exams. Results were given to the patient verbally at the time of exam. Electronically signed and approved by: José Miguel Newman M.D. Radiologist
== END | disposition home or self-care (01) ==
LOC: RADMAMWWP 14:17
PROVIDERS: ATTEND Internal Medicine Hematology & Oncology
DX: C50.412 Malignant neoplasm of upper-outer quadrant of left female breast (principal); Z78.0 Asymptomatic menopausal state; Z85.3 Personal history of malignant neoplasm of breast; Z90.721 Acquired absence of ovaries, unilateral; Z92.3 Personal history of irradiation
CPT/HCPCS: 77066; G0279; 77062

== ENCOUNTER → 2022-08-12 | Outpatient (CLI) | payer MEDICARE ==
--- NOTE | 2022-08-12 15:03 | CT ---
EXAMINATION TYPE: CT chest wo con DATE OF EXAM: 08/12/2022 COMPARISON: 06/10/2020 HISTORY: 67-year-old female D8 6.9, unspecified sarcoidosis. TECHNIQUE: Contiguous axial scanning of the chest without IV contrast. Coronal and sagittal reconstru ctions performed. CT DLP: 583 mGycm Automated exposure control for dose reduction was used. FINDINGS: The heart is normal size without pericardial effusion. Mild LAD coronary artery calcifications are pr esent. Postsurgical and posttreatment change noted left breast. Borderline aneurysm ascending aorta 4.0 cm. 3.9 cm, previously. There is conventional arch vessel bra nching anatomy. Underlying 2.0 cm hypodense nodule left lobe of the thyroid gland previously measured at 1.6 cm. Nicole elate with thyroid ultrasound evaluation. No thoracic lymphadenopathy by CT size criteria. Biapical pleural-parenchymal scarring. No consolidation or pleural effusion. Tiny 4 mm pulmonary nodule, axial image 53 is unchanged. Cholecystectomy clips in the upper abdomen. Calcified granuloma in the spleen. Spleen upper limits of normal in size at 13.3 cm. A couple prominent gastrohepatic ligament lymph nodes measuring up to 1.2 cm are unchanged. Bones: Accentuated midthoracic kyphosis. DISH in the lower thoracic spine. IMPRESSION: 1. BIAPICAL PLEURAL PARENCHYMAL SCARRING. A PROMINENT UPPER ABDOMINAL LYMPH NODE MEASURING 1.2 CM REM AINS UNCHANGED AND MAY BE SECONDARY TO THE PATIENT'S SARCOIDOSIS. NO THORACIC LYMPHADENOPATHY OR OTHE R SUSPICIOUS PARENCHYMAL CHANGES SEEN. 2. MILD ANEURYSM ASCENDING AORTA 4.0 CM VERSUS 3.9 CM ON 06/10/2020. 3. A 2.0 CM NODULE OF THE LEFT LOBE OF THE THYROID GLAND PREVIOUSLY MEASURED 1.6 CM. RECOMMEND FURTHE R THYROID ULTRASOUND EVALUATION TO DETERMINE THE NEED FOR FNA.
== END | disposition home or self-care (01) ==
LOC: RADCTMAIN 10:51
PROVIDERS: ATTEND Internal Medicine Critical Care Medicine
DX: D86.9 Sarcoidosis, unspecified (principal)
CPT/HCPCS: 71250

== ENCOUNTER → 2022-08-18 | Outpatient (CLI) | payer MEDICARE ==
[2022-08-18 13:20] LABS: Cancer Antigen 153 7.2 U/mL (0.0-32.3); Chol/HDL Ratio 2.46 Ratio; LDL Cholesterol,Calculated 68.6 mg/dL (0.0-131.0)
== END | disposition home or self-care (01) ==
LOC: LABWHC1 07:17
PROVIDERS: ATTEND Internal Medicine Hematology & Oncology
DX: C50.412 Malignant neoplasm of upper-outer quadrant of left female breast (principal); E11.9 Type 2 diabetes mellitus without complications; D64.81 Anemia due to antineoplastic chemotherapy; R11.0 Nausea; E78.5 Hyperlipidemia, unspecified
CPT/HCPCS: 36415; 80061; 83036; 86300

== ENCOUNTER → 2022-08-22 | Outpatient (CLI) | payer MEDICARE ==
--- NOTE | 2022-08-22 18:27 | US ---
EXAMINATION TYPE: US thyroid st tissue head/neck DATE OF EXAM: 08/22/2022 COMPARISON: None CLINICAL HISTORY: 67-year-old female E04.1 Thyroid nodule. TECHNIQUE: Multiple sonographic images are reviewed. FINDINGS: GLAND SIZE: Right Lobe: 4.4 x 1.4 x 1.7 cm Overall Parenchyma: homogeneous Left Lobe:4.6 x 1.9 x 2.4 cm Overall Parenchyma: homogeneous Isthmus Thickness: 0.2 cm NODULES RIGHT: # of nodules measured on right: 2 1. 0.6 X 0.4 x 0.5 cm, mid, mixed cystic and solid, primarily solid, isoechoic TR 3 nodule, which i s wider than tall, with smooth margins, without echogenic foci. 2. 0.7 X 0.4 x 0.6 cm, lower , mixed cystic and solid, primarily solid, hypoechoic TR 4 nodule, whi ch is wider than tall, with smooth margins, without echogenic foci. LEFT: # of nodules measured on left: 1. 3.0 x 1.8 x 2.0 cm, mid solid or almost completely solid, hypoechoic TR 4 nodule, which is wider than tall, with lobulated or irregular margins, without echogenic foci. ISTHMUS: # of nodules measured in the isthmus: 0 Bilateral neck scanned, no evidence of lymphadenopathy. IMPRESSION: 1. Large 3.0 cm solid TR4 nodule in the left lobe. FNA recommended. 2. A couple subcentimeter nodules on the right measuring up to 7 mm. The largest is a TR4 nodule that can be reassessed at follow-up.
== END | disposition home or self-care (01) ==
LOC: RADUSWWP 12:10
PROVIDERS: ATTEND Internal Medicine Critical Care Medicine
DX: E04.2 Nontoxic multinodular goiter (principal)
CPT/HCPCS: 76536

== ENCOUNTER → 2023-03-21 | Outpatient (CLI) | payer MEDICARE ==
[2023-03-21 15:54] LABS: Chol/HDL Ratio 2.26 Ratio; LDL Cholesterol,Calculated 64.1 mg/dL (0.0-131.0)
== END | disposition home or self-care (01) ==
LOC: LABWHC1 09:05
PROVIDERS: ATTEND Family Medicine
DX: E78.00 Pure hypercholesterolemia, unspecified (principal)
CPT/HCPCS: 36415; 80061

== ENCOUNTER → 2023-03-21 | Outpatient (CLI) | payer MEDICARE ==
[2023-03-21 08:56] LABS: Partial Thromboplastin Time 23.5 sec (22.0-30.0); Prothrombin Time 10.2 sec (9.0-12.0)
[2023-03-21 10:59] LABS: HCT 36.4 % (37.2-46.3); HGB 11.8 g/dL (12.0-15.0); MCH 30.7 pg (27.0-32.0); MCHC 32.4 g/dL (32.0-37.0); MCV 94.8 fL (80.0-97.0); Mean Platelet Volume 10.9 fL (9.5-12.2); NRBC Per 100 WBC 0 /100 WBCS (0.0-0.0); Platelet Count 184 X 10*3/uL (140-440); RBC 3.84 X 10*6/uL (4.10-5.20); RDW 12.6 % (11.5-14.5); WBC 4.23 X 10*3/uL (4.50-10.00)
[2023-03-21 11:06] LABS: Albumin 4.3 g/dL (3.8-4.9); Albumin/Globulin Ratio 1.79 (1.60-3.17); Anion Gap 12.1 mmol/L (10.00-18.00); Blood Urea Nitrogen 20.9 mg/dL (9.0-27.0); Calcium 10.1 mg/dL (8.7-10.3); Carbon Dioxide 27.9 mmol/L (20.0-27.5); Globulin 2.4 g/dL (1.6-3.3); Non-African American GFR(CKD) 52.6 (60.0-200.0); Potassium 4.3 mmol/L (3.5-5.5); Total Bilirubin 0.5 mg/dL (0.30-1.20); Total Protein 6.7 g/dL (6.2-8.2)
[2023-03-21 11:38] LABS: Appearance,Urine Clear (Clear); Bilirubin,Urine Negative (Negative); Blood,Urine Negative (Negative); Color,Urine Yellow (Yellow); Ketones,Urine Trace mg/dL (Negative); Nitrite,Urine Negative (Negative); PH, Urine 5.5 (5.0-8.0); Specific Gravity,Urine 1.023 (1.001-1.030); Urobilinogen,Urine 0.2 (0.2,1.0)
[2023-03-21 11:43] LABS: Bacteria,Urine None Seen /HPF (None Seen)
== END | disposition home or self-care (01) ==
LOC: LABWHC1 07:07 → LABPAT 07:07
PROVIDERS: ATTEND Orthopaedic Surgery
DX: Z01.812 Encounter for preprocedural laboratory examination (principal); M17.12 Unilateral primary osteoarthritis, left knee; E78.00 Pure hypercholesterolemia, unspecified
CPT/HCPCS: 36415; 80053; 81001; 85027; 85610; 85730; 87070

== ENCOUNTER 2023-04-18 09:16 | Day surgery (SDC) | payer MEDICARE ==
[~2023-04-18 09:16] MED LIST changes: -ACETAMINOPHEN TAB 500 MG TAB PO PRN; -GABAPENTIN 300 MG CAP PO PRN; -LACTATED RINGERS 1,000 ML IV SCH; -MELOXICAM 7.5 MG TAB PO PRN; -TRANEXAMIC ACID IN NACL,ISO-OS 1,000 MG in SALINE 1 100ML.BAG IVPB PRN
[2023-04-18] MEDS ORDERED: TRANEXAMIC 1,000 MG/100ML-NACL 1,000 MG in SALINE 1 100ML.BAG IVPB PRN (09:35)
[2023-04-18] MEDS: LACTATED RINGERS 1,000 ML IV SCH (09:53)
[2023-04-18 10:17] LABS: Glucose,Whole Blood 153 mg/dL (70-110)
[2023-04-18] MEDS ORDERED: MIDAZOLAM 2 MG/2 ML VIAL IVP ONE (10:41)
[2023-04-18] MEDS ORDERED: fentaNYL (PF) 50 MCG/ML 2 ML AMP IVP ONE (10:41)
[2023-04-18] MEDS ORDERED: MAGNESIUM HYDROXIDE 2,400 MG/30 ML CUP PO PRN (11:14)
[2023-04-18] MEDS ORDERED: NALOXONE 0.4 MG/ML 1 ML VIAL IV PRN (11:14)
[2023-04-18] MEDS ORDERED: hydrOXYzine pamoate 25 MG CAP PO PRN (11:14)
[2023-04-18] MEDS ORDERED: ONDANSETRON 4 MG/2 ML VIAL IVP PRN (11:14)
[2023-04-18] MEDS ORDERED: HYDROmorphone 0.5 MG/0.5 ML SYRINGE IVP PRN ×2 (11:14)
[2023-04-18] MEDS ORDERED: bisacodyL 10 MG SUPP RECTAL PRN (11:14)
[2023-04-18] MEDS ORDERED: NA PHOS,M-B/NA PHOS,DI-BA 133 ML ENEMA RECTAL PRN (11:14)
[2023-04-18] MEDS ORDERED: HYDROcodone/APAP 7.5-325MG 1 EACH TAB PO PRN (11:19)
[2023-04-18] MEDS ORDERED: ACETAMINOPHEN TAB 500 MG TAB ONE (11:22)
[2023-04-18] MEDS ORDERED: ACETAMINOPHEN TAB 500 MG TAB PO ONE (11:23)
[2023-04-18] MEDS ORDERED: MELOXICAM 7.5 MG TAB PO ONE (11:23)
[2023-04-18] MEDS ORDERED: GABAPENTIN 300 MG CAP PO ONE (11:24)
[2023-04-18] MEDS ORDERED: PROPOFOL 10 MG/ML 20 ML VIAL IV ONE (11:28)
[2023-04-18] MEDS ORDERED: ROPIVACAINE 5 MG/ML 30 ML VIAL ONE (11:28)
[2023-04-18] MEDS ORDERED: PHENYLEPHRINE-0.9% NACL SYG 1,000 MCG/10 ML SYRINGE ONE (11:28)
[2023-04-18] MEDS ORDERED: SODIUM CHLORIDE 0.9% (PF) 10 ML VIAL ONE (11:28)
[2023-04-18] MEDS ORDERED: GLYCOPYRROLATE 0.2 MG/ML 2 ML VIAL ONE (11:28)
[2023-04-18] MEDS ORDERED: TRANEXAMIC 1,000 MG/100ML-NACL PREMIX BAG ONE (11:28)
[2023-04-18] MEDS ORDERED: MIDAZOLAM 2 MG/2 ML VIAL ONE (11:28)
[2023-04-18] MEDS ORDERED: fentaNYL (PF) 50 MCG/ML 2 ML AMP ONE (11:28)
[2023-04-18] MEDS ORDERED: ceFAZolin 1,000 MG in SODIUM CHLORIDE 0.9% 1,000 ML IRRIGATION ONE (11:32)
--- NOTE | 2023-04-18 12:41 | P.OP ---
Date of Procedure: 04/18/23 Preoperative Diagnosis: Severe osteoarthritis left knee Postoperative Diagnosis: Severe osteoarthritis left knee Procedure(s) Performed: Left total knee arthroplasty Implants: [employer] Journey II CR Oxinium cruciate retaining femoral component size 5, left [employer] Journey nonporous tibial baseplate size 4, left [employer] Journey II, XLPE Deep Dished articular insert, size 11 mm, Size 3-4, left [employer] Tina II resurfacing patellar component, oval, 29 mm All components were cemented using Palacos R bone cement The articulation is Oxinium on polyethylene Anesthesia: spinal Surgeon: Richar Jean Baptiste Computer [employer] System Markup Clerk #1: Tory Thomas Estimated Blood Loss (ml): 30 Pathology: none sent Condition: stable Disposition: PACU Indications for Procedure: The patient's knee is end-stage, and conservative management has failed. The operation of knee replacement has been discussed at length in the office, as well as potential risks and complications. These are inclusive of, but not limited to: Infection, bleeding, scarring, discomfort, stiffness, blood vessel and nerve damage, need for further surgery, failure to relieve symptoms, persistence, recurrence, or worsening of problems, loosening, dislocation, wear, blood clot, pulmonary embolism, , gait dysfunction, stiffness, and other risks as discussed in the office. Patient elects to proceed and the consent form has been signed. Operative Findings: The operative findings are consistent with severe osteoarthritis of the left knee Description of Procedure: The patient was seen in the preoperative area, the consent was reviewed and the operative site was marked with a skin marker. The patient verified the procedure and the operative site. An adductor canal pain catheter and an iPACK block were placed by anesthesia in the preoperative area. The patient was then brought to the operating room and positioned on the operating room table in the supine position. Preoperative antibiotics and a gram of tranexamic acid were given intravenously. A spinal anesthetic was administered by the anesthesia department. Care was taken to make sure that all pressure points were adequately padded. A tourniquet was placed on the upper thigh and the lower extremity was prepped with ChloraPrep and draped in usual sterile fashion. A universal time-out was then performed which confirmed the patient's name, surgical site, ALLERGIES, and consent. The lower extremity was then exsanguinated and tourniquet was inflated to 250 mmHg. A standard anterior midline approach to the knee was performed. The skin and subcutaneous tissue were sharply dissected down to the patellar tendon. A medial parapatellar arthrotomy was then performed. The knee was then extended, the patellar was everted, and the knee was flexed. The infra-patellar fat pad was removed in order to enhance exposure. The anterior horns of both menisci were excised, and a release was performed to the posterior medial aspect of the knee. On gross visual inspection, there was complete loss of articular cartilage in the medial and patellofemoral joint spaces. There was also significant cartilage damage in the lateral compartment. There were multiple periarticular osteophytes globally about the knee which were then removed with a Ronguer. The femoral canal was then opened with the 9.5 mm intramedullary drill. The 8 mm intramedullary rosa was then inserted into the femoral canal with the distal femoral cutting guide set for 5 of valgus. The distal femoral cutting block was then pinned in place. The intramedullary rosa was then removed, and the distal femur was then cut. The cutting block was then removed and the cut was checked for symmetry. The resected bone was then measured to confirm the appropriate distal femoral resection. Next, the sizing guide was then placed and set for 3 external rotation based off of the epicondylar axis and Waverly's line. Pins were then placed and the drill holes, and the femur was sized with the sizing stylus. The pins were then removed, and the sizing guide was then removed. The spikes of the appropriate size femoral block was then placed into the predrilled holes, and malleted into place. Two 45 mm pins were then placed into the fixation holes on the cutting block. An ronaldo wing was then used to ensure there would be no notching with the anterior cut. The anterior condyles were cut without notching. The anterior chord cut was then performed, followed by the posterior cut, posterior chamfer cut, and the anterior chamfer cut. The collateral ligaments were protected during the entire process. The cutting block was then removed. Any remaining bone and osteophytes were removed from the femur with a Ronguer. Attention was then directed to the tibia. The remaining ACL was removed with a Ronguer, and the tibia was then gently subluxed forward with a large bent knee retractor. Any remaining menisci were excised. The posterior lateral corner was cauterized in order to coagulate the lateral geniculate artery. The extra medullary tibial cutting guide was then placed, set for the appropriate rotation, slope, and depth of resection. The proximal tibia cutting guide was then pinned in place. Proximal tibia was then cut and sized. A curved osteotome was then used to remove any posterior osteophytes from the distal femur. The femoral trial was placed. A narrow saw blade was then used to remove the anterior intracondylar femoral bone. The CR notch trial was then placed. The tibial trial was placed with the appropriate-sized insert. The knee was able to fully extend and flex to 130 and was stable throughout all range of motion. The knee was then extended and the patella was everted. Patella was then measured, and then using an osteotomy guide, the patella was cut at the appropriate level. The patellar component was sized. The patellar drill guide was placed and the patella was drilled. The patella trial was then placed. The knee was then taken through range of motion with the patella trial and the patella tracked normally using the no thumbs technique. The patella trial was then removed. The knee was then flexed and lug holes were drilled through the femoral trial and the femoral trial was then removed. The tibial was then re- exposed, and the tibial broach guide was then pinned in place after it was set for the appropriate rotation to allow for the most coverage without overhang. The tibia was then reamed and broached. The femoral canal was plugged with autologous bone. The cut surfaces of bone were then irrigated with pulsatile lavage. The knee was also irrigated with Irrisept solution. The components were then opened, the cement was mixed. Cement was placed on the backside of the femoral, tibial, and patellar components. Cement was then applied to the tibial surface and pressurized into the surface using finger pressurization technique. The tibial component was then applied and excess cement was removed after it was impacted securely noted to be flush with the cut surface. In similar fashion, the cement was applied to the cut femoral surface, pressur ized and using finger pressurization the component was impacted in place. Excess cement was removed. The polyethylene spacer was then implanted and locked into position. Patellar component was then applied in a similar technique and the patellar clamp was used to hold patella in place while the cement hardened. The knee was held in full extension while the cement hardened. Once the cement had fully hardened, the knee was reinspected. Any other cement extrusion was removed the final range of motion testing showed range of motion from 0-130 with excellent stability, both medial and laterally and appropriate alignment of the leg. Patella tracked normally. After the cemented hardened, the tourniquet was released and hemostasis was obtained. A second gram of transexamic acid was given intravenously. The knee was again irrigated. The knee was again taken through range of motion and found to be stable throughout all range of motion of 0-130, and the patella tracked normally. The fascia was then closed with 0 Vicryl followed by #2 strata fix suture. The subcutaneous tissue was closed with 3-0 Vicryl and 3-0 strata fix. Exofin glue was used for the skin and placed with the knee in flexion. After the glue had dried, and Optafoam silver impregnated dressing was applied. A lightly compressive dressing was applied using web roll and Maurice wrap. Patient was then transferred to the stretcher and taken to recovery room in stable condition. Sponge and needle counts were correct. The data assistant SHELL Barajas was required due the complexity surgery and the need for a skilled medication assistant. She assisted in positioning, draping, retraction, and closure of the wound.
--- NOTE | 2023-04-18 12:43 | P.ANPRN ---
Procedure Note - Anesthesia - Nerve Block Performed Left iPack Single Time Out Performed: Yes Date of Procedure: 04/18/23 Procedure Start Time: 10:40 Procedure Stop Time: 10:44 Location of Patient: PreOp Indication: Acute Post-Operative Pain, Requested by Surgeon Sedation Type: Sedate with meaningful contact maintained Preparation: Sterile Prep Position: Supine Needle Types: Pajunk Needle Gauge: 21 Ultrasound used to visualize needle placement: Yes Ultrasound used to observe medication spread: Yes Injectate: Other (see comment) (0.25% Ropivicaine 20 ml) Blood Aspirated: No Pain Paresthesia on Injection Noted: No Resistance on Injection: Normal Image Stored and Saved: Yes Events: Uneventful and Well Tolerated
--- NOTE | 2023-04-18 12:44 | P.ANPRN ---
Procedure Note - Anesthesia - Nerve Block Performed Left Adductor Canal Infusion Time Out Performed: Yes Date of Procedure: 04/18/23 Procedure Start Time: 10:52 Procedure Stop Time: 11:08 Location of Patient: PreOp Indication: Acute Post-Operative Pain, Requested by Surgeon Sedation Type: Sedate with meaningful contact maintained Preparation: Sterile Prep, Sterile Dressing Position: Supine Catheter Depth at Skin (cm): 9 Catheter: Indwelling Needle Types: On-Q Needle Gauge: 20 Ultrasound used to visualize needle placement: Yes Ultrasound used to observe medication spread: Yes Injectate: Other (see comment) (0.25%Rop[ivicaine 20 ml for block and catheter confirmation) Blood Aspirated: No Pain Paresthesia on Injection Noted: No Resistance on Injection: Normal Image Stored and Saved: Yes Events: Uneventful and Well Tolerated
[2023-04-18] MEDS ORDERED: LACTATED RINGERS 1,000 ML IV ONE (12:53)
[2023-04-18] MEDS ORDERED: ROPIVACAINE 1,100 MG, SODIUM CHLORIDE 0.9% 500 ML 330 ML, EMPTY PAIN BALL 1 EACH MISCELLANE PRN ×2 (13:28)
--- NOTE | 2023-04-18 13:42 | XR ---
EXAMINATION TYPE: XR knee limited LT DATE OF EXAM: 04/18/2023 1:37 PM INDICATION: Patient age:Female; 67 years old; Reason for study: Evaluation for Postop abnormality and alignment; COMPARISON: None. TECHNIQUE: The Left knee(s) was examined in Frontal, lateral projections. FINDINGS: Status post total knee arthroplasty changes with hardware in appropriate alignment and in tact. No evidence of fracture. Subcutaneous lucencies and lucencies within the joint consistent with surgical changes. IMPRESSION: Status post total knee arthroplasty changes with hardware intact and appropriate alignment. No fractu res identified.
[2023-04-18] MEDS: HYDROmorphone 0.5 MG/0.5 ML SYRINGE IVP PRN ×2 (14:58→20:11)
[2023-04-18] MEDS: SODIUM CHLORIDE 0.9% 1,000 ML IV SCH (15:00)
[2023-04-18] MEDS: HYDROcodone/APAP 7.5-325MG 1 EACH TAB PO PRN (16:08)
[2023-04-18 16:43] LABS: Glucose,Whole Blood 301 mg/dL (70-110)
[2023-04-18] MEDS: metFORMIN 500 MG TAB PO SCH (18:02)
[2023-04-18 20:59] LABS: Glucose,Whole Blood 232 mg/dL (70-110)
[2023-04-18] MEDS ORDERED: INSULIN DETEMIR (LEVEMIR) 100 UNIT/ML SYR SQ SCH (21:00)
[2023-04-18] MEDS ORDERED: FERROUS SULFATE 325 MG TAB PO SCH (21:00)
[2023-04-18] MEDS ORDERED: ATORVASTATIN 10 MG TAB PO SCH (21:00)
[2023-04-18] MEDS ORDERED: SENNOSIDES-DOCUSATE SODIUM 1 EACH TAB PO SCH (21:00)
[2023-04-18] MEDS: ASPIRIN 81 MG PO SCH (21:26)
[2023-04-18] MEDS: METOPROLOL TARTRATE 25 MG TAB PO SCH (21:26)
[2023-04-19] MEDS: SODIUM CHLORIDE 0.9% 1,000 ML IV SCH (00:02)
[2023-04-19] MEDS: LACTATED RINGERS 1,000 ML IV SCH (00:03)
[2023-04-19 06:09] LABS: Glucose,Whole Blood 129 mg/dL (70-110)
[2023-04-19] MEDS: HYDROcodone/APAP 7.5-325MG 1 EACH TAB PO PRN (06:18)
--- NOTE | 2023-04-19 06:31 | P.PN ---
Progress Note - Text Progress Note Date: 04/19/23 Postoperative day # 1 status post total knee arthroplasty, and adductor canal catheter placed for postoperative analgesia, currently at ropivacaine 0.2% 8 mL per hour and continuous infusion, visual analogue scale is 4-5/10, patient using oral pain medication for breakthrough pain. Assessment and plan= Acute postoperative pain, adductor canal catheter for pain control, pain is well controlled we'll continue the same management.
[2023-04-19] MEDS: ASPIRIN 81 MG PO SCH (07:30)
[2023-04-19] MEDS: metFORMIN 500 MG TAB PO SCH (07:30)
[2023-04-19] MEDS: METOPROLOL TARTRATE 25 MG TAB PO SCH (07:32)
--- NOTE | 2023-04-19 07:40 | P.DS ---
Providers Expected date of discharge: 04/19/23 Attending physician: Richar Jean Baptiste Consults: 04/18/23 11:14 Consult Physician Routine Consulting Provider: Mor Leos Consult Reason/Comments: medical management Do you want consulting provider notified?: Yes Primary care physician: Arlin Figueroa - Discharge Diagnosis(es) (1) Primary localized osteoarthritis of left knee Current Visit: Yes Status: Acute (2) Status post total left knee replacement Current Visit: Yes Status: Acute Hospital Course: This is a 67-year-old female who was last seen with complaint of continued left knee pain. The patient has a known history of degenerative arthritis of the left knee and presents to discuss surgical options. After discussion and consideration the patient elects to proceed with total left knee arthroplasty. The patient is seen preoperatively by her primary care physician and cleared for surgery. The patient is admitted to [facility] for total left knee arthroplasty. The procedure is performed without complication or sequelae. He is doing well postoperatively. Vital signs are stable at discharge. Labs are stable at discharge. the patient is ambulating well with walker with minimal assistance. The patient is discharged to home on postop day #1 pending medical clearance. Please see orders and refer to the med rec for accurate list of medications. Patient Condition at Discharge: Good Plan - Discharge Summary Discharge Rx Participant: Yes New Discharge Prescriptions: New HYDROcodone/APAP 7.5-325MG [Bol[place] 7.5-325] 1 - 2 tab PO Q6H PRN #32 tab PRN Reason: Pain Aspirin [Adult Low Dose Aspirin EC] 81 mg PO BID 30 Days #60 tab Sennosides [Senokot] 2 tab PO DAILY PRN #60 tablet PRN Reason: Constipation No Action Metoprolol Tartrate [Lopressor] 25 mg PO BID ursodioL [Ursodiol] 600 mg PO BID ALPRAZolam [Xanax] 0.25 mg PO TID PRN PRN Reason: Anxiety Lovastatin [Mevacor] 40 mg PO HS metFORMIN HCL [Glucophage] 1,000 mg PO BID-W/MEALS ursodioL [Ursodiol] 300 mg PO HS Magnesium 800 mg PO BID Pantoprazole [Protonix] 40 mg PO QAM Multivitamin/Iron/Folic Acid [Centrum Adults Tablet] 1 tab PO QAM Insulin Glargine,Hum.rec.anlog [Lantus Solostar Pen] 55 units SQ HS Sertraline [Zoloft] 25 mg PO QAM Letrozole [Femara] 2.5 mg PO QAM Pioglitazone [Actos] 30 mg PO QAM Losartan [Cozaar] 25 mg PO QAM Ferrous Sulfate [Iron (65 MG Elemental)] 1 tab PO HS Discharge Medication List ALPRAZolam [Xanax] 0.25 mg PO TID PRN 08/19/20 [History] Lovastatin [Mevacor] 40 mg PO HS 08/19/20 [History] Metoprolol Tartrate [Lopressor] 25 mg PO BID 08/19/20 [History] ursodioL [Ursodiol] 600 mg PO BID 08/19/20 [History] metFORMIN HCL [Glucophage] 1,000 mg PO BID-W/MEALS 09/07/20 [History] ursodioL [Ursodiol] 300 mg PO HS 11/21/20 [History] Magnesium 800 mg PO BID 12/31/20 [History] Insulin Glargine,Hum.rec.anlog [Lantus Solostar Pen] 55 units SQ HS 04/14/22 [History] Pantoprazole [Protonix] 40 mg PO QAM 04/14/22 [History] Ferrous Sulfate [Iron (65 MG Elemental)] 1 tab PO HS 04/13/23 [History] Letrozole [Femara] 2.5 mg PO QAM 04/13/23 [History] Losartan [Cozaar] 25 mg PO QAM 04/13/23 [History] Multivitamin/Iron/Folic Acid [Centrum Adults Tablet] 1 tab PO QAM 04/13/23 [History] Pioglitazone [Actos] 30 mg PO QAM 04/13/23 [History] Sertraline [Zoloft] 25 mg PO QAM 04/13/23 [History] Aspirin [Adult Low Dose Aspirin EC] 81 mg PO BID 30 Days #60 tab 04/18/23 [Rx] HYDROcodone/APAP 7.5-325MG [Bolton 7.5-325] 1 - 2 tab PO Q6H PRN #32 tab 04/18/23 [Rx] Sennosides [Senokot] 2 tab PO DAILY PRN #60 tablet 04/18/23 [Rx] Follow up Appointment(s)/Referral(s): Richar Jean Baptiste DO [Doctor of Osteopathic Medicine] - 2 Weeks Activity/Diet/Wound Care/Special Instructions: Weightbearing as tolerated with a walker. CPM 5-6h daily as tolerated. Leave dressing intact. Dressing may be removed by home care nurse or by patient in 7 days. Then change dressing twice daily until follow up. May shower with initial dressing intact and after removal. If dressing become saturated, please remove. Recommend use of compression stockings daily until follow up to help prevent swelling and blood clots. May remove at night before sleeping. Please take aspirin 81mg twice daily for 30 days to prevent blood clots. Please follow up with [facility] and call with any questions or concerns, . Discharge Disposition: HOME WITH HOME HEALTH SERVICES
[2023-04-19 07:42] VITALS: BP 102/64; PULSE 86; RESP 18
[2023-04-19] MEDS ORDERED: PANTOPRAZOLE 40 MG TABLET PO SCH (09:00)
[2023-04-19] MEDS ORDERED: LOSARTAN 25 MG TAB PO SCH (09:00)
[2023-04-19] MEDS ORDERED: SERTRALINE 25 MG TAB PO SCH (09:00)
[2023-04-19] MEDS: HYDROmorphone 0.5 MG/0.5 ML SYRINGE IVP PRN (09:40)
[2023-04-19 09:49] VITALS: TEMP 98.5
[2023-04-19 11:01] LABS: Basophils # (A) 0.02 X 10*3/uL (0.00-0.10); Basophils % (A) 0.2 %; Eosinophils # (A) 0.02 X 10*3/uL (0.04-0.35); Eosinophils % (A) 0.2 %; HCT 30.2 % (37.2-46.3); HGB 9.2 d/dL (12.0-15.0); Lymphocytes # (A) 2.69 X 10*3/uL (0.90-5.00); Lymphocytes % (A) 32.8 %; MCH 29.6 pg (27.0-32.0); MCHC 30.5 d/dL (32.0-37.0); MCV 97.1 FL (80.0-97.0); Mean Platelet Volume 11.2 FL (9.5-12.2); Monocytes # (A) 0.91 X 10*3/uL (0.20-1.00); Monocytes % (A) 11.1 %; NRBC Per 100 WBC 0.03 X 10*3/uL (0.00-0.01); Neutrophils # (A) 4.53 X 10*3/uL (1.80-7.70); Neutrophils % (A) 55.5 %; Platelet Count 168 X 10*3/uL (140-440); RBC 3.11 X 10*6/uL (4.10-5.20); RDW 13.3 % (11.5-14.5); WBC 8.19 X 10*3/uL (4.50-10.00)
[2023-04-19 11:12] LABS: Glucose,Whole Blood 215 mg/dL (70-110)
--- NOTE | 2023-04-19 14:09 | P.CONS ---
History of Present Illness - Reason for Consult Consult date: 04/19/23 Medical management, status post left total knee arthroplasty - History of Present Illness This is a 67-year-old female who was recently admitted under orthopedic services in who underwent left total knee arthroplasty, postop day #1. Patient reports she did follow with Dr. Mor Leos although follows now with [facility] Figueroa in the outpatient setting with past medical history of breast cancer, diabetes mellitus insulin-dependent, GERD, hyperlipidemia, hypertension, osteoarthritis, chronic renal disease, hypothyroidism, anxiety/depression. Patient reports she very rarely drinks alcohol was never a smoker and denies any other illicit drug use. Blood sugars monitored during hospitalization slightly elevated although maintained on sliding scale and home medications reviewed and resumed. Labs reviewed within normal limits. Patient did have a low-grade temp this morning although follow-up was within normal limits of 98.5F. Patient denies any chest pain or shortness of breath. Patient reports tolerating diet with no reports of nausea or vomiting noted. Patient denies any burning or pain with urination. Patient reports she is being scheduled for discharge home today. Patient did go to her primary care provider for presurgical clearance. Review Of Systems: Constitutional: No fever, no chills, no night sweats. No weight change. No weakness, fatigue or lethargy. No daytime sleepiness. EENT: No headache. No blurred vision or double vision, no loss of vision. No loss of Hearing, no ringing in the ears, no dizziness. No nasal drainage or congestion. No epistaxis. No sore throat. Lungs: No shortness of breath, cough, no sputum production. No wheezing. Cardiovascular: No chest pain, no lower extremity edema. No palpitations. No paroxysmal nocturnal dyspnea. No orthopnea. No lightheadedness or dizziness. No syncopal episodes. Abdominal: No abdominal pain. No nausea, vomiting. No diarrhea. No constipation. No bloody or tarry stools.. No loss of appetite. Genitourinary: No dysuria, increased frequency, urgency. No urinary retention. Musculoskeletal: No myalgias. No muscle weakness, no gait dysfunction, no frequent falls. No back pain. No neck pain. Reports some left knee pain and stiffness Integumentary: No wounds, no lesions. No rash or pruritus. No unusual bruising . No change in hair or nails. Neurologic: No aphasia. No facial droop. No change in mentation. No head injury. No headache. No paralysis. No paresthesia. Psychiatric: No depression. No anxiety. No mood swings. Endocrine: No abnormal blood sugars. No weight change. No excessive sweating or thirst. No cold intolerance. PHYSICAL EXAMINATION: GENERAL: The patient is alert and oriented x4, Well developed, well nourished. Obese. HEENT: Pupils are round and equally reacting to light. EOMI. no scleral icterus. No conjunctival pallor. Normocephalic, atraumatic. No pharyngeal erythema. No thyromegaly. CARDIOVASCULAR: S1 and S2 muffled PULMONARY: diminished breath sounds bilaterally with no wheezing or rhonchi noted. ABDOMEN: soft. Nontender on exam. obese. non-distended, normoactive bowel sounds. No palpable organomegaly. MUSCULOSKELETAL: No joint swelling or deformity. EXTREMITIES: No cyanosis, clubbing, or pedal edema. Left knee surgical site is dry and intact with minimal swelling and no surrounding redness noted. NEUROLOGICAL: Gross neurological examination did not reveal any focal deficits. Diffuse weakness SKIN: No rashes. Assessment: Status post left total knee arthroplasty Diabetes mellitus, insulin-dependent type 2 GERD Hyperlipidemia Hypertension History of breast arthritis Hypothyroidism Obesity with a BMI of 35.5 History of anxiety/depression GI prophylaxis DVT prophylaxis Full code Plan: Recommend to continue with current medications and management per orthopedic services. Patient has been seen and evaluated by PT/OT therapy today and re ports will be going home. Patient has support at home and also has a walker. Home medications reviewed and resumed as appropriate and would recommend follow- up with primary care provider on discharge Discussed diabetes and tight glycemic control Patient with incentive spirometer at the bedside encourage the patient to take home and continue using at least 10 times every hour while awake. Thank you for this consultation. We will continue to follow during hospitalization. The impression and plan of care has been dictated by Lori Cardenas, nurse practitioner as directed. Dr. Kevin MD I have performed a history and examination and MDM of this patient, discussed the same with the dictator, and agree with the dictator's assessment and plan as written ,documented as a scribe. Based on total visit time, I have performed more than 50% of the visit. Any additional findings or plans will be noted. Past Medical History Past Medical History: Cancer, Diabetes Mellitus, GERD/Reflux, Hyperlipidemia, Hypertension, Liver Disease, Osteoarthritis (OA), Renal Disease, Thyroid Disorder, Vascular Disorder Additional Past Medical History / Comment(s): 2020 left breast cancer/surgery and chemo/radiation, IDDM type II, fatty liver, kidney function is "moderate", murmur, aortic aneurysm, thyroid nodules recently biopsied, environmental allergies/sinus issues. History of Any Multi-Drug Resistant Organisms: None Reported Past Surgical History: Breast Surgery, Cholecystectomy, Hysterectomy, Joint Replacement, Orthopedic Surgery, Tubal Ligation Additional Past Surgical History / Comment(s): Right total knee replacement/revision, bilateral knee arthroscopy, thyroid biopsy/results pending, bilateral cataracts removed, L breast lumpectomy/lymph nodes removed, colonoscopy Past Anesthesia/Blood Transfusion Reactions: Previous Problems w/ Anesthesia Additional Past Anesthesia/Blood Transfusion Reaction / Comm: "Comes out of anesthesia slowly." Pt has never had a blood transfusion. Past Psychological History: Anxiety, Depression Additional Psychological History / Comment(s): Pt resides with spouse. Pt uses cane/walker prn. Smoking Status: Never smoker Past Alcohol Use History: None Reported Additional Past Alcohol Use History / Comment(s): VERY RARE Past Drug Use History: None Reported - Past Family History Mother Family Medical History: Cancer Additional Family Medical History / Comment(s): Cervical or ovarain cancer. Brother(s) Family Medical History: Cancer Additional Family Medical History / Comment(s): Pancreatic Cancer. . Sister(s) Family Medical History: Cancer Additional Family Medical History / Comment(s): LUNG CANCER, BONE CANCER, younger sister has lupus/raynauld's and some form cancer. Medications and Allergies Home Medications Medication Instructions Recorded Confirmed Type ALPRAZolam [Xanax] 0.25 mg PO TID PRN 08/19/20 04/18/23 History Lovastatin [Mevacor] 40 mg PO HS 08/19/20 04/18/23 History Metoprolol Tartrate [Lopressor] 25 mg PO BID 08/19/20 04/18/23 History ursodioL [Ursodiol] 600 mg PO BID 08/19/20 04/18/23 History metFORMIN HCL [Glucophage] 1,000 mg PO BID-W/MEALS 09/07/20 04/18/23 History ursodioL [Ursodiol] 300 mg PO HS 11/21/20 04/18/23 History Magnesium 800 mg PO BID 12/31/20 04/18/23 History Insulin Glargine,Hum.rec.anlog 55 units SQ HS 04/14/22 04/18/23 History [Lantus Solostar Pen] Pantoprazole [Protonix] 40 mg PO QAM 04/14/22 04/18/23 History Ferrous Sulfate [Iron (65 MG 1 tab PO HS 04/13/23 04/18/23 History Elemental)] Letrozole [Femara] 2.5 mg PO QAM 04/13/23 04/18/23 History Losartan [Cozaar] 25 mg PO QAM 04/13/23 04/18/23 History Multivitamin/Iron/Folic Acid 1 tab PO QAM 04/13/23 04/18/23 History [Centrum Adults Tablet] Pioglitazone [Actos] 30 mg PO QAM 04/13/23 04/18/23 History Sertraline [Zoloft] 25 mg PO QAM 04/13/23 04/18/23 History Aspirin [Adult Low Dose Aspirin EC] 81 mg PO BID 30 Days #60 tab 04/18/23 Rx HYDROcodone/APAP 7.5-325MG [[place] 1 - 2 tab PO Q6H PRN #32 tab 04/18/23 Rx 7.5-325] Sennosides [Senokot] 2 tab PO DAILY PRN #60 tablet 04/18/23 Rx Allergies Allergy/AdvReac Type Severity Reaction Status Date / Time hydralazine [From Apresoline] AdvReac Rapid Verified 04/18/23 09:54 Heart Rate Paper Tape Allergy Severe Rash/Hives Uncoded 04/18/23 09:54 surgical glue Allergy Severe Rash/BLISTE Uncoded 04/18/23 09:54 RS Physical Exam Vitals: Vital Signs Temp Pulse Pulse Resp BP Pulse Ox 04/19/23 09:49 98.5 F 04/19/23 07:42 101.2 F H 86 18 102/64 94 L 04/19/23 00:54 99.7 F H 78 19 102/58 96 04/18/23 19:14 98.2 F 85 19 110/70 95 04/18/23 16:05 57 L 118/73 97 04/18/23 15:50 64 116/72 97 04/18/23 15:35 70 118/72 96 04/18/23 15:20 72 128/79 98 04/18/23 15:05 80 134/85 94 L 04/18/23 14:50 79 130/85 95 04/18/23 14:35 65 134/80 97 04/18/23 14:20 71 136/79 97 04/18/23 14:05 57 L 126/80 96 04/18/23 13:49 60 16 138/61 97 04/18/23 13:34 64 16 136/67 95 04/18/23 13:19 68 16 123/63 96 04/18/23 13:04 96.9 F L 78 12 123/61 96 04/18/23 11:16 58 L 16 132/61 100 Intake and Output 04/18/23 04/19/23 04/19/23 22:59 06:59 14:59 Intake Total 210 Balance 210 Intake: IV 210 Sodium Chloride 0.9% 1, 210 000 ml @ 70 mls/hr IV . [id number] [facility] Rx#:[id number] Other: Voiding Method Toilet Toilet # Voids 3 Results CBC & Chem 7: 04/19/23 06:00 Labs: Abnormal Lab Results - Last 24 Hours (Table) 04/18/23 04/18/23 04/19/23 Range/Units 16:42 20:58 06:08 POC Glucose (mg/dL) 301 H 232 H 129 H (70-110) mg/dL
== END 2023-04-19 13:12 | disposition home health service (06) ==
LOC: OR 09:16 → 4SSUR 12:59 → OR 04-19 13:12
PROVIDERS: ATTEND Orthopaedic Surgery
DX: M17.12 Unilateral primary osteoarthritis, left knee (principal); M25.762 Osteophyte, left knee; G89.18 Other acute postprocedural pain; I12.9 Hypertensive chronic kidney disease with stage 1 through stage 4 chronic kidney disease, or unspecified chronic kidney disease; N18.9 Chronic kidney disease, unspecified; E11.22 Type 2 diabetes mellitus with diabetic chronic kidney disease; E78.5 Hyperlipidemia, unspecified; J45.909 Unspecified asthma, uncomplicated; Z85.3 Personal history of malignant neoplasm of breast; K76.0 Fatty (change of) liver, not elsewhere classified; F32.A Depression, unspecified; F17.200 Nicotine dependence, unspecified, uncomplicated; F10.20 Alcohol dependence, uncomplicated; Z79.51 Long term (current) use of inhaled steroids; Z79.84 Long term (current) use of oral hypoglycemic drugs; Z79.899 Other long term (current) drug therapy; Z96.651 Presence of right artificial knee joint; Z88.8 Allergy status to other drugs, medicaments and biological substances; Z91.048 Other nonmedicinal substance allergy status
CPT/HCPCS: 27447; 64999; 64448; 97161; 85025; 73560; C1713; C1776; C1751; J2250; J1100; J0690 ×3; J2405 ×2; J3010; J2795; J2370; J2704; J1170 ×2

== ENCOUNTER → 2023-05-19 | Outpatient (CLI) | payer MEDICARE ==
--- NOTE | 2023-05-19 14:50 | BD ---
EXAMINATION TYPE: Axial Bone Density DATE OF EXAM: 05/19/2023 CLINICAL HISTORY: 67 years old Female. ICD-10 CODE: C50.412 FELIPE OF UPPER OUTER QUAD OF L BREAST Height: 66 Weight: 221 FRAX RISK QUESTIONS: Family History (Parent hip fracture): no History of Fracture in Adulthood: no Secondary Osteoporosis: yes 3. Menopause before 45: yes 5. Chronic liver disease: yes Rheumatoid Arthritis: no RISK FACTORS HISTORY OF: Family History of Osteoporosis: no Active: yes Diet low in dairy products/other sources of calcium: yes Postmenopausal woman: yes, age 42 total hyst Lost more than 2 inches in height since high school: yes ,was 71 Frequent falls: no MEDICATIONS: Additional Medications: yes hbp meds, reflux, antineoplastic, heart meds, cholesterol, liver meds Additional History: yes radiation and chemo with breast cancer 2019 EXAM MEASUREMENTS: Bone mineral densitometry was performed using the Laguo System. Bone mineral density as measured about the Lumbar spine is: ----- L1-L4(G/cm2): 1.079 T Score Values are as follows: ----- L1: -0.8 ----- L2: -0.8 ----- L3: -0.3 ----- L4: -1.7 ----- L1-L4: -0.8 Z Score Values are as follows: ----- L1: -0.4 ----- L2: -0.4 ----- L3: 0.1 ----- L4: -1.2 ----- L1-L4: -0.4 Bone mineral density has: Decreased -7.3% since study of: 04/23/2021 Bone mineral density about the R hip (g/cm2): 0.912 Bone mineral density about the L hip (g/cm2): 0.891 T Score values are as follows: -----R Neck: -1.2 -----L Neck: -1.2 -----R Total: -0.8 -----L Total: -0.9 Z Score values are as follows: -----R Neck: -0.4 -----L Neck: -0.4 -----R Total: -0.4 -----L Total: -0.5 Bone mineral density has: Decreased -6.7% since study of: 04/23/2021 FRAX%s: The graph provided illustrates a 7.8% chance for a major osteoporotic fx and a 0.7% chance fo r the hips probability for fx in 10 years time. IMPRESSION: Normal (Values between +1 and -1 indicate normal bone mass). Consider repeating this study in 5 year s or sooner if there is some new clinical indication. NOTE: T-SCORE=SD OF THE YOUNG ADULT MEAN.
== END | disposition home or self-care (01) ==
LOC: RADBDWWP 13:29
PROVIDERS: ATTEND Internal Medicine Hematology & Oncology
DX: C50.412 Malignant neoplasm of upper-outer quadrant of left female breast (principal); M85.89 Other specified disorders of bone density and structure, multiple sites; Z78.0 Asymptomatic menopausal state
CPT/HCPCS: 77080

== ENCOUNTER → 2023-05-19 | Outpatient (CLI) | payer MEDICARE ==
--- NOTE | 2023-05-19 14:00 | US ---
EXAMINATION TYPE: US kidneys/renal and bladder DATE OF EXAM: 05/19/2023 COMPARISON: US 2020 CLINICAL INDICATION: Female, 67 years old with history of N18.31 KIDNEY DISEASE; EXAM MEASUREMENTS: Right Kidney: 11.4 x 5.3 x 5.5 cm Left Kidney: 10.8 x 4.6 x 4.9 cm Right Kidney: dilated renal pelvis, cortical thinning, lobulated contour Left Kidney: dilated renal pelvis, cortical thinning, lobulated contour Bladder: wnl Bilateral Jets seen: yes No nephrolithiasis is seen. No masses are identified. The urinary bladder is anechoic. Bilateral u reteral jets are seen. IMPRESSION: Mild bilateral hydronephrosis.
== END | disposition home or self-care (01) ==
LOC: RADUSWWP 13:27
PROVIDERS: ATTEND Internal Medicine
DX: N18.31 Chronic kidney disease, stage 3a (principal); N13.30 Unspecified hydronephrosis
CPT/HCPCS: 76770

== ENCOUNTER → 2023-05-26 | Outpatient (CLI) | payer MEDICARE ==
[2023-05-26 11:21] LABS: ALT 29 U/L (8-44); AST 27 U/L (13-35); Albumin 4.3 d/dL (3.8-4.9); Albumin/Globulin Ratio 1.72 Ratio (1.60-3.17); Alkaline Phosphatase 88 U/L (41-126); BUN/Creat Ratio 18.78 Ratio (12.00-20.00); Blood Urea Nitrogen 16.9 mg/dL (9.0-27.0); Calcium 10.3 mg/dL (8.7-10.3); Carbon Dioxide 27.5 mmol/L (21.6-31.8); Chloride 102 mmol/L (96-109); Chol/HDL Ratio 2.46 Ratio; Globulin 2.5 d/dL (1.6-3.3); Glucose 122 mg/dL (70-110); Sodium 140 mmol/L (135-145); Total Bilirubin 0.5 mg/dL (0.3-1.2); Total Protein 6.8 d/dL (6.2-8.2)
[2023-05-26 11:31] LABS: HCT 36.1 % (37.2-46.3); HGB 11.3 d/dL (12.0-15.0); MCH 30.1 pg (27.0-32.0); MCHC 31.3 d/dL (32.0-37.0); MCV 96.3 FL (80.0-97.0); NRBC Per 100 WBC 0 X 10*3/uL (0.00-0.01); Platelet Count 247 X 10*3/uL (140-440); RBC 3.75 X 10*6/uL (4.10-5.20); RDW 13.5 % (11.5-14.5); WBC 3.78 X 10*3/uL (4.50-10.00)
[2023-05-26 12:01] LABS: Microalbumin Creatinine Ratio <13 mg/g Cr (0-30); Urine Creatinine 89.3 mg/dL (28.0-217.0)
== END | disposition home or self-care (01) ==
LOC: LABWHC1 07:11
PROVIDERS: ATTEND Internal Medicine
DX: I10 Essential (primary) hypertension (principal); E11.65 Type 2 diabetes mellitus with hyperglycemia
CPT/HCPCS: 36415; 80053; 80061; 82043; 82570; 83036; 85027

== ENCOUNTER → 2023-05-31 | Outpatient (CLI) | payer MEDICARE ==
--- NOTE | 2023-05-31 14:53 | US ---
EXAMINATION TYPE: US venous doppler duplex LE LT DATE OF EXAM: 05/31/2023 2:27 PM COMPARISON: NONE CLINICAL INDICATION: Female, 68 years old with history of I80.9 PHLEBITIS AND THROMBOPHLEBITIS; recen t total left knee replacement with pain and swelling, no prev DVT SIDE PERFORMED: left TECHNIQUE: The lower extremity deep venous system is examined utilizing real time linear array sonog enmanuel with graded compression, doppler sonography and color-flow sonography. VESSELS IMAGED: Common Femoral Vein Deep Femoral Vein Greater Saphenous Vein * Femoral Vein Popliteal Vein Small Saphenous Vein * Proximal Calf Veins (* superficial vessels) Left Leg: neg for LLE DVT; minimally complex pop fossa cyst measuring 3.7 x 3.1 x 0.8 cm. Results called to Vaishali in the office at the time of the exam. IMPRESSION: No evidence for DVT within the left lower abdomen imaged from the groin to the upper calf. Small-to-m oderate sized 3.7 cm Montel[place] cyst.
== END | disposition home or self-care (01) ==
LOC: RADUSWWP 14:11
PROVIDERS: ATTEND Orthopaedic Surgery
DX: M71.22 Synovial cyst of popliteal space [Baker], left knee (principal); I80.9 Phlebitis and thrombophlebitis of unspecified site; Z96.652 Presence of left artificial knee joint; M17.12 Unilateral primary osteoarthritis, left knee; Z47.1 Aftercare following joint replacement surgery

== ENCOUNTER → 2023-06-13 | Outpatient (CLI) | payer MEDICARE ==
[2023-06-13 09:56] LABS: African American GFR (CKD) 73 (>60 ml/min/1.73 sqM); Blood Urea Nitrogen 19 mg/dL (7-17); Non-African American GFR(CKD) 63 (>60 ml/min/1.73 sqM)
--- NOTE | 2023-06-13 10:51 | CT ---
EXAMINATION TYPE: CT urogram wo/w con CT DLP: 3273 mGycm, Automated exposure control for dose reduction was used. DATE OF EXAM: 06/13/2023 10:42 AM COMPARISON: CT abdomen pelvis most recent from 11/21/2020, renal ultrasound 05/19/2023 CLINICAL INDICATION:Female, 68 years old with history of N13.30 HYDRONEPHROSIS; PHH, TECHNIQUE: Urogram of the abdomen and pelvis was performed before and after the administration of 100 cc of IV c ontrast Isovue 300 contrast. Delayed imaging was performed. Coronal and sagittal reformats were perfo rmed. One or more CT dose reduction strategies were utilized during this examination. 2D and 3D recon structions are performed to assist visualization of the urinary tract on a separate workstation. FINDINGS: GENITOURINARY: RIGHT KIDNEY AND URETER: No calculi. No hydronephrosis or hydroureter. No renal mass or other lesions . No urothelial lesions: no filling defect, dilation, stricture or wall thickening. LEFT KIDNEY AND URETER: No calculi. No hydronephrosis or hydroureter. No renal mass or other lesions. No urothelial lesions: no filling defect, dilation, stricture or wall thickening. URINARY BLADDER: Not optimally distended. No calculi or gross evidence for mass or other lesions. REPRODUCTIVE: Unremarkable. ABDOMEN LIVER: Unremarkable. GALLBLADDER AND BILE DUCTS: Gallbladder is surgically absent. No biliary ductal dilatation. PANCREAS: Unremarkable. SPLEEN: Few calcified granulomas identified. Subcentimeter hypodense focus which likely represents a benign cyst or hemangioma. ADRENAL GLANDS: Unremarkable. STOMACH AND BOWEL: Unremarkable. No evidence of bowel obstruction. PERITONEUM: No evidence of pneumoperitoneum, free fluid, or adenopathy. VASCULATURE: No aortic aneurysm. Minimal atherosclerotic calcification of the aorta and its branches. MUSCULOSKELETAL: No acute osseous abnormalities. SOFT TISSUE/ABDOMINAL WALL: Small fat filled umbilical hernia. LOWER CHEST: No significant findings. IMPRESSION: No evidence of urolithiasis or renal/urothelial neoplasm. No hydronephrosis.
== END | disposition home or self-care (01) ==
LOC: RADCTMAIN 09:26
PROVIDERS: ATTEND Urology
DX: N13.30 Unspecified hydronephrosis (principal)
CPT/HCPCS: 82565; 84520; 74178; 36415; 74400; Q9967

== ENCOUNTER → 2023-06-14 | Outpatient (CLI) | payer MEDICARE ==
[2023-06-14 16:41] LABS: ALT 32 U/L (8-44); AST 27 U/L (13-35); Albumin 4.4 d/dL (3.8-4.9); Albumin/Globulin Ratio 1.83 Ratio (1.60-3.17); Alkaline Phosphatase 83 U/L (41-126); BUN/Creat Ratio 15.09 Ratio (12.00-20.00); Blood Urea Nitrogen 16.6 mg/dL (9.0-27.0); Calcium 10.3 mg/dL (8.7-10.3); Carbon Dioxide 27.9 mmol/L (21.6-31.8); Chloride 100 mmol/L (96-109); Globulin 2.4 d/dL (1.6-3.3); Glucose 198 mg/dL (70-110); Potassium 5.4 mmol/L (3.5-5.5); Sodium 140 mmol/L (135-145); Total Bilirubin 0.6 mg/dL (0.3-1.2); Total Protein 6.8 d/dL (6.2-8.2)
== END | disposition home or self-care (01) ==
LOC: LABWHC1 08:34
PROVIDERS: ATTEND Internal Medicine
DX: N18.31 Chronic kidney disease, stage 3a (principal)
CPT/HCPCS: 36415; 80053

== ENCOUNTER → 2023-07-03 | Outpatient (CLI) | payer MEDICARE | END | disposition home or self-care (01) | LOC: LABWHC1 10:29 | PROVIDERS: ATTEND Internal Medicine | DX: Z20.822 Contact with and (suspected) exposure to COVID-19 (principal); B34.8 Other viral infections of unspecified site | CPT/HCPCS: U0003; U0005 ==

== ENCOUNTER → 2023-08-10 | Outpatient (CLI) | payer MEDICARE ==
--- NOTE | 2023-08-11 11:46 | MM ---
Reason for Exam: Hx of breast cancer, conservation therapy. Last screening mammogram was performed 12 month(s) ago. Patient History: Menarche at age 14. First Full-Term at age 21. Left ovary removed at age 41. Right ovary removed at age 41. Hysterectomy at age 41. Postmenopausal. Breast cancer, left, age 65. Previous chest radiation therapy at age 65. Previous chemotherapy at age 65. Estrogen for 18 years from age 41 until age 59. 09/09/2020, Lumpectomy on the Left side. 09/09/2020, Malignant Core Biopsy on the left side. 08/26/2020, Malignant Core Biopsy on the left side. Prior Study Comparison: 05/08/2018 Bilateral Screening Mammogram, [facility]. 06/10/2019 Bilateral Screening Mammogram, [facility]. 07/24/2020 Bilateral Screening Mammogram, [facility]. 08/26/2020 Left Diagnostic Mammogram, [facility]. 07/26/2021 Bilateral Diagnostic Mammogram, [facility]. 02/01/2022 Left Diagnostic Mammogram, [facility]. 08/09/2022 Bilateral MG 3D diag mammo w/cad [facility], [facility]. Tissue Density: The breast tissue is heterogeneously dense. This may lower the sensitivity of mammography. Findings: Analyzed By CAD. There is no suspicious group of microcalcifications or new suspicious mass in either breast. Stable left-sided lumpectomy changes. Overall Assessment: Benign, BI-RAD 2 Management: Screening Mammogram of both breasts in 1 year. . Patient should continue monthly self-breast exams. A clinical breast exam by your physician is recommended on an annual basis. This exam should not preclude additional follow-up of suspicious palpable abnormalities. Note on Nazia scores and lifetime risk: 1. A Nazia score greater than 3% is considered moderate risk. If this is the case, consider specialist referral to assess eligibility for a risk reducing agent. 2. If overall lifetime risk for the development of breast cancer is 20% or higher, the patient may qualify for future screening with alternating mammogram and breast MRI. Electronically signed and approved by: Dayton Lopez M.D. Radiologis
== END | disposition home or self-care (01) ==
LOC: RADMAMWWP 09:24
PROVIDERS: ATTEND Internal Medicine Hematology & Oncology
DX: Z12.31 Encounter for screening mammogram for malignant neoplasm of breast (principal); Z78.0 Asymptomatic menopausal state; Z85.3 Personal history of malignant neoplasm of breast
CPT/HCPCS: 77063; 77067

== ENCOUNTER → 2023-09-21 | Outpatient (CLI) | payer MEDICARE ==
[2023-09-21 11:40] LABS: Calcium 10.5 mg/dL (8.7-10.3); Magnesium 1.8 mg/dL (1.5-2.4); Phosphorus 2.9 mg/dL (2.4-5.1)
[2023-09-21 11:49] LABS: T4, Free (Free Thyroxine) <0.11 ng/dL (0.80-1.80)
== END | disposition home or self-care (01) ==
LOC: LABWHC1 07:12
PROVIDERS: ATTEND Internal Medicine
DX: C73 Malignant neoplasm of thyroid gland (principal)
CPT/HCPCS: 36415; 82310; 82570; 83735; 84100; 84432; 84439; 84443; 86800

== ENCOUNTER → 2023-09-27 | Outpatient (CLI) | payer MEDICARE ==
--- NOTE | 2023-09-29 11:52 | NM ---
EXAMINATION TYPE: NM thyroid uptake only single DATE OF EXAM: 09/28/2023 COMPARISON: NONE CLINICAL INDICATION: Female, 68 years old with history of C73 Malig neoplasm thyroid gland; Technique: Following administration of 99 uCi I-123 capsule. No images were obtained. FINDINGS: 24-hour uptake at 1.6% 4 hour uptake was not performed. IMPRESSION: Thyroid uptake compatible with hypothyroid.
== END | disposition home or self-care (01) ==
LOC: RADNMMAIN 08:29
PROVIDERS: ATTEND Internal Medicine
DX: C73 Malignant neoplasm of thyroid gland (principal)
CPT/HCPCS: 78012; A9516

== ENCOUNTER → 2023-10-03 | Outpatient (CLI) | payer MEDICARE ==
--- NOTE | 2023-10-08 16:57 | NM ---
EXAMINATION TYPE: NM Thyroid Iodine Therapy Oral DATE OF EXAM: 10/03/2023 Comparison: Uptake exam 09/27/2023 HISTORY: 68-year-old female C7 3, history of thyroid cancer status post total thyroidectomy. TECHNIQUE: The patient is on thyroid hormone withdrawal and low iodine diet. Dose was prescribed (written directive) by an Authorized User in conjunction with treatment request a nd consultation with Dr. Monet. Risks, benefits, and potential complications of radioactive I-131 therapy were discussed in detail wi th the patient by myself and the fence supervisor. Verbal and written informed consent wer e obtained. Written instructions were given for radiation safety precautions to be observed for 5 day s outpatient. The patient specific exposure calculations were done by RSO to ensure estimated max dose to any indiv idual exposed to the patient was less than 5 mSv. The patient was specifically advised to avoid close contact with children, women, and other members of public. Dose was verified in dose caliber and patient was given oral I-131 pill under the supervision of the fence supervisor. There were no immediate complications. IMPRESSION: Outpatient 108.6 mCi I-131 oral therapy capsule for thyroid remnant ablation. Patient will return for her posttreatment whole body scan on days 2 and 3.
== END | disposition home or self-care (01) ==
LOC: RADNMMAIN 15:09
PROVIDERS: ATTEND Internal Medicine
DX: C73 Malignant neoplasm of thyroid gland (principal)
CPT/HCPCS: 79005; A9517

== ENCOUNTER → 2023-10-05 | Outpatient (CLI) | payer MEDICARE ==
--- NOTE | 2023-10-08 21:16 | NM ---
EXAMINATION TYPE: NM I-131 Whole Body Imaging DATE OF EXAM: 10/06/2023 Comparison: None Clinical History: 68-year-old female, whole body scan following radioactive iodine remnant ablation t herapy. C73 thyroid ca TECHNIQUE: Following the oral administration of 108.6 mCi I-131 on 10/03/2023, whole body scan was p erformed 2 and 3 days after radiotracer administration. Findings: There is physiologic uptake within the salivary glands, nasopharynx, stomach, colon, and bladder. Focal intense activity anterior midline neck compatible with remnant uptake and ablation. Additional small focus of uptake at this same level within the anterior neck just to the right of mid line. Otherwise, no abnormal tracer activity is seen throughout the body. Impression: 1. Focal activity along the anterior midline neck corresponding to the remnant ablation. 2. Additional subtle small focus of activity right paramedian mid neck adjacent to the remnant ablati on. Possible uptake within an abnormal right cervical lymph node. 3. Otherwise, no evidence for metastatic disease elsewhere in the body.
== END | disposition home or self-care (01) ==
LOC: RADNMMAIN 12:49
PROVIDERS: ATTEND Internal Medicine
DX: C73 Malignant neoplasm of thyroid gland (principal)
CPT/HCPCS: 78018

== ENCOUNTER → 2024-03-11 | Outpatient (CLI) | payer MEDICARE ==
[2024-03-11 16:16] LABS: T4, Free (Free Thyroxine) 1.87 ng/dL (0.80-1.80)
== END | disposition home or self-care (01) ==
LOC: LABWHC1 08:00
PROVIDERS: ATTEND Internal Medicine
DX: C73 Malignant neoplasm of thyroid gland (principal); E03.9 Hypothyroidism, unspecified; E11.65 Type 2 diabetes mellitus with hyperglycemia
CPT/HCPCS: 36415; 83036; 84432; 84439; 84443; 86800

== ENCOUNTER → 2024-08-15 | Outpatient (CLI) | payer MEDICARE ==
--- NOTE | 2024-08-15 12:07 | US ---
EXAMINATION TYPE: US kidneys/renal and bladder DATE OF EXAM: 08/15/2024 COMPARISON: US 05/19/2023 CLINICAL INDICATION: Female, 69 years old with history of N18.31 CHRONIC KIDNEY DISEASE, STAGE 3A; TECHNIQUE: Grayscale and color Doppler imaging of the bilateral kidneys and urinary bladder: FINDINGS: EXAM MEASUREMENTS: Right Kidney: 10.7 x 4.8 x 4.4 cm Left Kidney: 10.4 x 4.9 x 5.4 cm Right Kidney: cortical thinning, lobulated contour Left Kidney: cortical thinning, lobulated contour Bladder: wnl Bilateral Jets seen: yes No hydronephrosis or nephrolithiasis. IMPRESSION: Bilateral cortical renal thinning compatible with chronic medical renal disease. [facility], , 08/15/2024 12:05 PM
== END | disposition home or self-care (01) ==
LOC: RADUSWWP 10:10
PROVIDERS: ATTEND Internal Medicine
DX: N18.31 Chronic kidney disease, stage 3a
CPT/HCPCS: 76770

== ENCOUNTER → 2024-08-15 | Outpatient (CLI) | payer MEDICARE ==
--- NOTE | 2024-08-19 17:53 | MM ---
Reason for Exam: Screening (asymptomatic). Last screening mammogram was performed 12 month(s) ago. Patient History: Menarche at age 14. First Full-Term at age 21. Left ovary removed at age 41. Right ovary removed at age 41. Hysterectomy at age 41. Postmenopausal. Breast cancer, left, age 65. Previous chest radiation therapy at age 65. Previous chemotherapy at age 65. Estrogen for 18 years from age 41 until age 59. 09/09/2020, Lumpectomy on the Left side. 09/09/2020, Malignant Core Biopsy on the left side. 08/26/2020, Malignant Core Biopsy on the left side. Prior Study Comparison: 02/01/2022 Left Diagnostic Mammogram, [facility]. 08/09/2022 Bilateral MG 3D diag mammo w/cad [facility], [facility]. 08/10/2023 Bilateral MG 3D screening mammo w/cad, [facility]. Tissue Density: The breasts are heterogeneously dense, which may obscure small masses. Findings: Analyzed By CAD. Postsurgical and posttreatment changes left breast. Unchanged areas of asymmetric density on the right. There is no suspicious group of microcalcifications or new suspicious mass in either breast. Overall Assessment: Benign, BI-RAD 2 Management: Screening Mammogram of both breasts in 1 year. . Patient should continue monthly self-breast exams. A clinical breast exam by your physician is recommended on an annual basis. This exam should not preclude additional follow-up of suspicious palpable abnormalities. [facility], , 08/19/2024 5:50 PM. Electronically signed and approved by: José Miguel Newman M.D. Radiologist
== END | disposition home or self-care (01) ==
LOC: RADMAMWWP 10:08
PROVIDERS: ATTEND Family Medicine
CPT/HCPCS: 77063; 77067

== ENCOUNTER → 2025-05-20 | Outpatient (CLI) | payer MEDICARE ==
--- NOTE | 2025-05-21 12:13 | BD ---
EXAMINATION TYPE: Axial Bone Density DATE OF EXAM: 05/20/2025 CLINICAL HISTORY: 69 years old Female. ICD-10 CODE: M81.0 OSTEOPENIA , Additional History: Height: 66 Weight: 249 FRAX RISK QUESTIONS: Family History (Parent hip fracture): no History of Fracture in Adulthood: no Secondary Osteoporosis: yes 3. Menopause before 45: yes 5. Chronic liver disease: yes RISK FACTORS HISTORY OF: Surgery to Spine/Hip(right/left)/Wrist (right/left): no MEDICATIONS: Thyroid Medications: yes Which medication: Levothyroxine How Lon+ years Osteoporosis Medications: no EXAM MEASUREMENTS: Bone mineral densitometry was performed using the [employer] System. Bone mineral density as measured about the Lumbar spine is: ----- L1-L4(G/cm2): 1.081 T Score Values are as follows: ----- L1: -1.3 ----- L2: -1.2 ----- L3: -0.2 ----- L4: -0.9 ----- L1-L4: -0.8 Z Score Values are as follows: ----- L1: -0.8 ----- L2: -0.7 ----- L3: 0.3 ----- L4: -0.5 ----- L1-L4: -0.4 Bone mineral density has: Decreased -3.8% since study of: 05/19/2023 Bone mineral density about the R hip (g/cm2): 0.857 Bone mineral density about the L hip (g/cm2): 0.857 T Score values are as follows: -----R Neck: -1.5 -----L Neck: -1.7 -----R Total: -1.2 -----L Total: -1.2 Z Score values are as follows: -----R Neck: -0.6 -----L Neck: -0.9 -----R Total: -0.7 -----L Total: -0.7 Bone mineral density has: Decreased -5.0% since study of: 05/19/2023 FRAX%s: The graph provided illustrates a 9.1% chance for a major osteoporotic fx and a 1.2% chance fo r the hips probability for fx in 10 years time. IMPRESSION: Osteopenia (T Score between -2.5 and -1). There is slightly increased risk of fracture and the patient may be considered for treatment. Re-Screen 2-5 years. NOTE: T-SCORE=SD OF THE YOUNG ADULT MEAN. [facility], , 05/21/2025 12:11 PM
== END | disposition home or self-care (01) ==
LOC: RADBDWWP 15:05
PROVIDERS: ATTEND Internal Medicine Hematology & Oncology
DX: M81.0 Age-related osteoporosis without current pathological fracture (principal); D64.81 Anemia due to antineoplastic chemotherapy; I10 Essential (primary) hypertension; E78.5 Hyperlipidemia, unspecified; C73 Malignant neoplasm of thyroid gland; M85.89 Other specified disorders of bone density and structure, multiple sites; C50.412 Malignant neoplasm of upper-outer quadrant of left female breast; Z71.3 Dietary counseling and surveillance; Z78.0 Asymptomatic menopausal state
CPT/HCPCS: 77080